=== PATIENT | male | born 1935 | race Caucasian/White ===

== ENCOUNTER 2020-07-14 14:15 | Inpatient (IN) | payer MEDICARE, MEDICAID, SELFPAY ==
[2020-07-14] VITALS (7 sets, daily range): BP systolic 116–151; BP diastolic 45–63; PULSE 64–81; RESP 16–22; TEMP 37.3–37.6; O2SAT 85–99; BMI 29.2
--- NOTE | 2020-07-14 14:34 | ECG_ITS ---
Test Reason : ALTERED MENTAL STATU Blood Pressure : / mmHG Vent. Rate : 082 BPM Atrial Rate : 082 BPM P-R Int : 148 ms QRS Dur : 126 ms QT Int : 430 ms P-R-T Axes : 025 -44 046 degrees QTc Int : 502 ms Normal sinus rhythm Left axis deviation Right bundle branch block Abnormal ECG When compared with ECG of 16-MAY-2019 19:32, Premature ventricular complexes are no longer Present Referred By: Selena Galindo Electronically Signed By:ANA QUINONES
--- NOTE | 2020-07-14 14:35 | CT_ITS ---
EXAMINATION: CT HEAD WITHOUT CONTRAST CLINICAL INFORMATION: Weakness. COMPARISON: Most recent CT brain dated 03/20/2017. TECHNIQUE: Contiguous axial imaging was performed from the skull base to vertex without intravenous administration of contrast. This CT examination was performed using dose optimization techniques as appropriate, variously including the following: *Automated exposure control. *Adjustment of mA and/or kV according to patient size (this includes techniques or standardized protocols for targeted exams where dose is matched to indication/reason for exam; i.e. extremities or head). *Use of iterative reconstruction technique. DLP: 865 mGy-cm FINDINGS: There is no evidence of acute intracranial hemorrhage or territorial infarction. No abnormal mass effect or midline shift is seen. Ldzx-dw-nnity matter differentiation is well preserved. No extra-axial fluid collections are identified. The ventricles and sulci are mildly prominent, consistent with mild cerebral atrophy. Hypoattenuation of the periventricular white matter, consistent with chronic microvascular ischemic disease. The osseous structures and soft tissues are normal. The mastoid air cells and visualized portions of the paranasal sinuses are well aerated. CT/CT head/brain wo con IMPRESSION: 1. No acute intracranial hemorrhage or mass effect. 2. Mild cerebral atrophy and chronic microvascular ischemic disease, similar when compared to the prior examination.
--- NOTE | 2020-07-14 14:36 | XR_ITS ---
EXAMINATION: XR CHEST CLINICAL INFORMATION: Shortness of breath COMPARISON: 05/16/2019 TECHNIQUE: Frontal view of the chest was obtained. FINDINGS: The patient is rotated towards the right. Normal heart size. Calcifications of the thoracic aorta. Patchy opacity in the right lower lobe. Left lung is clear. No pleural effusion or pneumothorax. No acute osseous abnormality. XR/XR chest 1V IMPRESSION: Patchy opacity in the right lower lobe, that may represent developing infiltrate.
--- NOTE | 2020-07-14 15:13 | ED_ITS ---
HPI - Weakness General Chief complaint: Altered Mental Status Stated complaint: weakness Time Seen by Provider: 07/14/20 14:20 Source: EMS and RN notes reviewed (From para 1) Mode of arrival: EMS Limitations: language barrier ([place] Citizen-speaking) and altered mental status (History of dementia) History of Present Illness HPI Narrative: 84yoM c PMHx of Alzheimer's dementia, CVA, TBI, dysphagia, DM type II, CAD, HTN, COPD, anemia, hypothyroidism, gout, and depression who is currently residing at [facility] presenting via EMS c c/o increased weakness/AMS, difficulty following directions they report that he usually takes his medications and today he was spitting them out x 3 days. Patient had negative rapid COVID swab done today at [facility] which was negative. On arrival with EMS patient was 87% on room air therefore we placed him on 3 L of nasal cannula oxygen and he is now around 94-96% on 3 L of nasal cannula oxygen. When I asked the patient questions he mainly groans and he stated ?my body hurts in [place]?. When I would ask him if he had any chest pain or abdominal pain he would just keep responding my body hurts in [place] and would continue to just goan. Related Data Allergies Allergy/AdvReac Type Severity Reaction Status Date / Time No Known Allergies Allergy Verified 07/14/20 14:30 [No Known Allergies*] Review of Systems Review of Systems: Yes Unobtainable due to mental condition and Unobtainable due to mental status PMFSH Past Medical History Attestation statement: The following information was validated with the patient. Medical History Alzheimer disease Chronic pain COPD (chronic obstructive pulmonary disease) COVID-19 CVA (cerebral vascular accident) Dysphagia GERD (gastroesophageal reflux disease) Gout Hypokalemia Hypothyroid Pneumonia Social History Social History Advance Directives: No Advance Directives Information Provided: No Physical Exam Vital Signs: Vital Signs: Last Vital Signs Temp 99.2 F 07/14/20 14:22 Pulse 71 07/14/20 15:25 Resp 22 H 07/14/20 14:22 BP 151/59 H 07/14/20 14:22 Pulse Ox 85 L 07/14/20 14:32 Body Mass Index 29.2 Vital signs have been reviewed as normal and appeared to be correct. Blood pressure normal. Heart rate normal. Respiration rate normal. Temperature normal. Oxygen saturation normal. Appearance: Lethargic. Disorientated due to history of Alzheimer's dementia. Acute Respiratory distress. Patient mainly groaning repeating My Body Hurts in [place] . Head: Normal external exam. Normocephalic. Atraumatic. Able to rotate head bilaterally. Eyes: PERRLA. EOMI. No nystagmus noted. Conjunctiva and sclera normal. Eyelids normal. Corneal reflex normal. ENT: Hearing normal. Pharynx normal. Uvula midline. tongue midline. Dry mucous membranes. No trismus noted. No drooling noted. No muffled voice noted. Neck: Normal inspection. Neck supple. FROM. No adenopathy. No meningeal signs. CVS: Normal heart rate and rhythm. Heart sound normal. No murmurs noted. Pulses normal throughout. Respiratory: Moderate acute Respiratory distress. With decreased breath sounds throughout. With inspiratory and expiratory wheezing throughout. Possible rhonchi noted. No rales noted. Chest nontender. Positive accessory muscle usage noted. Abdomen: Soft and nontender. Bowel sounds normal in all 4 quadrants. No distention noted. No organomegaly noted. No visible injury noted. Back: Full range of motion noted. Skin: Skin warm and dry. Normal skin color. Normal skin turgor. No rashes/lesions/lacerations noted. Extremities: No lower extremity edema. Extremities exhibit normal range of motion. Extremities nontender. Neuro: Disorientated. No motor deficit. No sensory deficit. Reflexes normal. Moving all extremities. No focal motor deficits. Cranial nerves II-XI intact bilaterally. When I explained to the patient to left of his by brows or to smile or to puff out his cheeks or to stick out his tongue he does not follow directions he just continues to groan and report that his body hurts. He did attempt to squeeze my hands with his fingers and he did have equal strength bilaterally. He is able to lift his hands up and they do not drop to his face. He is able to move his lower extremities and lift them up. No tremor noted. No fasciculations noted. Muscle tone normal throughout. No asterixis noted. Course Course Course Narrative: 14:35PM - 84yoM c PMHx of Alzheimer's dementia, CVA, TBI, dysphagia, DM type II, CAD, HTN, COPD, anemia, hypothyroidism, gout, and depression who is currently residing at [facility] presenting via EMS c c/o increased weakness/AMS, difficulty following directions x 3 days. Patient had negative rapid COVID swab done today at [facility]. - On arrival with EMS patient was 87% on room air therefore we placed him on 3 L of nasal cannula oxygen and he is now around 94-96% on 3 L of nasal cannula oxygen. Patient is a lethargic and confused continues to moan and fritzan speaking in [place] saying ?my body hurts?. Although no acute neuro deficits noted. Patient is moving all extremities. - concern for CVA vs ACS vs pneumonia vs electrolyte abnormality - Plan: Labs, CXR, Respiratory Panel, blood cultures, lactic acid, CT scan of brain, EKG, UA. Provide IVF's, 1 hour long breathing treatment, 125 mg of Solu- Medrol then re-evaluate. Reevaluation(s) Reevaluation #1: - initially for the First 2 hours and half we were unable to obtain IV access and a blood draw although at this time they were able to get the patient's blood and his labs are pending at this time. UA positive for nitrates which cefepime will cover as well. Sign-out a IRIS Levin at this time. Time: 17:04 MDM - Weakness Medical Records Attestation: I reviewed the patient's medical records. Lab Data Attestation: I reviewed the patient's lab results. Result diagrams: 07/14/20 16:41 07/14/20 16:41 Labs: Lab Results 07/14/20 07/14/20 07/14/20 Range/Units 16:41 16:41 16:41 WBC Cancelled RBC Cancelled Hgb Cancelled Hct Cancelled MCV Cancelled MCH Cancelled MCHC Cancelled RDW Cancelled Plt Count Cancelled MPV Cancelled Immature Gran % (Auto) Cancelled Neut % (Auto) Cancelled Lymph % (Auto) Cancelled [place] % (Auto) Cancelled Eos % (Auto) Cancelled Baso % (Auto) Cancelled Lymph # (Auto) Cancelled [place] # (Auto) Cancelled Eos # (Auto) Cancelled Baso # (Auto) Cancelled Abs Immat Gran (auto) Cancelled Absolute Neuts (auto) Cancelled Absolute Nucleated RBC Cancelled Nucleated RBC % (auto) Cancelled PT (10.8-13.0) SEC INR (0.9-1.1) Lactic Acid 1.6 (0.5-2.0) mmol/L Urine Color YELLOW Urine Appearance HAZY Urine pH 7.5 (5.0-8.0) Ur Specific [place] 1.010 (1.005-1.025) Urine Protein NEG (NEG-TRACE) MG/DL Urine Glucose (UA) NEG (NEG) MG/DL Urine Ketones NEG (NEG) MG/DL Urine Blood TRACE (NEG) Urine Nitrite POS H (NEG) Ur Leukocyte Esterase 3+ H (NEG) Urine RBC 1-4 (0) /HPF Urine WBC 50-75 H (0-4) /HPF Ur Squamous Epith Cells TRACE /LPF Urine Bacteria 3+ /LPF 07/14/20 Range/Units 17:00 WBC RBC Hgb Hct MCV MCH MCHC RDW Plt Count MPV Immature Gran % (Auto) Neut % (Auto) Lymph % (Auto) [place] % (Auto) Eos % (Auto) Baso % (Auto) Lymph # (Auto) [place] # (Auto) Eos # (Auto) Baso # (Auto) Abs Immat Gran (auto) Absolute Neuts (auto) Absolute Nucleated RBC Nucleated RBC % (auto) PT 15.2 H (10.8-13.0) SEC INR 1.3 H (0.9-1.1) Lactic Acid (0.5-2.0) mmol/L Urine Color Urine Appearance Urine pH (5.0-8.0) Ur Specific [place] (1.005-1.025) Urine Protein (NEG-TRACE) MG/DL Urine Glucose (UA) (NEG) MG/DL Urine Ketones (NEG) MG/DL Urine Blood (NEG) Urine Nitrite (NEG) Ur Leukocyte Esterase (NEG) Urine RBC (0) /HPF Urine WBC (0-4) /HPF Ur Squamous Epith Cells /LPF Urine Bacteria /LPF Imaging Data Chest x-ray: Attestation: I personally reviewed and interpreted this imaging study as follows: Radiologist's impression: IMPRESSION: Patchy opacity in the right lower lobe, that may represent developing infiltrate. ECG Data Attestation: I personally reviewed and interpreted this ECG as follows: Critical Care Time Critical Care Time Critical Care Time: Yes Total Critical Care Time: 60 Attestation: I personally attest to this time spent taking care of the patient Discharge Plan Discharge Clinical Impression: Hypoxia, Acute respiratory distress
[2020-07-14] MEDS: Albuterol Sulfate (0.083%) 2.5 MG/3 ML VIAL.NEB 10 MG INHALE (15:18)
[2020-07-14 16:55] LABS: Glucose Urine UA NEG (NEG); Leukocyte Esterase Urine 3+ (NEG); Nitrite Urine POS (NEG); PH 7.5 (5.0-8.0); Urine Blood TRACE (NEG); Urine Ketones NEG (NEG); Urine Protein NEG (NEG-TRACE)
[2020-07-14 16:59] LABS: Appearance Urine HAZY; Color Urine YELLOW
[2020-07-14 17:06] LABS: Bacteria Urine 3+ /LPF; Squamous Epithelial Cell Urine TRACE /LPF; WBC Urine 50-75 /HPF (0-4)
[2020-07-14 17:10] LABS: Adenovirus PCR Not Detected (Not Detect.); Bordetella parapertussis PCR Not Detected (Not Detect.); Bordetella pertussis PCR Not Detected (Not Detect.); Chlamydia pneumoniae PCR Not Detected (Not Detect.); Coronavirus 229E PCR Not Detected (Not Detect.); Coronavirus HKU1 PCR Not Detected (Not Detect.); Coronavirus NL63 PCR Not Detected (Not Detect.); Coronavirus OC43 PCR Not Detected (Not Detect.); Human metapneumovirus PCR Not Detected (Not Detect.); Influenza A PCR Not Detected (Not Detect.); Influenza B PCR Not Detected (Not Detect.); Mycoplasma pneumoniae PCR Not Detected (Not Detect.); Parainfluenza 1 PCR Not Detected (Not Detect.); Parainfluenza 2 PCR Not Detected (Not Detect.); Parainfluenza 3 PCR Not Detected (Not Detect.); Parainfluenza 4 PCR Not Detected (Not Detect.); RSV PCR Not Detected (Not Detect.); SARS-CoV-2 PCR Not Detected (Not Detect.)
[2020-07-14 17:13] LABS: INTERNATIONAL NORM RATIO 1.3 (0.9-1.1); Prothrombin Time 15.2 SEC (10.8-13.0)
[2020-07-14 17:14] LABS: Lactic Acid 1.6 mmol/L (0.5-2.0)
--- NOTE | 2020-07-14 17:17 | PC.NURSE ---
Patient difficult stick, 2 RN's attempted IV's x 2 without success. IV established by 3rd RN via ultrasound
[2020-07-14 17:19] LABS: Alanine Aminotransferase 28 U/L (0-40); Albumin Level 2.9 g/dL (3.5-5.0); Alkaline Phosphatase 133 U/L (39-117); Anion Gap 11 (12-20); Aspartate Amino Transferase 30 U/L (5-37); Bilirubin Direct 0.4 mg/dL (0.0-0.5); Bilirubin Total 0.6 mg/dL (0.0-1.0); Blood Urea Nitrogen 23 mg/dL (9-16); Calcium 7.7 mg/dL (8.4-10.2); Carbon Dioxide 22 mmol/L (22-29); Chloride 111 mmol/L (96-108); Estimated Glomerular Filt Rate > 60; Glucose Random 116 mg/dL (60-115); Magnesium 2.2 mg/dL (1.6-2.6); Potassium 4.9 mmol/l (3.3-5.1); Sodium 139 mmol/L (135-145); Total Protein 6.6 g/dL (6.5-8.0)
[2020-07-14 17:25] LABS: Basophils Percent Auto 0.2 % (0-2); Eosinophils Absolute Auto 0.3 X10*3/uL (0.0-0.4); Eosinophils Percent Auto 1.8 % (0-4); Hematocrit 36.6 % (42-52); Hemoglobin 11.4 g/dl (14.0-18.0); Imm Gran Pct Auto 0.6 % (0.0-0.4); Lymphocytes Absolute Auto 2.1 X10*3/uL (1.2-4.9); Lymphocytes Percent Auto 12.6 % (20-40); MANUAL DIFF FLAG NO; Mean Corpuscular HGB Conc 31.1 g/dl (31.0-36.0); Mean Corpuscular Hemoglobin 27.7 pg (27.0-33.0); Mean Corpuscular Volume 88.8 fL (80-98); Mean Platelet Volume 11.5 fL (9.4-12.4); Monocytes Absolute Auto 1.9 X10*3/uL (0.1-1.2); Monocytes Percent Auto 11.3 % (2-11); Neutrophils Absolute Auto 12.3 X10*3/uL (2.0-8.3); Neutrophils Percent Auto 73.5 % (45-73); Platelet Count 385 X10*3/uL (160-400); Red Blood Count 4.12 X10*6/uL (4.60-5.80); Red Cell Distribution Width 15.9 % (11.0-16.0); SCAN SMEAR FLAG 1; White Blood Count 16.8 X10*3/uL (4.8-10.8)
[2020-07-14] MEDS: cefEPime HCl 2 GM in 0.9 % Sodium Chloride 50 ML IV (17:39)
[2020-07-14] MEDS: 0.9 % Sodium Chloride 1,000 ML 999 ML IVCONT (17:40)
[2020-07-14] MEDS: methylPREDNISolone Sod Succ/PF 125 MG/2 ML VIAL IVPUSH (17:40)
[2020-07-14 19:38] LABS: COVID-19 Test Negative (Negative)
--- NOTE | 2020-07-14 20:40 | PM.IMHP ---
History of Present Illness Date of Service: 07/14/20 Chief Complaint: AMS 84 y/o male with an extended PMHX who [facility] due [facility] worsening mental status. The hx is unclear and cannot be obtained from patient given underlying severe dementia, but per [facility] patient was noted for the past several days to not be himself . There is no documented evidence of fever. Patient has a hx of being covid positive in the past but today upon tested was found to be negative. On presentation to the ED patient meets sepsis criteria, WBC found to be 16.8, CXR showing RLL infiltrates, UA positive for UTI and CT head negative for any acute intracranial pathology. Patient was given one dose of Cefepime and Vanco and decision for admission was given. Patient seen and examined at the bedside, laying down in bed in no acute distress. saturating well on nasal cannula. Per ED patient was saturating 86% on room air upon presentation. ROS unable to be obtained given severe dementia. Physical exam showing no acute findings. mentals status appears to be patient's baseline, answering to verbal stimuli but not following commands. PMHx: of Alzheimer's dementia, CVA, TBI, dysphagia, DM type II, CAD, HTN, COPD, anemia, hypothyroidism, gout, and depression Review of Systems Constitutional: Constitutional: Reports other (unable to be obtained) [facility] Medical History Alzheimer disease Chronic pain COPD (chronic obstructive pulmonary disease) COVID-19 CVA (cerebral vascular accident) Dysphagia GERD (gastroesophageal reflux disease) Gout Hypokalemia Hypothyroid Pneumonia Functional capacity: independent ambulation Social History Alcohol intake: never Smoking Status: Never smoker Use of substances other than those prescribed or required for medical reasons: No Advance Directives: No Advance Directives Information Provided: No Meds Allergies Allergy/AdvReac Type Severity Reaction Status Date / Time No Known Allergies Allergy Verified 07/14/20 14:30 [No Known Allergies*] Home Medications Medication Instructions Recorded Confirmed Type allopurinol 1 tab PO DAILY 07/14/20 07/14/20 History amlodipine 1 tab PO DAILY 07/14/20 07/14/20 History amlodipine 1 tab PO DAILY 07/14/20 07/14/20 History artificial tears solution OPHTHALMIC (EYE) Q8-10H PRN 07/14/20 History atorvastatin 40 mg PO DAILY 07/14/20 07/14/20 History cyanocobalamin (vitamin B-12) 1 ml IM 07/14/20 History escitalopram oxalate 1 tab PO DAILY 07/14/20 07/14/20 History famotidine 1 tab PO BID 07/14/20 07/14/20 History levothyroxine 88 mcg PO 6XW 07/14/20 07/14/20 History lithium carbonate 1 cap PO BID 07/14/20 07/14/20 History potassium chloride 20 meq PO DAILY 07/14/20 07/14/20 History quetiapine 100 mg PO TID 07/14/20 07/14/20 History risperidone 1 tab PO BEDTIME 07/14/20 07/14/20 History tamsulosin 0.8 mg PO DAILY 07/14/20 07/14/20 History topiramate 1 tab PO BID 07/14/20 07/14/20 History umeclidinium [Incruse Ellipta] 1 inh INHALATION DAILY 07/14/20 07/14/20 History Physical Exam Vital Signs and Narrative: Vital Signs: Last Vital Signs Temp 99.6 F 07/14/20 18:34 Pulse 78 07/14/20 19:10 Resp 20 07/14/20 19:10 BP 138/62 07/14/20 19:10 Pulse Ox 94 07/14/20 19:10 Body Mass Index 29.2 Const: General: cooperative, comfortable and no acute distress HENMT: Head: Yes normal to inspection Eyes: General: appearance normal, both eyes and all related structures Neck: Yes normal visual inspection Chest: Chest palpation & inspection: normal inspection of the chest Resp: Effort & Inspection: other (crackles heard, no evidence of wheezes ) Cardio: Jugular venous distension: no JVD Rate: regular rate Rhythm: regular rhythm Heart sounds: S1 normal heart sound present and S2 normal heart sound present GI: Inspection: Yes normal to inspection Percussion: Yes normal to percussion Skin: General skin exam: no rashes or lesions noted Neuro: General: other (disoriented) Results Labs CBC and Chem 7: 07/14/20 17:15 07/14/20 16:41 Labs: Laboratory Results - last 24 hr 1207/14/20 07/14/20 16:41 16:41 16:41 MCV Cancelled MCH Cancelled MCHC Cancelled RDW Cancelled Plt Count Cancelled MPV Cancelled Immature Gran % (Auto) Cancelled Neut % (Auto) Cancelled Lymph % (Auto) Cancelled [place] % (Auto) Cancelled Eos % (Auto) Cancelled Baso % (Auto) Cancelled Lymph # (Auto) Cancelled [place] # (Auto) Cancelled Eos # (Auto) Cancelled Baso # (Auto) Cancelled Abs Immat Gran (auto) Cancelled Absolute Neuts (auto) Cancelled Absolute Nucleated RBC Cancelled Nucleated RBC % (auto) Cancelled PT INR Anion Gap 11 L Estim Creat Clear Calc 47.0 Estimated GFR > 60 Random Glucose 116 H Lactic Acid Calcium 7.7 L Magnesium 2.2 Total Bilirubin 0.6 Direct Bilirubin 0.4 AST 30 ALT 28 Alkaline Phosphatase 133 H Total Protein 6.6 Albumin 2.9 L Urine Color YELLOW Urine Appearance HAZY Urine pH 7.5 Ur Specific [place] 1.010 Urine Protein NEG Urine Glucose (UA) NEG Urine Ketones NEG Urine Blood TRACE Urine Nitrite POS H Ur Leukocyte Esterase 3+ H Urine RBC 1-4 Urine WBC 50-75 H Ur Squamous Epith Cells TRACE Urine Bacteria 3+ COVID-19 ([facility]) COVID-19 Clin Com 07/14/20 07/14/20 07/14/20 16:41 17:00 17:15 MCV 88.8 MCH 27.7 MCHC 31.1 RDW 15.9 Plt Count 385 MPV 11.5 Immature Gran % (Auto) 0.6 H Neut % (Auto) 73.5 H Lymph % (Auto) 12.6 L [place] % (Auto) 11.3 H Eos % (Auto) 1.8 Baso % (Auto) 0.2 Lymph # (Auto) 2.1 [place] # (Auto) 1.9 H Eos # (Auto) 0.3 Baso # (Auto) 0.0 Abs Immat Gran (auto) 0.10 H Absolute Neuts (auto) 12.3 H Absolute Nucleated RBC 0.000 Nucleated RBC % (auto) 0.0 PT 15.2 H INR 1.3 H Anion Gap Estim Creat Clear Calc Estimated GFR Random Glucose Lactic Acid 1.6 Calcium Magnesium Total Bilirubin Direct Bilirubin AST ALT Alkaline Phosphatase Total Protein Albumin Urine Color Urine Appearance Urine pH Ur Specific [place] Urine Protein Urine Glucose (UA) Urine Ketones Urine Blood Urine Nitrite Ur Leukocyte Esterase Urine RBC Urine WBC Ur Squamous Epith Cells Urine Bacteria COVID-19 ([facility]) COVID-19 Clin Com 07/14/20 19:18 MCV MCH MCHC RDW Plt Count MPV Immature Gran % (Auto) Neut % (Auto) Lymph % (Auto) [place] % (Auto) Eos % (Auto) Baso % (Auto) Lymph # (Auto) [place] # (Auto) Eos # (Auto) Baso # (Auto) Abs Immat Gran (auto) Absolute Neuts (auto) Absolute Nucleated RBC Nucleated RBC % (auto) PT INR Anion Gap Estim Creat Clear Calc Estimated GFR Random Glucose Lactic Acid Calcium Magnesium Total Bilirubin Direct Bilirubin AST ALT Alkaline Phosphatase Total Protein Albumin Urine Color Urine Appearance Urine pH Ur Specific [place] Urine Protein Urine Glucose (UA) Urine Ketones Urine Blood Urine Nitrite Ur Leukocyte Esterase Urine RBC Urine WBC Ur Squamous Epith Cells Urine Bacteria COVID-19 ([facility]) Negative COVID-19 Clin Com See Note Imaging Radiologist's Impressions: Impressions Head CT 07/14/20 14:35 IMPRESSION: 1. No acute intracranial hemorrhage or mass effect. 2. Mild cerebral atrophy and chronic microvascular ischemic disease, similar when compared to the prior examination. Chest X-Ray 07/14/20 14:36 IMPRESSION: Patchy opacity in the right lower lobe, that may represent developing infiltrate. Assessment and Plan (1) Sepsis: Status: Acute Keep MAP >65 mmHg Continue with Rocephin and doxycycline for gram negative and atypical coverage Follow up Respiratory panel Follow up Bcx Continue with O2 therapy and titrate down as tolerated Isolation given unclear hx of covid 19 Infectious disease consult in the am (2) Pneumonia: Status: Acute plan as above (3) UTI (urinary tract infection): Status: Acute plan as above (4) Gout: Status: Acute continue with allopurinol home dose (5) Hypertension: Status: Acute continue with amlodipine home dose (6) Hyperlipidemia: Status: Acute continue with statin home dose (7) Alzheimer disease: Status: Acute continue with escitalopram home dose continue with lithium home dose continue with risperidone home dose (8) GERD (gastroesophageal reflux disease): Status: Acute continue with famotidine home dose (9) Hypothyroid: Status: Acute continue with levothyroxine home dose (10) BPH (benign prostatic hyperplasia): Status: Acute continue wiht flomax home dose (11) Seizures: Status: Acute continue with topiramate home dose
[2020-07-15] VITALS (7 sets, daily range): BP systolic 119–156; BP diastolic 46–70; PULSE 56–68; RESP 14–18; TEMP 36.6–36.8; O2SAT 95–99; BMI 29.8
[2020-07-15 00:10] LABS: Troponin-I High Sensitivity < 3.5 ng/L (<3.5-35.0)
[2020-07-15] MEDS: Lithium Carbonate 300 MG CAPSULE PO ×3 (00:15→20:17)
[2020-07-15] MEDS: Topiramate 25 MG TABLET PO ×3 (00:15→20:17)
[2020-07-15] MEDS: Famotidine 20 MG TABLET PO ×3 (00:15→20:17)
[2020-07-15] MEDS: Heparin Sodium,Porcine 5,000 UNIT/ML VIAL 5000 UNIT SUBCUT ×3 (00:17→20:18)
[2020-07-15] MEDS: risperiDONE 1 MG TABLET PO ×2 (00:18→20:18)
[2020-07-15] MEDS: QUEtiapine Fumarate 100 MG TABLET PO ×3 (00:18→20:18)
--- NOTE | 2020-07-15 00:22 | PC.NURSE ---
pt medicated per sep, tolerated fairly well, meds crushed in vanilla pudding.
[2020-07-15] MEDS: 0.9 % Sodium Chloride Flush 3 ML SYRINGE IVFLUSH ×2 (03:13→09:06)
[2020-07-15] MEDS: cefTRIAXone sodium 1 GM in 0.9 % Sodium Chloride 50 ML IV (06:49)
[2020-07-15 07:21] LABS: Anion Gap 15 (12-20); Blood Urea Nitrogen 27 mg/dL (9-16); Carbon Dioxide 15 mmol/L (22-29); Chloride 116 mmol/L (96-108); Creatinine Clr Calc Pharmacy 48.8; Estimated Glomerular Filt Rate > 60; Glucose Random 161 mg/dL (60-115); Potassium 5.3 mmol/l (3.3-5.1); Sodium 141 mmol/L (135-145)
[2020-07-15] MEDS: Doxycycline Hyclate 100 MG in 0.9 % Sodium Chloride 250 ML 166.67 MG IV (07:48)
[2020-07-15 08:10] LABS: Rhino/Enterovirus PCR Detected (Not Detect.)
[2020-07-15 08:25] LABS: MANUAL DIFF FLAG NO
[2020-07-15 08:26] LABS: Basophils Percent Auto 0.2 % (0-2); Hematocrit 39.4 % (42-52); Hemoglobin 12.2 g/dl (14.0-18.0); Imm Gran Abs Auto 0.06 X10*3/uL (0.00-0.03); Imm Gran Pct Auto 0.5 % (0.0-0.4); Lymphocytes Absolute Auto 1.1 X10*3/uL (1.2-4.9); Lymphocytes Percent Auto 9.8 % (20-40); Mean Corpuscular Hemoglobin 27.4 pg (27.0-33.0); Mean Corpuscular Volume 88.3 fL (80-98); Mean Platelet Volume 11.9 fL (9.4-12.4); Monocytes Absolute Auto 0.3 X10*3/uL (0.1-1.2); Monocytes Percent Auto 2.5 % (2-11); Neutrophils Absolute Auto 9.5 X10*3/uL (2.0-8.3); Platelet Count 332 X10*3/uL (160-400); Red Blood Count 4.46 X10*6/uL (4.60-5.80); Red Cell Distribution Width 15.8 % (11.0-16.0); White Blood Count 10.9 X10*3/uL (4.8-10.8)
[2020-07-15] MEDS: Tamsulosin HCL 0.4 MG CAPSULE 0.8 MG PO (10:21)
[2020-07-15] MEDS: Escitalopram Oxalate 5 MG TABLET PO (10:21)
[2020-07-15] MEDS: amLODIPine Besylate 5 MG TABLET 7.5 MG PO (10:22)
[2020-07-15] MEDS: Atorvastatin Calcium 40 MG TABLET PO (10:24)
[2020-07-15] MEDS: Sodium Polystyrene Sulfon/Sorb 15 GM/60 ML ORAL.SUSP 30 GM PO (10:25)
--- NOTE | 2020-07-15 11:45 | PC.NURSE ---
report obtained from margot- patient currently alert to baseline, [place] speaking, vitals stable, pt awaiting inpt bed, emptied urinal, will continue to monitor
--- NOTE | 2020-07-15 12:36 | PC.NURSE ---
med was not available for previous RN
--- NOTE | 2020-07-15 13:19 | PC.NURSE ---
called floor, physician office secretary stated rn will call back
--- NOTE | 2020-07-15 14:53 | PC.NURSE ---
PT PULLED IV FROM RT AC, NO BLEEDING FROM SITE
--- NOTE | 2020-07-15 15:02 | PC.NURSE ---
report called to floor however patient is not able to go up as there was a bed change and the patient has not left 454 as of yet.
--- NOTE | 2020-07-15 17:12 | HO.PM.IMPN ---
Subjective Subjective Date of Service: 07/15/20 Interval History: The patient was seen and evaluated this morning Laying in bed, feels comfortable Denies any fever, chills but reports mild shortness of breath No reported other overnight events. Systemic review: No fever, chills or weakness No chest pain, palpitation Mild shortness of breath or coughing No abdominal pain, nausea or vomiting No urinary symptoms No any rash or wounds Physical Exam Vital Signs: Vital Signs: Last Vital Signs Temp 98.1 F 07/15/20 14:58 Pulse 66 07/15/20 14:58 Resp 18 07/15/20 14:58 BP 141/52 H 07/15/20 14:58 Pulse Ox 95 07/15/20 14:58 Body Mass Index 29.2 Constitutional : Alert, oriented to self only, not in distress Neck : Normal inspection, Supple Cardiovascular : RRR, S1 S2, no lower extremity edema Respiratory : Right lower lobe crackles and decreased air entry, no wheezes or rhonchi Gastrointestinal: soft, lax, Normal bowel sounds, Non tender Skin : Warm/Dry, No rash Neurological : Alert & oriented to self only, No focal deficit Objective Data Current Medications Generic Name Dose Route Start Last Admin Trade Name Freq PRN Reason Stop Dose Admin Allopurinol 100 mg 07/15/20 09:00 07/15/20 12:36 Allopurinol 100 Mg Tablet PO Not Given DAILY DANIEL Amlodipine Besylate 7.5 mg 07/15/20 09:00 07/15/20 10:22 Amlodipine Besylate 5 Mg Tablet PO 7.5 mg DAILY DANIEL Administration Protocol Atorvastatin Calcium 40 mg 07/15/20 09:00 07/15/20 10:24 Atorvastatin Calcium 40 Mg Tablet PO 40 mg DAILY DANIEL Administration Escitalopram Oxalate 5 mg 07/15/20 09:00 07/15/20 10:21 Escitalopram Oxalate 5 Mg Tablet PO 5 mg DAILY DANIEL Administration Famotidine 20 mg 07/14/20 21:00 07/15/20 10:21 Famotidine 20 Mg Tablet PO 20 mg BID DANIEL Administration Heparin Sodium (Porcine) 5,000 unit 07/14/20 20:45 07/15/20 07:51 Heparin Sodium,Porcine 5,000 Unit/Ml Vial SUBCUT 5,000 unit Q8H DANIEL Administration Ceftriaxone Sodium 1 gm/ 50 mls @ 100 mls/hr 07/15/20 06:00 07/15/20 07:19 Sodium Chloride IV Infused Q24H DANIEL Infusion Doxycycline Hyclate 100 mg/ 250 mls @ 166.67 mls/hr 07/15/20 06:00 07/15/20 10:30 Sodium Chloride IV Infused Q24H DANIEL Infusion Levothyroxine Sodium 88 mcg 07/16/20 06:00 Levothyroxine Sodium 88 Mcg Tablet PO [id number] DANIEL [place] Carbonate 300 mg 07/14/20 21:00 07/15/20 10:23 [place] Carbonate 300 Mg Capsule PO 300 mg BID DANIEL Administration Non-Formulary Medication 1 inhalation 07/15/20 09:00 Umeclidinium [Incruse Ellipta] INHALE DAILY DANIEL Quetiapine Fumarate 100 mg 07/14/20 21:00 07/15/20 10:24 Quetiapine Fumarate 100 Mg Tablet PO 100 mg TID DANIEL Administration Risperidone 1 mg 07/14/20 21:00 07/15/20 00:18 Risperidone 1 Mg Tablet PO 1 mg BEDTIME DANIEL Administration Sodium Chloride 3 ml 07/15/20 00:00 07/15/20 09:06 0.9 % Sodium Chloride Flush 3 Ml Syringe IVFLUSH 3 ml QSHIFT DANIEL Administration Tamsulosin HCl 0.8 mg 07/15/20 09:00 07/15/20 10:21 Tamsulosin Hcl 0.4 Mg Capsule PO 0.8 mg DAILY DANIEL Administration Topiramate 25 mg 07/14/20 21:00 07/15/20 10:21 Topiramate 25 Mg Tablet PO 25 mg BID DANIEL Administration Labs CBC & Chem 7: 07/15/20 08:04 07/15/20 06:26 Microbiology Microbiology Results: Microbiology 07/14/20 16:41 Urine clean catch - Clean Catch Midstream Urine Culture - Preliminary Gram negative fam Assessment and Plan (1) Pneumonia: Status: Acute (2) Acute UTI: Status: Acute (3) Sepsis: Status: Acute (4) Alzheimer disease: Status: Acute Assessment and Plan: 84 y/o male with an extended PMHX who presented from [facility] due to worsening mental status. Sepsis Likely secondary to pneumonia Not requiring oxygen supplement Continue ceftriaxone and doxycycline Negative respiratory panel next [place] pending blood cultures Pending ID evaluation UTI Urinalysis concerning for infection next [place] pending urine culture Antibiotics Hyperkalemia Potassium of 5.3 Received Kayexalate next [place] to repeat BMP Metabolic acidosis Bicarbonate of 15 Start sodium bicarb orally Monitor BMP Altered mental status Likely secondary to infection Improving next [place]yme continue to monitor and avoid medications that would affect his mental status Gout Continue allopurinol Alzheimer disease continue with escitalopram home dose continue with lithium home dose continue with risperidone home dose This BPH Continue Flomax DVT PPX Heparin SC
[2020-07-15] MEDS: Sodium Bicarbonate 650 MG TABLET PO (20:18)
[2020-07-16] VITALS (8 sets, daily range): BP systolic 128–169; BP diastolic 58–93; PULSE 57–73; RESP 18–93; TEMP 36.4–37.2; O2SAT 93–99
[2020-07-16] MEDS: 0.9 % Sodium Chloride Flush 3 ML SYRINGE IVFLUSH ×3 (00:30→15:26)
[2020-07-16] MEDS: Doxycycline Hyclate 100 MG in 0.9 % Sodium Chloride 250 ML 166.67 MG IV (05:03)
[2020-07-16] MEDS: cefTRIAXone sodium 1 GM in 0.9 % Sodium Chloride 50 ML IV (05:03)
[2020-07-16] MEDS: Heparin Sodium,Porcine 5,000 UNIT/ML VIAL 5000 UNIT SUBCUT ×3 (05:04→21:10)
[2020-07-16 06:22] LABS: Hematocrit 37.8 % (42-52); Hemoglobin 11.8 g/dl (14.0-18.0); Mean Corpuscular HGB Conc 31.2 g/dl (31.0-36.0); Mean Corpuscular Hemoglobin 27.5 pg (27.0-33.0); Mean Corpuscular Volume 88.1 fL (80-98); Mean Platelet Volume 11.9 fL (9.4-12.4); Platelet Count 361 X10*3/uL (160-400); Red Blood Count 4.29 X10*6/uL (4.60-5.80); Red Cell Distribution Width 15.9 % (11.0-16.0); White Blood Count 15.7 X10*3/uL (4.8-10.8)
[2020-07-16 06:43] LABS: Anion Gap 10 (12-20); Blood Urea Nitrogen 25 mg/dL (9-16); Calcium 8.2 mg/dL (8.4-10.2); Carbon Dioxide 22 mmol/L (22-29); Chloride 114 mmol/L (96-108); Creatinine Clr Calc Pharmacy 61.7; Estimated Glomerular Filt Rate > 60; Glucose Random 91 mg/dL (60-115); Potassium 3.9 mmol/l (3.3-5.1); Sodium 142 mmol/L (135-145)
--- NOTE | 2020-07-16 08:28 | MHC.CM.PN ---
CM left a detailed message for Patient's Guardian/Jonathan Urbina at [phone] and CM will mail original IMM to him and a copy has been placed on the chart. Goal for dc appears to be for Patient to return to LTC @ [facility]. CM has initiated and will follow for dc planning.
[2020-07-16] MEDS: Escitalopram Oxalate 5 MG TABLET PO (09:35)
[2020-07-16] MEDS: amLODIPine Besylate 5 MG TABLET 7.5 MG PO (09:35)
[2020-07-16] MEDS: Sodium Bicarbonate 650 MG TABLET PO ×2 (09:35→21:11)
[2020-07-16] MEDS: Atorvastatin Calcium 40 MG TABLET PO (09:36)
[2020-07-16] MEDS: QUEtiapine Fumarate 100 MG TABLET PO ×3 (09:36→21:11)
[2020-07-16] MEDS: Famotidine 20 MG TABLET PO ×2 (09:36→21:11)
[2020-07-16] MEDS: allopurinoL 100 MG TABLET PO (09:36)
[2020-07-16] MEDS: Tamsulosin HCL 0.4 MG CAPSULE 0.8 MG PO (09:36)
[2020-07-16] MEDS: Lithium Carbonate 300 MG CAPSULE PO ×2 (09:37→21:11)
[2020-07-16] MEDS: Topiramate 25 MG TABLET PO ×2 (09:37→21:11)
[2020-07-16] MEDS: Levothyroxine Sodium 88 MCG TABLET PO (09:38)
--- NOTE | 2020-07-16 11:12 | HO.PM.IMPN ---
Subjective Subjective Date of Service: 07/16/20 Interval History: The patient was seen and evaluated this morning Laying in bed, feels comfortable Denies any fever, chills but reports mild shortness of breath and coughing No reported other overnight events. Systemic review: No fever, chills or weakness No chest pain, palpitation Mild shortness of breath and coughing No abdominal pain, nausea or vomiting No urinary symptoms No any rash or wounds Physical Exam Vital Signs: Vital Signs: Last Vital Signs Temp 99.0 F 07/16/20 07:58 Pulse 57 07/16/20 09:35 Resp 18 07/16/20 07:58 BP 160/74 H 07/16/20 09:35 Pulse Ox 97 07/16/20 07:58 Body Mass Index 29.8 Constitutional : Alert, oriented to self only, not in distress Neck : Normal inspection, Supple Cardiovascular : RRR, S1 S2, no lower extremity edema Respiratory : Right lower lobe crackles and decreased air entry, no wheezes or rhonchi Gastrointestinal: soft, lax, Normal bowel sounds, Non tender Skin : Warm/Dry, No rash Neurological : Alert & oriented to self only, No focal deficit Objective Data Current Medications Generic Name Dose Route Start Last Admin Trade Name Freq PRN Reason Stop Dose Admin Allopurinol 100 mg 07/15/20 09:00 07/16/20 09:36 Allopurinol 100 Mg Tablet PO 100 mg DAILY DANIEL Administration Amlodipine Besylate 7.5 mg 07/15/20 09:00 07/16/20 09:35 Amlodipine Besylate 5 Mg Tablet PO 7.5 mg DAILY DANIEL Administration Protocol Atorvastatin Calcium 40 mg 07/15/20 09:00 07/16/20 09:36 Atorvastatin Calcium 40 Mg Tablet PO 40 mg DAILY DANIEL Administration Escitalopram Oxalate 5 mg 07/15/20 09:00 07/16/20 09:35 Escitalopram Oxalate 5 Mg Tablet PO 5 mg DAILY DANIEL Administration Famotidine 20 mg 07/14/20 21:00 07/16/20 09:36 Famotidine 20 Mg Tablet PO 20 mg BID DANIEL Administration Heparin Sodium (Porcine) 5,000 unit 07/14/20 20:45 07/16/20 05:04 Heparin Sodium,Porcine 5,000 Unit/Ml Vial SUBCUT 5,000 unit Q8H DANIEL Administration Ceftriaxone Sodium 1 gm/ 50 mls @ 100 mls/hr 07/15/20 06:00 07/16/20 06:58 Sodium Chloride IV Infused Q24H [facility] Infusion Doxycycline Hyclate 100 mg/ 250 mls @ 166.67 mls/hr 07/15/20 06:00 07/16/20 06:58 Sodium Chloride IV Infused Q24H DANIEL Infusion Levothyroxine Sodium 88 mcg 07/16/20 06:00 07/16/20 09:38 Levothyroxine Sodium 88 Mcg Tablet PO 88 mcg [id number] [facility] Administration [place] Carbonate 300 mg 07/14/20 21:00 07/16/20 09:37 [place] Carbonate 300 Mg Capsule PO 300 mg BID [facility] Administration Non-Formulary Medication 1 inhalation 07/15/20 09:00 Umeclidinium [Incruse Ellipta] INHALE DAILY [facility] Quetiapine Fumarate 100 mg 07/14/20 21:00 07/16/20 09:36 Quetiapine Fumarate 100 Mg Tablet PO 100 mg TID [facility] Administration Risperidone 1 mg 07/14/20 21:00 07/15/20 20:18 Risperidone 1 Mg Tablet PO 1 mg BEDTIME [facility] Administration Senna 8.6 mg 07/15/20 17:25 Sennosides 8.6 Mg Tablet PO DAILY PRN Constipation Sodium Bicarbonate 650 mg 07/15/20 21:00 07/16/20 09:35 Sodium Bicarbonate 650 Mg Tablet PO 650 mg BID [facility] Administration Sodium Chloride 3 ml 07/15/20 00:00 07/16/20 09:36 0.9 % Sodium Chloride Flush 3 Ml Syringe IVFLUSH 3 ml QSHIFT [facility] Administration Tamsulosin HCl 0.8 mg 07/15/20 09:00 07/16/20 09:36 Tamsulosin Hcl 0.4 Mg Capsule PO 0.8 mg DAILY [facility] Administration Topiramate 25 mg 07/14/20 21:00 07/16/20 09:37 Topiramate 25 Mg Tablet PO 25 mg BID [facility] Administration Labs CBC & Chem 7: 07/16/20 05:39 07/16/20 05:40 Microbiology Microbiology Results: Microbiology 07/14/20 16:41 Urine clean catch - Clean Catch Midstream Urine Culture - Final Providencia stuartii 07/14/20 17:00 Blood - Venous Blood Culture - Preliminary No growth after 24 hours. 07/14/20 16:40 Blood - Venous Blood Culture - Preliminary No growth after 24 hours. Assessment and Plan (1) Pneumonia: Status: Acute (2) Acute UTI: Status: Acute (3) Sepsis: Status: Acute (4) Alzheimer disease: Status: Acute Assessment and Plan: 84 y/o male with an extended PMHX who presented from [facility] due to worsening mental status. Sepsis Likely secondary to pneumonia Not requiring oxygen supplement Continue ceftriaxone and doxycycline Negative respiratory panel pending final blood cultures Pending ID evaluation UTI Urinalysis showing infection Urine culture growing Providencia Continue ceftriaxone Hyperkalemia Resolved Potassium of 3.9 Received Kayexalate next [place] to repeat BMP Metabolic acidosis Bicarbonate improved to 22 Continue sodium bicarb orally Monitor BMP Altered mental status Improving Likely secondary to infection continue to monitor and avoid medications that would affect his mental status Gout Continue allopurinol Alzheimer disease continue with escitalopram home dose continue with lithium home dose continue with risperidone home dose BPH Continue Flomax DVT PPX Heparin SC
--- NOTE | 2020-07-16 15:39 | P.CNID_ITS ---
History of Present Illness Data of Consult Service Date: 07/16/20 Requesting physician: Edda Hernandez Primary Care Provider: Unknown Physician HPI Reason for consult: pneumonia,?urine infection He presents to hospital with myalgias as well as fatigue He is COVID negative CXR RLL infiltrate There is no mention made of aspiration when feeding Review of Systems Review of Systems: Yes Unobtainable due to mental status PMFSH Past Medical History Medical History Alzheimer disease Chronic pain COPD (chronic obstructive pulmonary disease) COVID-19 CVA (cerebral vascular accident) Dysphagia GERD (gastroesophageal reflux disease) Gout Hypokalemia Hypothyroid Pneumonia Functional capacity: independent ambulation Social History Social History Household Members: None Housing: Skilled Nursing Alcohol intake: never Smoking Status: Never smoker Use of substances other than those prescribed or required for medical reasons: Unable to respond Currently Displaying Signs/Symptoms of Drug Intoxication Withdrawal: No Advance Directives: No Advance Directives Information Provided: No Do you have thoughts of harming others: None Do you have a plan to hurt others: No Plan service: No Current occupational status: disabled Meds Allergies Allergy/AdvReac Type Severity Reaction Status Date / Time No Known Allergies Allergy Verified 07/14/20 14:30 [No Known Allergies*] Home Medications Medication Instructions Recorded Confirmed Type allopurinol 100 mg PO DAILY 07/14/20 07/15/20 History amlodipine 7.5 mg PO DAILY 07/14/20 07/15/20 History artificial tears solution 1 drp OPHTHALMIC (EYE) Q8-10H PRN 07/14/20 07/15/20 History atorvastatin 40 mg PO DAILY 07/14/20 07/14/20 History cyanocobalamin (vitamin B-12) 1 ml IM ONCE 07/14/20 07/15/20 History escitalopram oxalate 5 mg PO DAILY 07/14/20 07/15/20 History famotidine 20 mg PO BID 07/14/20 07/15/20 History levothyroxine 88 mcg PO [id number] 07/14/20 07/15/20 History lithium carbonate 300 mg PO BID 07/14/20 07/15/20 History potassium chloride 20 meq PO DAILY 07/14/20 07/14/20 History quetiapine 100 mg PO TID 07/14/20 07/14/20 History risperidone 1 mg PO BEDTIME 07/14/20 07/15/20 History tamsulosin 0.8 mg PO DAILY 07/14/20 07/14/20 History topiramate 25 mg PO BID 07/14/20 07/15/20 History umeclidinium [Incruse Ellipta] 1 inh INHALATION DAILY 07/14/20 07/14/20 History sennosides [senna] 8.6 mg PO DAILY PRN 07/15/20 07/15/20 History Physical Exam Vital Signs: Vital Signs: Last Vital Signs Temp 97.5 F 07/16/20 15:10 Pulse 62 07/16/20 15:10 Resp 19 07/16/20 15:10 BP 159/70 H 07/16/20 15:10 Pulse Ox 96 07/16/20 15:10 Body Mass Index 29.8 Const: General: cooperative HENMT: Head: Yes normal to inspection Eyes: General: appearance normal, both eyes and all related structures Resp: Effort & Inspection: normal respiratory effort Cardio: Rate: regular rate Rhythm: regular rhythm GI: Palpation (GI): Soft to palpation and nontender Back/Spine/Pelvis: Cervical Spine: normal cervical lordosis Skin: General skin exam: no rashes or lesions noted Extrem: General: Yes normal to inspection Assessment and Plan (1) Pneumonia: Qualifiers: Laterality: right Lung location: lower lobe of lung Pneumonia type: due to unspecified organism Qualified Code(s): J18.9 - Pneumonia, unspecified organism Problem details: probable aspiration there is concern over gram negative or anerobes there may be resistant organisms ,likes in [facility] Status: Acute Switch to Doxycycline and Zosyn cover possible resistant organisms Probable 5-7 days antibiotics Results Labs CBC & Chem 7: 07/16/20 05:39 07/16/20 05:40 Labs: Short CBC 07/16/20 Range/Units 05:39 WBC 15.7 H (4.8-10.8) X10*3/uL Hgb 11.8 L (14.0-18.0) g/dl Hct 37.8 L (42-52) % Plt Count 361 (160-400) X10*3/uL BMP 07/16/20 05:40 Sodium 142 Potassium 3.9 D Chloride 114 H Carbon Dioxide 22 BUN 25 H Creatinine 0.83 Calcium 8.2 L Microbiology Microbiology Results: Microbiology 07/14/20 16:41 Urine clean catch - Clean Catch Midstream Urine Culture - Final Providencia stuartii 07/14/20 17:00 Blood - Venous Blood Culture - Preliminary No growth after 24 hours. 07/14/20 16:40 Blood - Venous Blood Culture - Preliminary No growth after 24 hours.
--- NOTE | 2020-07-16 19:26 | PC.NURSE ---
1600 dose of 3.375gm Zosyn not given due to no IV access. 3 nurses attempted and failed to gain IV access. Oncoming nurse made aware.
[2020-07-16] MEDS: risperiDONE 1 MG TABLET PO (21:11)
--- NOTE | 2020-07-16 22:30 | PC.NURSE ---
P-UNABLE TO GET IV ACCESS.5 NURSES ATTEMPTED. I-DR.PEREZ CAMACHO NOTIFIED.OK TO LEAVE OUT FOR NOW.ATTEMPT IN AM
[2020-07-17 04:00] VITALS: PULSE 90; RESP 16; TEMP 36.2; O2SAT 93
[2020-07-17] MEDS: Heparin Sodium,Porcine 5,000 UNIT/ML VIAL 5000 UNIT SUBCUT (05:10)
[2020-07-17] MEDS: Levothyroxine Sodium 88 MCG TABLET PO (07:13)
[2020-07-17 07:52] VITALS: BP 160/82; PULSE 80; RESP 18; TEMP 36.8; O2SAT 97
[2020-07-17] MEDS: amLODIPine Besylate 5 MG TABLET 7.5 MG PO (07:55)
[2020-07-17] MEDS: Tamsulosin HCL 0.4 MG CAPSULE 0.8 MG PO (07:56)
[2020-07-17] MEDS: Sodium Bicarbonate 650 MG TABLET PO (07:56)
[2020-07-17] MEDS: Lithium Carbonate 300 MG CAPSULE PO (07:57)
[2020-07-17] MEDS: Topiramate 25 MG TABLET PO (07:57)
[2020-07-17] MEDS: Famotidine 20 MG TABLET PO (07:57)
[2020-07-17] MEDS: allopurinoL 100 MG TABLET PO (07:57)
[2020-07-17] MEDS: QUEtiapine Fumarate 100 MG TABLET PO (07:57)
[2020-07-17] MEDS: Atorvastatin Calcium 40 MG TABLET PO (07:57)
[2020-07-17] MEDS: Escitalopram Oxalate 5 MG TABLET PO (07:57)
[2020-07-17 08:43] LABS: Anion Gap 14 (12-20); Blood Urea Nitrogen 19 mg/dL (9-16); Calcium 7.9 mg/dL (8.4-10.2); Carbon Dioxide 16 mmol/L (22-29); Chloride 113 mmol/L (96-108); Creatinine Clr Calc Pharmacy 56.9; Estimated Glomerular Filt Rate > 60; Glucose Random 94 mg/dL (60-115); Potassium 4.2 mmol/l (3.3-5.1); Sodium 139 mmol/L (135-145)
[2020-07-17 10:43] LABS: Hematocrit 40.4 % (42-52); Hemoglobin 12.6 g/dl (14.0-18.0); Mean Corpuscular HGB Conc 31.2 g/dl (31.0-36.0); Mean Corpuscular Hemoglobin 27.3 pg (27.0-33.0); Mean Corpuscular Volume 87.6 fL (80-98); Mean Platelet Volume 11.7 fL (9.4-12.4); Platelet Count 377 X10*3/uL (160-400); Red Blood Count 4.61 X10*6/uL (4.60-5.80); White Blood Count 14.7 X10*3/uL (4.8-10.8)
[2020-07-17 11:18] VITALS: BP 162/76; PULSE 67; RESP 18; TEMP 36.4; O2SAT 95
--- NOTE | 2020-07-17 11:45 | MHC.CM.PN ---
Patient has been medically cleared for dc to SNF. Patient will return to [facility] today at 1 PM, via [facility]. Last IMM addressed yesterday and a detailed message for Guardian/Jonathan Urbina has been left for Jonathan, informing him of the dc plan.
--- NOTE | 2020-07-17 12:39 | PM.DS ---
DS: Providers Provider Date of admission: 07/14/20 20:39 Primary care physician: Unknown Physician Consults: 07/14/20 20:39 Consult to Infectious Diseases Routine Consulting Provider: Allison Baca Reason for consultation: UTI/PNA Sepsis Has provider been notified: No DS: Diagnosis Discharge Diagnosis (1) Pneumonia: Status: Acute Problem details: p DS: Medications Discharge Medications Home Medications: Home Medications Medication Instructions Recorded Confirmed Incruse Ellipta 1 inh INHALATION DAILY 07/14/20 07/14/20 allopurinol 100 mg PO DAILY 07/14/20 07/15/20 amlodipine 7.5 mg PO DAILY 07/14/20 07/15/20 artificial tears solution 1 drp OPHTHALMIC (EYE) Q8-10H PRN 07/14/20 07/15/20 atorvastatin 40 mg PO DAILY 07/14/20 07/14/20 cyanocobalamin (vitamin B-12) 1 ml IM ONCE 07/14/20 07/15/20 escitalopram oxalate 5 mg PO DAILY 07/14/20 07/15/20 famotidine 20 mg PO BID 07/14/20 07/15/20 levothyroxine 88 mcg PO SUTUWETHFRSA 07/14/20 07/15/20 lithium carbonate 300 mg PO BID 07/14/20 07/15/20 potassium chloride 20 meq PO DAILY 07/14/20 07/14/20 quetiapine 100 mg PO TID 07/14/20 07/14/20 risperidone 1 mg PO BEDTIME 07/14/20 07/15/20 tamsulosin 0.8 mg PO DAILY 07/14/20 07/14/20 topiramate 25 mg PO BID 07/14/20 07/15/20 sennosides [senna] 8.6 mg PO DAILY PRN 07/15/20 07/15/20 Previous Rx's Medication Instructions Recorded cefuroxime axetil 500 mg PO Q12H 7 Days #14 tab 07/17/20 doxycycline hyclate 100 mg PO BID 7 Days #14 tab 07/17/20 DS: Summary Hospital Course Hospital Course: HPI 84 y/o male with an extended PMHX who [facility] due to worsening mental status. The hx is unclear and cannot be obtained from patient given underlying severe dementia, but per [facility] patient was noted for the past several days to not be himself . There is no documented evidence of fever. Patient has a hx of being covid positive in the past but today upon tested was found to be negative. On presentation to the ED patient meets sepsis criteria, WBC found to be 16.8, CXR showing RLL infiltrates, UA positive for UTI and CT head negative for any acute intracranial pathology. Patient was given one dose of Cefepime and Vanco and decision for admission was given. Patient seen and examined at the bedside, laying down in bed in no acute distress. saturating well on nasal cannula. Per ED patient was saturating 86% on room air upon presentation. ROS unable to be obtained given severe dementia. Physical exam showing no acute findings. mentals status appears to be patient's baseline, answering to verbal stimuli but not following commands. PMHx: of Alzheimer's dementia, CVA, TBI, dysphagia, DM type II, CAD, HTN, COPD, anemia, hypothyroidism, gout, and depression Hospital course 84-year-old male admitted with sepsis secondary to pneumonia and UTI, patient was started on IV antibiotic and supportive management , blood culture remains negative, urine culture grew providentia strutii , patient was weaned down to room air, sepsis resolved, patient was stable discharged back to facility on p.o. Ceftin and doxycycline Time Spent with Patient Time attestation: Total time spent providing and/or coordinating discharge services: Physical Exam Vital Signs: Vital Signs: Last Vital Signs Temp 97.6 F 07/17/20 11:18 Pulse 67 07/17/20 11:18 Resp 18 07/17/20 11:18 BP 162/76 H 07/17/20 11:18 Pulse Ox 95 07/17/20 11:18 Body Mass Index 29.8 DS: Data Data Completed and Pending Labs on day of discharge: 07/14/20 Breakfast NPO Diet 07/14/20 14:34 ECG 12 lead EKG Stat EKG Documentation DIRECTED 07/14/20 14:35 CT head/brain wo con Stat 07/14/20 14:36 XR chest 1V Stat 07/14/20 14:45 0.9 % Sodium Chloride [Ns] 1,000 ml IVCONT 999 mls/hr 07/14/20 15:04 Albuterol Sulfate (0.083%) [Ventolin (0.083%)] 10 mg INHALE ONCE ONE methylPREDNISolone Sod Succ/PF [SOLU-MedroL] 125 mg IVPUSH ONCE ONE 07/14/20 15:15 Consult Rx Perform Med Rec 1 each MISCELLANE ONCE PRN 07/14/20 15:49 cefEPime HCl [Maxipime] 2 gm 0.9 % Sodium Chloride [Ns] 50 ml IV ONCE 07/14/20 16:41 Basic Metabolic Panel Stat Lactic Acid Stat Liver Panel Stat Magnesium Stat Urine Culture Routine 07/14/20 17:00 Prothrombin Time INR Stat Resp pnl result confirmation Stat Respiratory Panel Stat 07/14/20 17:15 Complete Blood Count Auto Diff Stat 07/14/20 17:33 cefEPime HCl [Maxipime] 2 gm IV .STK-MED ONE 07/14/20 19:18 COVID-19 ID NOW (Lorenzo) Stat 07/14/20 19:54 Consult Rx Perform Med Rec 1 each MISCELLANE ONCE PRN 07/14/20 20:31 Transfer Order Routine 07/14/20 20:39 Intake and Output QSHIFTE 07/14/20 23:36 Troponin-I High Sensitivity Stat 07/15/20 06:00 cefTRIAXone sodium [Rocephin] 1 gm 0.9 % Sodium Chloride [Ns] 50 ml IV Q24H 07/15/20 06:26 Basic Metabolic Panel Routine 07/15/20 06:32 Doxycycline Hyclate [Vibramycin] 100 mg IV .STK-MED ONE 07/15/20 06:33 cefTRIAXone sodium [Rocephin] 1 gm .ROUTE .STK-MED ONE 07/15/20 07:30 Doxycycline Hyclate [Vibramycin] 100 mg IV .STK-MED ONE 07/15/20 07:33 Sodium Polystyrene Sulfon/Sorb [Kayexalate] 30 gm PO ONCE ONE 07/15/20 08:04 Complete Blood Count Auto Diff Stat 07/15/20 09:00 amLODIPine Besylate [Norvasc] 2.5 mg PO DAILY amLODIPine Besylate [Norvasc] 2.5 mg PO DAILY amLODIPine Besylate [Norvasc] 5 mg PO DAILY 07/15/20 21:00 Sodium Bicarbonate [Neut] 650 mg PO BID 07/16/20 04:57 cefTRIAXone sodium [Rocephin] 1 gm .ROUTE .STK-MED ONE 07/16/20 04:58 Doxycycline Hyclate [Vibramycin] 100 mg IV .STK-MED ONE 07/16/20 05:39 Complete Blood Count no Diff DAILY@0600 07/16/20 05:40 Basic Metabolic Panel DAILY@0600 07/17/20 07:04 Basic Metabolic Panel DAILY@0600 07/17/20 08:37 CBC NO DIFF [Complete Blood Count no Diff] Urgent Laboratory Last Values WBC 14.7 X10*3/uL (4.8-10.8) H 07/17/20 08:37 RBC 4.61 X10*6/uL (4.60-5.80) 07/17/20 08:37 Hgb 12.6 g/dl (14.0-18.0) L 07/17/20 08:37 Hct 40.4 % (42-52) L 07/17/20 08:37 MCV 87.6 fL (80-98) 07/17/20 08:37 MCH 27.3 pg (27.0-33.0) 07/17/20 08:37 MCHC 31.2 g/dl (31.0-36.0) 07/17/20 08:37 RDW 16.0 % (11.0-16.0) 07/17/20 08:37 Plt Count 377 X10*3/uL (160-400) 07/17/20 08:37 MPV 11.7 fL (9.4-12.4) 07/17/20 08:37 Immature Gran % (Auto) 0.5 % (0.0-0.4) H 07/15/20 08:04 Neut % (Auto) 87.0 % (45-73) H 07/15/20 08:04 Lymph % (Auto) 9.8 % (20-40) L 07/15/20 08:04 [place] % (Auto) 2.5 % (2-11) 07/15/20 08:04 Eos % (Auto) 0.0 % (0-4) 07/15/20 08:04 Baso % (Auto) 0.2 % (0-2) 07/15/20 08:04 Lymph # (Auto) 1.1 X10*3/uL (1.2-4.9) L 07/15/20 08:04 [place] # (Auto) 0.3 X10*3/uL (0.1-1.2) 07/15/20 08:04 Eos # (Auto) 0.0 X10*3/uL (0.0-0.4) 07/15/20 08:04 Baso # (Auto) 0.0 X10*3/uL (0.0-0.2) 07/15/20 08:04 Abs Immat Gran (auto) 0.06 X10*3/uL (0.00-0.03) H 07/15/20 08:04 Absolute Neuts (auto) 9.5 X10*3/uL (2.0-8.3) H 07/15/20 08:04 Absolute Nucleated RBC 0.000 X10*3/uL (0.0-0.012) 07/17/20 08:37 Nucleated RBC % (auto) 0.0 /100WBC (0.0-0.2) 07/17/20 08:37 PT 15.2 SEC (10.8-13.0) H 07/14/20 17:00 INR 1.3 (0.9-1.1) H 07/14/20 17:00 Sodium 139 mmol/L (135-145) 07/17/20 07:04 Potassium 4.2 mmol/l (3.3-5.1) 07/17/20 07:04 Chloride 113 mmol/L (96-108) H 07/17/20 07:04 Carbon Dioxide 16 mmol/L (22-29) L 07/17/20 07:04 Anion Gap 14 (12-20) 07/17/20 07:04 BUN 19 mg/dL (9-16) H 07/17/20 07:04 Creatinine 0.90 mg/dL (0.5-1.4) 07/17/20 07:04 Estim Creat Clear Calc 56.9 07/17/20 07:04 Estimated GFR > 60 07/17/20 07:04 Random Glucose 94 mg/dL (60-115) 07/17/20 07:04 Lactic Acid 1.6 mmol/L (0.5-2.0) 07/14/20 16:41 Calcium 7.9 mg/dL (8.4-10.2) L 07/17/20 07:04 Magnesium 2.2 mg/dL (1.6-2.6) 07/14/20 16:41 Total Bilirubin 0.6 mg/dL (0.0-1.0) 07/14/20 16:41 Direct Bilirubin 0.4 mg/dL (0.0-0.5) 07/14/20 16:41 AST 30 U/L (5-37) 07/14/20 16:41 ALT 28 U/L (0-40) 07/14/20 16:41 Alkaline Phosphatase 133 U/L (39-117) H 07/14/20 16:41 Troponin I High Sens < 3.5 ng/L (<3.5-35.0) 07/14/20 23:36 Total Protein 6.6 g/dL (6.5-8.0) 07/14/20 16:41 Albumin 2.9 g/dL (3.5-5.0) L 07/14/20 16:41 Urine Color YELLOW 07/14/20 16:41 Urine Appearance HAZY 07/14/20 16:41 Urine pH 7.5 (5.0-8.0) 07/14/20 16:41 Ur Specific [place] 1.010 (1.005-1.025) 07/14/20 16:41 Urine Protein NEG MG/DL (NEG-TRACE) 07/14/20 16:41 Urine Glucose (UA) NEG MG/DL (NEG) 07/14/20 16:41 Urine Ketones NEG MG/DL (NEG) 07/14/20 16:41 Urine Blood TRACE (NEG) 07/14/20 16:41 Urine Nitrite POS (NEG) H 07/14/20 16:41 Ur Leukocyte Esterase 3+ (NEG) H 07/14/20 16:41 Urine RBC 1-4 /HPF (0) 07/14/20 16:41 Urine WBC 50-75 /HPF (0-4) H 07/14/20 16:41 Ur Squamous Epith Cells TRACE /LPF 07/14/20 16:41 Urine Bacteria 3+ /LPF 07/14/20 16:41 Respiratory Panel Portillo See Note 07/14/20 17:00 Adenovirus (Rapid PCR) Not Detected (Not Detect.) 07/14/20 17:00 B.pert (TEM-PCR) Not Detected (Not Detect.) 07/14/20 17:00 B.parapertussis DNA PCR Not Detected (Not Detect.) 07/14/20 17:00 C. pneumoniae DNA (PCR) Not Detected (Not Detect.) 07/14/20 17:00 Coronavirus OC43 (PCR) Not Detected (Not Detect.) 07/14/20 17:00 Coronavirus HKU1 (PCR) Not Detected (Not Detect.) 07/14/20 17:00 Coronavirus 229E (PCR) Not Detected (Not Detect.) 07/14/20 17:00 COVID-19 ([facility]) Negative (Negative) 07/14/20 19:18 COVID-19 Clin Com See Note 07/14/20 19:18 Coronavirus NL63 (PCR) Not Detected (Not Detect.) 07/14/20 17:00 Human Metapneumovir PCR Not Detected (Not Detect.) 07/14/20 17:00 Influenza A (RT-PCR) Not Detected (Not Detect.) 07/14/20 17:00 Influenza B (RT-PCR) Not Detected (Not Detect.) 07/14/20 17:00 M. pneumoniae (PCR) Not Detected (Not Detect.) 07/14/20 17:00 Parainfluenza 1 (PCR) Not Detected (Not Detect.) 07/14/20 17:00 Parainfluenza 2 (PCR) Not Detected (Not Detect.) 07/14/20 17:00 Parainfluenza 3 (PCR) Not Detected (Not Detect.) 07/14/20 17:00 Parainfluenza 4 (PCR) Not Detected (Not Detect.) 07/14/20 17:00 RSV (PCR) Not Detected (Not Detect.) 07/14/20 17:00 Entero/Rhino (PCR) Detected (Not Detect.) A 07/14/20 17:00 SARS-CoV-2 RNA (RT-PCR) Not Detected (Not Detect.) 07/14/20 17:00 Preliminary micro results at discharge 07/14/20 17:00 Blood Culture - Preliminary Blood - Venous No growth after 48 hours. 07/14/20 16:40 Blood Culture - Preliminary Blood - Venous No growth after 48 hours. Discharge Plan Discharge Anticipated Discharge Date/Time: 07/17/20 11:19 Patient Disposition: [facility] Referrals: [facility] [Outside] Physician,Unknown [Primary Care Provider] - Discharge Medications: New doxycycline hyclate 100 mg tablet 100 mg PO BID 7 Days Qty: 14 RF: 0 cefuroxime axetil 500 mg tablet 500 mg PO Q12H 7 Days Qty: 14 RF: 0 sodium bicarbonate 650 mg Tablet 650 mg PO TID Qty: 30 RF: 0 Continued allopurinol 100 mg tablet 100 mg PO DAILY RF: 0 atorvastatin 40 mg tablet 40 mg PO DAILY RF: 0 amlodipine 2.5 mg tablet 7.5 mg PO DAILY RF: 0 artificial tears solution 1 drp ophthalmic (eye) Q8-10H PRN (Reason: Dry Eye(S)) RF: 0 famotidine 20 mg tablet 20 mg PO BID RF: 0 escitalopram oxalate 5 mg tablet 5 mg PO DAILY RF: 0 Incruse Ellipta 62.5 mcg/actuation blister with device 1 inh inhalation DAILY RF: 0 cyanocobalamin (vitamin B-12) 1,000 mcg/ml 1 ml IM ONCE RF: 0 levothyroxine 88 mcg tablet 88 mcg PO SUTUWETHFRSA RF: 0 potassium chloride 10 mEq capsule, extended release 20 meq PO DAILY RF: 0 topiramate 25 mg tablet 25 mg PO BID RF: 0 quetiapine 100 mg tablet 100 mg PO TID RF: 0 tamsulosin 0.4 mg capsule 0.8 mg PO DAILY RF: 0 lithium carbonate 300 mg capsule 300 mg PO BID RF: 0 risperidone 1 mg tablet 1 mg PO BEDTIME RF: 0 sennosides [senna] 8.6 mg Tablet 8.6 mg PO DAILY PRN (Reason: Constipation) RF: 0 Discharge Orders: Discharge Order (Routine); Ordered 07/17/20 Ordered By: Germain Tilley Diet: advance to usual diet Activity on Discharge: As tolerated Discharge Date/Time: 07/17/20 15:36 Visit Report Forms: Patient Portal Discharge page Care Plan Goals: treat pneumonia Health Concerns: pneumonia Plan of Treatment: p.o. antibiotic
--- NOTE | 2020-07-17 13:22 | MHC.INPTTRAN ---
Complete care. takes meds in applesauce. cont with thickened liq and ground diet. VSS. thanks.
[2020-07-17 13:30] LABS: COVID-19 Test Negative (Negative)
== END 2020-07-17 15:36 | disposition skilled nursing facility (03) | DRG 871 ==
LOC: HO.ED 07-15 07:12 → HO.IMC 07-15 13:09
PROVIDERS: Emergency Medicine; Nurse Practitioner Family; Physician Assistant Medical; Student in an Organized Health Care Education/Training Program; Admitting Provider Internal Medicine; Emergency Provider Emergency Medicine; Visit Provider Internal Medicine
DX: A41.9 Sepsis, unspecified organism (principal); J18.9 Pneumonia, unspecified organism; J44.1 Chronic obstructive pulmonary disease with (acute) exacerbation; N39.0 Urinary tract infection, site not specified; E87.2 Acidosis; G30.9 Alzheimer's disease, unspecified; E11.9 Type 2 diabetes mellitus without complications; I10 Essential (primary) hypertension; I25.10 Atherosclerotic heart disease of native coronary artery without angina pectoris; E78.5 Hyperlipidemia, unspecified; G40.909 Epilepsy, unspecified, not intractable, without status epilepticus; E87.5 Hyperkalemia; N40.0 Benign prostatic hyperplasia without lower urinary tract symptoms; M10.9 Gout, unspecified; F02.80 Dementia in other diseases classified elsewhere, unspecified severity, without behavioral disturbance, psychotic disturbance, mood disturbance, and anxiety; E03.9 Hypothyroidism, unspecified; K21.9 Gastro-esophageal reflux disease without esophagitis; Z87.820 Personal history of traumatic brain injury; Z79.890 Hormone replacement therapy; Z79.899 Other long term (current) drug therapy
CPT/HCPCS: 36415; 70450; 71045; 80048; 80076; 81001; 83605; 83735; 84484; 85025; 85027; 85610; 87040; 87086; 87088; 87186; 87633; 87635; 92507; 92610; 93005; 94640; 94644; 96365; 96375; 99285; 99291; J0692; J0696; J2930

== ENCOUNTER 2020-08-12 16:10 | Inpatient (IN) | payer MEDICARE, MEDICAID, SELFPAY ==
[2020-08-12 16:28] VITALS: BP 126/50; BP 126/84; PULSE 65; PULSE 72; RESP 18; TEMP 37.4; O2SAT 90; O2SAT 93; BMI 27.3
--- NOTE | 2020-08-12 17:21 | ED_ITS ---
HPI - Altered Mental Status General Chief Complaint: Altered Mental Status Stated Complaint: AMS PER SNF Time Seen by Provider: 08/12/20 17:21 Source: EMS Mode of arrival: EMS Limitations: altered mental status History of Present Illness HPI narrative: 84-year-old male [facility] presented by ambulance for change mental status noted by the staff, patient with history of advanced dementia, as documented by EMS patient at his baseline. Phone call to a [facility] to get more information about the patient. Information was obtained from [facility], patient's baseline is mostly bed bound but able to get out of bed with lens assistant, patient usually is awake and alert, able to feed himself, patient recently was treated for urosepsis finish course of antibiotic about 2 weeks ago. No reported fall or head injury. Related Data Home Medications Medication Instructions Recorded Confirmed Incruse Ellipta 1 inh INHALATION DAILY 07/14/20 08/12/20 allopurinol 100 mg PO DAILY 07/14/20 08/12/20 amlodipine 7.5 mg PO DAILY 07/14/20 08/12/20 artificial tears solution 1 drp OPHTHALMIC (EYE) Q8-10H PRN 07/14/20 08/12/20 atorvastatin 40 mg PO DAILY 07/14/20 08/12/20 cyanocobalamin (vitamin B-12) 1 ml IM ONCE 07/14/20 08/12/20 escitalopram oxalate 5 mg PO DAILY 07/14/20 08/12/20 famotidine 20 mg PO BID 07/14/20 08/12/20 levothyroxine 88 mcg PO SUTUWETHFRSA 07/14/20 08/12/20 lithium carbonate 300 mg PO BID 07/14/20 08/12/20 potassium chloride 20 meq PO DAILY 07/14/20 08/12/20 quetiapine 100 mg PO TID 07/14/20 08/12/20 risperidone 1 mg PO BEDTIME 07/14/20 08/12/20 tamsulosin 0.8 mg PO DAILY 07/14/20 08/12/20 topiramate 25 mg PO BID 07/14/20 08/12/20 sennosides [senna] 8.6 mg PO DAILY PRN 07/15/20 08/12/20 Previous Rx's Medication Instructions Recorded sodium bicarbonate 650 mg PO TID #30 tab 12/16/20 Allergies Allergy/AdvReac Type Severity Reaction Status Date / Time No Known Allergies Allergy Verified 08/12/20 16:36 [No Known Allergies*] Review of Systems Review of Systems: Yes Unobtainable due to mental condition FOR[facility]LY [facility] Past Medical History Medical History Alzheimer disease Chronic pain COPD (chronic obstructive pulmonary disease) COVID-19 CVA (cerebral vascular accident) Dysphagia GERD (gastroesophageal reflux disease) Gout Hypokalemia Hypothyroid Pneumonia Social History Social History Household Members: None Housing: Jail Alcohol intake: never Smoking Status: Never smoker Advance Directives: No Advance Directives Information Provided: Yes service: No Current occupational status: disabled Physical Exam Vital Signs: Vital Signs: Last Vital Signs Temp 98.8 F 08/12/20 20:29 Pulse 77 08/12/20 20:29 Resp 21 H 08/12/20 20:29 BP 141/47 H 08/12/20 20:29 Pulse Ox 95 08/12/20 20:29 Body Mass Index 27.3 Vital signs have been reviewed as normal and appeared to be correct. Blood pressure normal. Heart rate normal. Respiration rate normal. Temperature normal. Oxygen saturation normal. Appearance: No acute distress. Head: Normal external exam. Normocephalic. Atraumatic. No Greenberg signs noted. No raccoon eyes noted Eyes: PERRLA. EOMI. Conjunctiva and sclera normal. Eyelids normal. ENT: EAC normal. TM's Normal. Pharynx normal. Uvula midline. Moist mucous membranes. No trismus noted. No drooling noted. No muffled voice noted. Neck: Normal inspection. Neck supple. FROM. No adenopathy. Thyroid Normal. No meningeal signs. No neck mass noted. CVS: Normal heart rate and rhythm. Heart sound normal. No murmurs noted. Pulses normal throughout. Respiratory: No respiratory distress. Painless inspiration. Breath sounds normal. No wheezes/rales/rhonchi noted. Chest nontender. No accessory muscle usage noted or decreased air movement noted. Abdomen: Soft and nontender. Bowel sounds normal in all 4 quadrants. No distention noted. No organomegaly noted. No visible injury noted. Back: No CVA tenderness. Full range of motion noted. Skin: Skin warm and dry. Normal skin color. Normal skin turgor. No rashes/lesions/lacerations noted. Extremities: No lower extremity edema. Extremities exhibit normal range of motion. Extremities nontender. Neuro: No motor deficit. No sensory deficit. Course Course Course Narrative: Assessment and plan. 84-year-old male [facility] [place] [id number]. Do not meet criteria for SIRS. Patient received fluid/antibiotic lactic acid is 1.4. Mild hyperkalemia with no EKG changes. Will admit the patient for IV antibiotic and fluid. MDM - Altered Mental Status Lab Data Result diagrams: 08/12/20 18:12 08/12/20 18:12 Labs: Lab Results 08/12/20 08/12/20 08/12/20 Range/Units 18:12 18:12 18:12 WBC 20.4 H (4.8-10.8) X10*3/uL RBC 4.01 L (4.60-5.80) X10*6/uL Hgb 10.6 L (14.0-18.0) g/dl Hct 34.9 L (42-52) % MCV 87.0 (80-98) fL MCH 26.4 L (27.0-33.0) pg MCHC 30.4 L (31.0-36.0) g/dl RDW 16.1 H (11.0-16.0) % Plt Count 524 H D (160-400) X10*3/uL MPV 11.3 (9.4-12.4) fL Immature Gran % (Auto) 1.1 H (0.0-0.4) % Neut % (Auto) 73.4 H (45-73) % Lymph % (Auto) 11.1 L (20-40) % [place] % (Auto) 12.7 H (2-11) % Eos % (Auto) 1.5 (0-4) % Baso % (Auto) 0.2 (0-2) % Lymph # (Auto) 2.3 (1.2-4.9) X10*3/uL [place] # (Auto) 2.6 H (0.1-1.2) X10*3/uL Eos # (Auto) 0.3 (0.0-0.4) X10*3/uL Baso # (Auto) 0.0 (0.0-0.2) X10*3/uL Abs Immat Gran (auto) 0.22 H (0.00-0.03) X10*3/uL Absolute Neuts (auto) 14.9 H (2.0-8.3) X10*3/uL Absolute Nucleated RBC 0.000 (0.0-0.012) X10*3/uL Nucleated RBC % (auto) 0.0 (0.0-0.2) /100WBC Smear Tech's Comments VERIFIED Sodium 145 (135-145) mmol/L Potassium 5.4 H D (3.3-5.1) mmol/l Chloride 115 H (96-108) mmol/L Carbon Dioxide 25 (22-29) mmol/L Anion Gap 10 L (12-20) BUN 26 H (9-16) mg/dL Creatinine 1.35 (0.5-1.4) mg/dL Estim Creat Clear Calc 40.5 Estimated GFR 50 Random Glucose 102 (60-115) mg/dL Lactic Acid 1.4 (0.5-2.0) mmol/L Calcium 8.2 L (8.4-10.2) mg/dL Ferritin 313 H (20-250) ng/mL Total Bilirubin 0.4 (0.0-1.0) mg/dL Direct Bilirubin 0.2 (0.0-0.5) mg/dL AST 48 H D (5-37) U/L ALT 27 (0-40) U/L Alkaline Phosphatase 125 H (39-117) U/L B-Natriuretic Peptide (<100) pg/mL Total Protein 7.3 (6.5-8.0) g/dL Albumin 2.2 L D (3.5-5.0) g/dL Lipase 14 (8-78) U/L Vitamin B12 (200-900) pg/mL Folate (> or = 4.0) ng/mL Urine Color Urine Appearance Urine pH (5.0-8.0) Ur Specific [place] (1.005-1.025) Urine Protein (NEG-TRACE) MG/DL Urine Glucose (UA) (NEG) MG/DL Urine Ketones (NEG) MG/DL Urine Blood (NEG) Urine Nitrite (NEG) Ur Leukocyte Esterase (NEG) Urine RBC (0) /HPF Urine WBC (0-4) /HPF Ur Squamous Epith Cells /LPF Urine Bacteria /LPF COVID-19 ([facility]) (Negative) COVID-19 Clin Com 08/12/20 08/12/20 08/12/20 Range/Units 18:12 18:12 18:12 WBC (4.8-10.8) X10*3/uL RBC (4.60-5.80) X10*6/uL Hgb (14.0-18.0) g/dl Hct (42-52) % MCV (80-98) fL MCH (27.0-33.0) pg MCHC (31.0-36.0) g/dl RDW (11.0-16.0) % Plt Count (160-400) X10*3/uL MPV (9.4-12.4) fL Immature Gran % (Auto) (0.0-0.4) % Neut % (Auto) (45-73) % Lymph % (Auto) (20-40) % [place] % (Auto) (2-11) % Eos % (Auto) (0-4) % Baso % (Auto) (0-2) % Lymph # (Auto) (1.2-4.9) X10*3/uL [place] # (Auto) (0.1-1.2) X10*3/uL Eos # (Auto) (0.0-0.4) X10*3/uL Baso # (Auto) (0.0-0.2) X10*3/uL Abs Immat Gran (auto) (0.00-0.03) X10*3/uL Absolute Neuts (auto) (2.0-8.3) X10*3/uL Absolute Nucleated RBC (0.0-0.012) X10*3/uL Nucleated RBC % (auto) (0.0-0.2) /100WBC Smear Tech's Comments Sodium (135-145) mmol/L Potassium (3.3-5.1) mmol/l Chloride (96-108) mmol/L Carbon Dioxide (22-29) mmol/L Anion Gap (12-20) BUN (9-16) mg/dL Creatinine (0.5-1.4) mg/dL Estim Creat Clear Calc Estimated GFR Random Glucose (60-115) mg/dL Lactic Acid (0.5-2.0) mmol/L Calcium (8.4-10.2) mg/dL Ferritin (20-250) ng/mL Total Bilirubin (0.0-1.0) mg/dL Direct Bilirubin (0.0-0.5) mg/dL AST (5-37) U/L ALT (0-40) U/L Alkaline Phosphatase (39-117) U/L B-Natriuretic Peptide 118 H (<100) pg/mL Total Protein (6.5-8.0) g/dL Albumin (3.5-5.0) g/dL Lipase (8-78) U/L Vitamin B12 564 (200-900) pg/mL Folate 15.7 (> or = 4.0) ng/mL Urine Color Urine Appearance Urine pH (5.0-8.0) Ur Specific [place] (1.005-1.025) Urine Protein (NEG-TRACE) MG/DL Urine Glucose (UA) (NEG) MG/DL Urine Ketones (NEG) MG/DL Urine Blood (NEG) Urine Nitrite (NEG) Ur Leukocyte Esterase (NEG) Urine RBC (0) /HPF Urine WBC (0-4) /HPF Ur Squamous Epith Cells /LPF Urine Bacteria /LPF COVID-19 ([facility]) Negative (Negative) COVID-19 Clin Com See Note 08/12/20 Range/Units 18:58 WBC (4.8-10.8) X10*3/uL RBC (4.60-5.80) X10*6/uL Hgb (14.0-18.0) g/dl Hct (42-52) % MCV (80-98) fL MCH (27.0-33.0) pg MCHC (31.0-36.0) g/dl RDW (11.0-16.0) % Plt Count (160-400) X10*3/uL MPV (9.4-12.4) fL Immature Gran % (Auto) (0.0-0.4) % Neut % (Auto) (45-73) % Lymph % (Auto) (20-40) % [place] % (Auto) (2-11) % Eos % (Auto) (0-4) % Baso % (Auto) (0-2) % Lymph # (Auto) (1.2-4.9) X10*3/uL [place] # (Auto) (0.1-1.2) X10*3/uL Eos # (Auto) (0.0-0.4) X10*3/uL Baso # (Auto) (0.0-0.2) X10*3/uL Abs Immat Gran (auto) (0.00-0.03) X10*3/uL Absolute Neuts (auto) (2.0-8.3) X10*3/uL Absolute Nucleated RBC (0.0-0.012) X10*3/uL Nucleated RBC % (auto) (0.0-0.2) /100WBC Smear Tech's Comments Sodium (135-145) mmol/L Potassium (3.3-5.1) mmol/l Chloride (96-108) mmol/L Carbon Dioxide (22-29) mmol/L Anion Gap (12-20) BUN (9-16) mg/dL Creatinine (0.5-1.4) mg/dL Estim Creat Clear Calc Estimated GFR Random Glucose (60-115) mg/dL Lactic Acid (0.5-2.0) mmol/L Calcium (8.4-10.2) mg/dL Ferritin (20-250) ng/mL Total Bilirubin (0.0-1.0) mg/dL Direct Bilirubin (0.0-0.5) mg/dL AST (5-37) U/L ALT (0-40) U/L Alkaline Phosphatase (39-117) U/L B-Natriuretic Peptide (<100) pg/mL Total Protein (6.5-8.0) g/dL Albumin (3.5-5.0) g/dL Lipase (8-78) U/L Vitamin B12 (200-900) pg/mL Folate (> or = 4.0) ng/mL Urine Color YELLOW Urine Appearance HAZY Urine pH 7.5 (5.0-8.0) Ur Specific Raymond 1.010 (1.005-1.025) Urine Protein NEG (NEG-TRACE) MG/DL Urine Glucose (UA) NEG (NEG) MG/DL Urine Ketones NEG (NEG) MG/DL Urine Blood 2+ H (NEG) Urine Nitrite NEG (NEG) Ur Leukocyte Esterase 2+ H (NEG) Urine RBC 50-75 H (0) /HPF Urine WBC TNTC H (0-4) /HPF Ur Squamous Epith Cells NONE /LPF Urine Bacteria TRACE /LPF COVID-19 ([facility]) (Negative) COVID-19 Clin Com Imaging Data Left elbow/left forearm/left hand x-rays: Radiologist's impression: No x-ray of the left elbow/left forearm/left hand was obtained. Chest x-ray: Radiologist's impression: Hypoexpanded. There are chronic appearing patchy bilateral airspace changes. Subtle infectious etiology could have this appearance although some of these changes are chronic when compared to the prior study. CT scan - head: Radiologist's impression: Chronic microvascular ischemic changes with no CT evidence of acute intracranial abnormality. ECG Data ECG #1: Interpretation: Normal sinus rhythm, left axis deviation, right bundle branch block, widening QRS. Discharge Plan Discharge Clinical Impression: Acute alteration in mental status, Acute UTI, Acute hyperkalemia Patient Disposition: Admitted as Observation
--- NOTE | 2020-08-12 17:32 | CT_ITS ---
EXAMINATION: CT HEAD WITHOUT CONTRAST CLINICAL INFORMATION: Altered mental status COMPARISON: Head CT 07/14/2020 TECHNIQUE: Contiguous axial imaging was performed from the skull base to vertex without intravenous administration of contrast. This CT examination was performed using dose optimization techniques as appropriate, variously including the following: *Automated exposure control *Adjustment of mA and/or kV according to patient size (this includes techniques or standardized protocols for targeted exams where dose is matched to indication/reason for exam; i.e. extremities or head) *Use of iterative reconstruction technique DLP: 1142 mGy-cm FINDINGS: There is no evidence of acute intracranial hemorrhage or territorial infarction. No abnormal mass effect or midline shift is appreciated. Dewards-white differentiation is well preserved. No extra-axial fluid collections. The ventricular system and cortical sulci are prominent, consistent with age-appropriate volume loss. There are areas of low density in the periventricular and subcortical white matter, most consistent with sequelae of microvascular ischemic change. The osseous structures and soft tissues are normal. There are calcifications of the cavernous internal carotid arteries. The visualized paranasal sinuses and mastoid air cells are well aerated. CT/CT head/brain wo con IMPRESSION: Chronic microvascular ischemic changes with no CT evidence of acute intracranial abnormality.
--- NOTE | 2020-08-12 17:32 | ECG_ITS ---
Test Reason : ALTERED MENTAL Blood Pressure : / mmHG Vent. Rate : 072 BPM Atrial Rate : 072 BPM P-R Int : 194 ms QRS Dur : 146 ms QT Int : 468 ms P-R-T Axes : 059 -39 049 degrees QTc Int : 512 ms Normal sinus rhythm Left axis deviation Right bundle branch block Abnormal ECG When compared with ECG of 14-JUL-2020 17:51, No significant change was found Referred By: Hiwot Castillo Electronically Signed By:JAVIER ARENAS MD
--- NOTE | 2020-08-12 17:32 | XR_ITS ---
EXAMINATION: PORTABLE CHEST 1 VIEW CLINICAL INFORMATION: Altered mental status. COMPARISON: 07/14/2020. TECHNIQUE: Portable frontal view of the chest was obtained. FINDINGS: Patient is rotated slightly to the right. Lungs are hypoexpanded. Patchy bilateral airspace disease is again seen bilaterally. Atypical or viral infectious etiology could have this appearance although some these markings are chronic in nature when compared to the prior study. No significant effusion edema or pneumothorax. Cardiac silhouette is within normal limits for size with a tortuous aorta. Degenerative changes in the shoulders. XR/XR chest 1V IMPRESSION: Hypoexpanded. There are chronic appearing patchy bilateral airspace changes. Subtle infectious etiology could have this appearance although some of these changes are chronic when compared to the prior study.
[2020-08-12 18:00] VITALS: BP 90/33; PULSE 72; RESP 18; TEMP 36.9; O2SAT 93
[2020-08-12 18:25] LABS: Basophils Percent Auto 0.2 % (0-2); Eosinophils Absolute Auto 0.3 X10*3/uL (0.0-0.4); Eosinophils Percent Auto 1.5 % (0-4); Hematocrit 34.9 % (42-52); Hemoglobin 10.6 g/dl (14.0-18.0); Imm Gran Abs Auto 0.22 X10*3/uL (0.00-0.03); Imm Gran Pct Auto 1.1 % (0.0-0.4); Lymphocytes Absolute Auto 2.3 X10*3/uL (1.2-4.9); Lymphocytes Percent Auto 11.1 % (20-40); MANUAL DIFF FLAG SCAN; Mean Corpuscular HGB Conc 30.4 g/dl (31.0-36.0); Mean Corpuscular Hemoglobin 26.4 pg (27.0-33.0); Mean Platelet Volume 11.3 fL (9.4-12.4); Monocytes Absolute Auto 2.6 X10*3/uL (0.1-1.2); Monocytes Percent Auto 12.7 % (2-11); Neutrophils Absolute Auto 14.9 X10*3/uL (2.0-8.3); Neutrophils Percent Auto 73.4 % (45-73); Platelet Count 524 X10*3/uL (160-400); Red Blood Count 4.01 X10*6/uL (4.60-5.80); Red Cell Distribution Width 16.1 % (11.0-16.0); SCAN SMEAR FLAG 1; White Blood Count 20.4 X10*3/uL (4.8-10.8)
[2020-08-12 18:43] LABS: COVID-19 Test Negative (Negative)
[2020-08-12 18:51] LABS: Lactic Acid 1.4 mmol/L (0.5-2.0)
[2020-08-12 18:53] LABS: SLIDE REVIEW VERIFIED
[2020-08-12 18:58] LABS: B Type Natriuretic Peptide 118 pg/mL (<100)
[2020-08-12 19:04] LABS: Glucose Urine UA NEG (NEG); Leukocyte Esterase Urine 2+ (NEG); Nitrite Urine NEG (NEG); PH 7.5 (5.0-8.0); Urine Blood 2+ (NEG); Urine Ketones NEG (NEG); Urine Protein NEG (NEG-TRACE)
[2020-08-12 19:05] LABS: Appearance Urine HAZY; Color Urine YELLOW
[2020-08-12 19:09] LABS: Alanine Aminotransferase 27 U/L (0-40); Albumin Level 2.2 g/dL (3.5-5.0); Alkaline Phosphatase 125 U/L (39-117); Anion Gap 10 (12-20); Aspartate Amino Transferase 48 U/L (5-37); Bilirubin Direct 0.2 mg/dL (0.0-0.5); Bilirubin Total 0.4 mg/dL (0.0-1.0); Blood Urea Nitrogen 26 mg/dL (9-16); Calcium 8.2 mg/dL (8.4-10.2); Carbon Dioxide 25 mmol/L (22-29); Chloride 115 mmol/L (96-108); Creatinine Clr Calc Pharmacy 40.5; Estimated Glomerular Filt Rate 50; Glucose Random 102 mg/dL (60-115); Lipase 14 U/L (8-78); Potassium 5.4 mmol/l (3.3-5.1); Sodium 145 mmol/L (135-145); Total Protein 7.3 g/dL (6.5-8.0)
[2020-08-12 19:16] LABS: Bacteria Urine TRACE /LPF; RBC Urine 50-75 /HPF (0); WBC Urine TNTC /HPF (0-4)
[2020-08-12 20:29] VITALS: BP 141/47; PULSE 77; RESP 21; TEMP 37.1; O2SAT 95
[2020-08-12] MEDS: 0.9 % Sodium Chloride 2,310 ML 2310 ML IVCONT (20:43)
[2020-08-12] MEDS: cefTRIAXone sodium 1 GM in 0.9 % Sodium Chloride 100 ML IV (20:44)
[2020-08-12 21:36] LABS: Ferritin 313 ng/mL (20-250)
[2020-08-12 21:49] LABS: Folate 15.7 ng/mL (> or = 4.0); Vitamin B12 564 pg/mL (200-900)
--- NOTE | 2020-08-12 22:06 | P.HPHOSP_ITS ---
History of Present Illness Date of Service: 08/12/20 Chief Complaint: Altered mentation This is an 84-year-old male with past medical history of Alzheimer's dementia,, TBI, dysphagia, type 2 diabetes, CAD, hypertension, COPD among others who presents to the hospital from [facility] due to lethargy and altered mentation. History is obtained mostly from ED physician as patient has baseline dementia and unable to give any history. It appears that patient was found to be more lethargic today and not himself and therefore he was sent to the ED. No other history was provided. Patient was recently discharged from the hospital after being treated for urosepsis on 07/17. I am unable to obtain review of system due to patient's clinical status On arrival to the ED hemodynamically stable with temp of 99.4?, heart rate of 65, respiratory rate of 18, blood pressure of 126/50, satting 93% on room air, Labs are significant for WBC count of 20.4, hemoglobin of 10.6 (12.6 on 07/17), hematocrit 34.9, MCV of 87, RDW of 16, platelet count of 524, sodium of 145, potassium 5.4, chloride of 115, BUN of 26, creatinine of 1.35 baseline around 1.9), calcium of 8.2, ferritin of 313, AST of 48, alk-phos of 125, BNP of 118, albumin of 2.2, folic acid of 15.7, B12 of 564 UA is positive for leukocyte Estrace as as well as WBC, COVID-19 negative, chest x-ray is shows chronic appearing patchy bilateral is per changes with no new changes Unable to obtain Past medical history from patient patient has Alzheimer's dementia and is currently not really giving any history therefore obtained from EMR Past medical history: Alzheimer's disease, COPD, CVA, dysphagia, GERD, gout, hyperkalemia, hypothyroidism, history of COVID-19 infection Surgical history: Unknown Family history: Unknown Social history: Comes from [facility], currently not a smoker, does not use any alcohol or illicit drugs Review of Systems Review of Systems: Yes all other systems are reviewed and are negative [facility] Medical History Alzheimer disease Chronic pain COPD (chronic obstructive pulmonary disease) COVID-19 CVA (cerebral vascular accident) Dysphagia GERD (gastroesophageal reflux disease) Gout Hypokalemia Hypothyroid Pneumonia Social History Household Members: None Housing: Assisted Alcohol intake: never Smoking Status: Never smoker Advance Directives: No Advance Directives Information Provided: Yes service: No Current occupational status: disabled Meds Allergies Allergy/AdvReac Type Severity Reaction Status Date / Time No Known Allergies Allergy Verified 08/12/20 16:36 [No Known Allergies*] Home Medications Medication Instructions Recorded Confirmed Type Incruse Ellipta 1 inh INHALATION DAILY 07/14/20 08/12/20 History allopurinol 100 mg PO DAILY 07/14/20 08/12/20 History amlodipine 7.5 mg PO DAILY 07/14/20 08/12/20 History artificial tears solution 1 drp OPHTHALMIC (EYE) Q8-10H PRN 07/14/20 08/12/20 History atorvastatin 40 mg PO DAILY 07/14/20 08/12/20 History cyanocobalamin (vitamin B-12) 1 ml IM ONCE 07/14/20 08/12/20 History escitalopram oxalate 5 mg PO DAILY 07/14/20 08/12/20 History famotidine 20 mg PO BID 07/14/20 08/12/20 History levothyroxine 88 mcg PO SUTUWETHFRSA 07/14/20 08/12/20 History lithium carbonate 300 mg PO BID 07/14/20 08/12/20 History potassium chloride 20 meq PO DAILY 07/14/20 08/12/20 History quetiapine 100 mg PO TID 07/14/20 08/12/20 History risperidone 1 mg PO BEDTIME 07/14/20 08/12/20 History tamsulosin 0.8 mg PO DAILY 07/14/20 08/12/20 History topiramate 25 mg PO BID 07/14/20 08/12/20 History sennosides [senna] 8.6 mg PO DAILY PRN 07/15/20 08/12/20 History Physical Exam Vital Signs and Narrative: Vital Signs: Last Vital Signs Temp 98.8 F 08/12/20 20:29 Pulse 77 08/12/20 20:29 Resp 21 H 08/12/20 20:29 BP 141/47 H 08/12/20 20:29 Pulse Ox 95 08/12/20 20:29 Body Mass Index 27.3 Const: Other: Patient is somnolent but arousable General: no acute distress and ill appearing Eyes: General: appearance normal, both eyes and all related structures Resp: Effort & Inspection: normal respiratory effort and able to speak in complete sentences Cardio: Rate: regular rate Rhythm: regular rhythm GI: Palpation (GI): Soft to palpation Auscultation: normal bowel sounds Skin: General skin exam: no rashes or lesions noted Neuro: Cognition (Neuro): normal cognition Extrem: General: Yes normal to inspection and Yes no pedal edema Results Labs CBC and Chem 7: 08/12/20 18:12 08/12/20 18:12 Labs: Laboratory Results - last 24 hr 08/12/20 08/12/20 08/12/20 18:12 18:12 18:12 MCV 87.0 MCH 26.4 L MCHC 30.4 L RDW 16.1 H Plt Count 524 H D MPV 11.3 Immature Gran % (Auto) 1.1 H Neut % (Auto) 73.4 H Lymph % (Auto) 11.1 L [place] % (Auto) 12.7 H Eos % (Auto) 1.5 Baso % (Auto) 0.2 Lymph # (Auto) 2.3 [place] # (Auto) 2.6 H Eos # (Auto) 0.3 Baso # (Auto) 0.0 Abs Immat Gran (auto) 0.22 H Absolute Neuts (auto) 14.9 H Absolute Nucleated RBC 0.000 Nucleated RBC % (auto) 0.0 Smear Tech's Comments VERIFIED Anion Gap 10 L Estim Creat Clear Calc 40.5 Estimated GFR 50 Random Glucose 102 Lactic Acid 1.4 Calcium 8.2 L Ferritin 313 H Total Bilirubin 0.4 Direct Bilirubin 0.2 AST 48 H D ALT 27 Alkaline Phosphatase 125 H B-Natriuretic Peptide Total Protein 7.3 Albumin 2.2 L D Lipase 14 Vitamin B12 Folate Urine Color Urine Appearance Urine pH Ur Specific [place] Urine Protein Urine Glucose (UA) Urine Ketones Urine Blood Urine Nitrite Ur Leukocyte Esterase Urine RBC Urine WBC Ur Squamous Epith Cells Urine Bacteria COVID-19 ([facility]) COVID-19 Clin Com 08/12/20 08/12/20 08/12/20 18:12 18:12 18:12 MCV MCH MCHC RDW Plt Count MPV Immature Gran % (Auto) Neut % (Auto) Lymph % (Auto) [place] % (Auto) Eos % (Auto) Baso % (Auto) Lymph # (Auto) [place] # (Auto) Eos # (Auto) Baso # (Auto) Abs Immat Gran (auto) Absolute Neuts (auto) Absolute Nucleated RBC Nucleated RBC % (auto) Smear Tech's Comments Anion Gap Estim Creat Clear Calc Estimated GFR Random Glucose Lactic Acid Calcium Ferritin Total Bilirubin Direct Bilirubin AST ALT Alkaline Phosphatase B-Natriuretic Peptide 118 H Total Protein Albumin Lipase Vitamin B12 564 Folate 15.7 Urine Color Urine Appearance Urine pH Ur Specific [place] Urine Protein Urine Glucose (UA) Urine Ketones Urine Blood Urine Nitrite Ur Leukocyte Esterase Urine RBC Urine WBC Ur Squamous Epith Cells Urine Bacteria COVID-19 ([facility]) Negative COVID-19 Clin Com See Note 08/12/20 18:58 MCV MCH MCHC RDW Plt Count MPV Immature Gran % (Auto) Neut % (Auto) Lymph % (Auto) [place] % (Auto) Eos % (Auto) Baso % (Auto) Lymph # (Auto) [place] # (Auto) Eos # (Auto) Baso # (Auto) Abs Immat Gran (auto) Absolute Neuts (auto) Absolute Nucleated RBC Nucleated RBC % (auto) Smear Tech's Comments Anion Gap Estim Creat Clear Calc Estimated GFR Random Glucose Lactic Acid Calcium Ferritin Total Bilirubin Direct Bilirubin AST ALT Alkaline Phosphatase B-Natriuretic Peptide Total Protein Albumin Lipase Vitamin B12 Folate Urine Color YELLOW Urine Appearance HAZY Urine pH 7.5 Ur Specific [place] 1.010 Urine Protein NEG Urine Glucose (UA) NEG Urine Ketones NEG Urine Blood 2+ H Urine Nitrite NEG Ur Leukocyte Esterase 2+ H Urine RBC 50-75 H Urine WBC TNTC H Ur Squamous Epith Cells NONE Urine Bacteria TRACE COVID-19 ([facility]) COVID-19 Clin Com Imaging Radiologist's Impressions: Impressions Chest X-Ray 08/12/20 17:32 IMPRESSION: Hypoexpanded. There are chronic appearing patchy bilateral airspace changes. Subtle infectious etiology could have this appearance although some of these changes are chronic when compared to the prior study. Head CT 08/12/20 17:32 IMPRESSION: Chronic microvascular ischemic changes with no CT evidence of acute intracranial abnormality. Assessment and Plan (1) Acute UTI: Status: Acute (2) Acute hyperkalemia: Status: Acute (3) Leukocytosis: Status: Acute (4) Normocytic anemia: Status: Acute (5) CARLO (acute kidney injury): Status: Acute This is an 84-year-old male with past medical history as above who presents to the hospital with altered mentation from jail found to have UTI # encephalopathy - most likely metabolic in the setting of acute UTI - has leukocytosis, afebrile - Has underlying Alzheimer's dementia as well but according to jail patient at baseline is able to get out of bed, feed himself, use the bathroom by himself, and has some warts Plan: - treat acute UTI with IV antibiotics - follow mentation # acute UTI - positive UA - leukocytosis, afebrile, no lactic acidosis - past culture sensitivity shows providencia stuartii sensitive to ceftriaxone Plan: - will start him on ceftriaxone - follow cultures - IV fluids # normocytic anemia - has a hemoglobin of 10, no evidence of acute bleed - ferritin normal, B12 normal, folic acid normal - will obtain occult blood - follow CBC, threshold to transfuse less than 7 # leukocytosis - secondary to acute UTI - follow CBC # CARLO - most likely prerenal - will start IV fluids - follow BMP DVT prophylaxis: Heparin
[2020-08-12 22:29] LABS: Glucose, Whole Blood 109 mg/dL (60-115)
--- NOTE | 2020-08-12 23:00 | PC.NURSE ---
PT ARRIVES FROM [facility], RECEIVED REPORT FROM RN THERE THAT PT HAS BEEN MORE LETHARGIC OVER THE PAST FEW DAYS. TYPICALLY ABLE TO FEED HIMSELF, SPEAKS CLEARLY, UKRAINIAN SPEAKING. 2 PERSON ASSIST, ABLE TO PIVOT. PUREED DIET, HX OF DEMENTIA. ARRIVED TO FACILITY AND WAS NOT SPEAKING, RESPONDING ONLY TO NOXIOUS STIMULI. ALL SPECIMENS OBTAINED, DIFFICULT STICK. FLUIDS RUNNING. FACILITY UPDATED ON PLAN TO ADMIT. C/O TOOTH PAIN, GIVEN PRN APAP.
[2020-08-12] MEDS: Acetaminophen 325 MG TABLET 650 MG PO (23:05)
--- NOTE | 2020-08-12 23:12 | PC.NURSE ---
patient had a bedtime snack ,was inc of urine was clean change and [facility]
[2020-08-13] VITALS (7 sets, daily range): BP systolic 133–153; BP diastolic 37–95; PULSE 62–84; RESP 16–22; TEMP 36.4–37.7; O2SAT 93–97
--- NOTE | 2020-08-13 | XR_ITS ---
EXAMINATION: XR CHEST CLINICAL INFORMATION: Hypoxia COMPARISON: Chest 08/12/2020 TECHNIQUE: Frontal view of the chest was obtained. FINDINGS: Lungs are expanded with extensive bilateral patchy airspace opacities seen similar to previous study. No pleural effusion a pneumothorax seen. The heart size is normal. Aorta is ectatic. Pulmonary vascularity is normal. No gross bony abnormality. XR/XR chest 1V IMPRESSION: Bilateral patchy airspace disease likely underlying infiltrate or infectious etiology. No change from 08/12/2020.
[2020-08-13 00:51] LABS: OBS Int Ctl Valid YES; OBS1 NEG (NEG)
[2020-08-13] MEDS: Heparin Sodium,Porcine 5,000 UNIT/ML VIAL 5000 UNIT SUBCUT ×3 (00:52→21:36)
--- NOTE | 2020-08-13 02:50 | PC.NURSE ---
PATIENT WAS INC CLEAN CHANGE REPOSITION ALSO HAD SIPS OF WATER .
[2020-08-13] MEDS: Lactated Ringers 1,000 ML 100 ML IVCONT (03:16)
[2020-08-13 05:30] LABS: Basophils Absolute Auto 0.1 X10*3/uL (0.0-0.2); Basophils Percent Auto 0.3 % (0-2); Eosinophils Absolute Auto 0.3 X10*3/uL (0.0-0.4); Hematocrit 35.3 % (42-52); Hemoglobin 10.8 g/dl (14.0-18.0); Imm Gran Abs Auto 0.34 X10*3/uL (0.00-0.03); Imm Gran Pct Auto 1.3 % (0.0-0.4); Lymphocytes Absolute Auto 1.7 X10*3/uL (1.2-4.9); Lymphocytes Percent Auto 6.7 % (20-40); MANUAL DIFF FLAG SCAN; Mean Corpuscular HGB Conc 30.6 g/dl (31.0-36.0); Mean Corpuscular Hemoglobin 26.8 pg (27.0-33.0); Mean Corpuscular Volume 87.6 fL (80-98); Mean Platelet Volume 10.7 fL (9.4-12.4); Monocytes Absolute Auto 2.7 X10*3/uL (0.1-1.2); Monocytes Percent Auto 10.2 % (2-11); Neutrophils Percent Auto 80.5 % (45-73); Platelet Count 513 X10*3/uL (160-400); Red Blood Count 4.03 X10*6/uL (4.60-5.80); Red Cell Distribution Width 16.2 % (11.0-16.0); SCAN SMEAR FLAG 1; White Blood Count 26.1 X10*3/uL (4.8-10.8)
[2020-08-13 05:54] LABS: SLIDE REVIEW VERIFIED
[2020-08-13 06:06] LABS: Anion Gap 11 (12-20); Blood Urea Nitrogen 21 mg/dL (9-16); Calcium 8.1 mg/dL (8.4-10.2); Carbon Dioxide 20 mmol/L (22-29); Chloride 121 mmol/L (96-108); Creatinine Clr Calc Pharmacy 56.9; Estimated Glomerular Filt Rate > 60; Glucose Random 100 mg/dL (60-115); Potassium 4.2 mmol/l (3.3-5.1); Sodium 148 mmol/L (135-145)
[2020-08-13 08:55] LABS: Glucose, Whole Blood 104 mg/dL (60-115)
[2020-08-13 09:19] LABS: Glucose, Whole Blood 109 mg/dL (60-115)
[2020-08-13] MEDS: Dextrose 5 % 1,000 ML 100 ML IVCONT (09:23)
--- NOTE | 2020-08-13 12:00 | P.PNIM_ITS ---
Subjective Subjective Date of Service: 08/13/20 Interval History: seen and examined this AM pleasantly confused unable to ROS Physical Exam Vital Signs: Vital Signs: Last Vital Signs Temp 97.8 F 08/13/20 09:11 Pulse 84 08/13/20 09:11 Resp 18 08/13/20 09:11 BP 150/59 H 08/13/20 09:11 Pulse Ox 97 08/13/20 09:11 Body Mass Index 27.3 Const: Other: General - no acute distress, appears comfortable Cardiovascular - regular rate and rhythm, S1-S2 Lungs - normal respiratory effort, clear to auscultation bilaterally, no wheezing Abdomen - soft, nontender, no rebound or guarding Extremities - no edema bilaterally Neuro - awake and alert, no focal deficits, disoriented Objective Data Current Medications Generic Name Dose Route Start Last Admin Trade Name Freq PRN Reason Stop Dose Admin Acetaminophen 650 mg 08/12/20 20:50 08/12/20 23:05 Acetaminophen 325 Mg Tablet PO 650 mg Q6H PRN Administration Pain, Mild (Pain Scale 1-3) Docusate Sodium 100 mg 08/12/20 20:50 Docusate Sodium 100 Mg Capsule PO DAILY PRN Constipation Heparin Sodium (Porcine) 5,000 unit 08/12/20 21:00 08/13/20 09:27 Heparin Sodium,Porcine 5,000 Unit/Ml Vial SUBCUT 5,000 unit Q12H DANIEL Administration Ceftriaxone Sodium 1 gm/ 50 mls @ 100 mls/hr 08/12/20 21:00 08/12/20 21:29 Sodium Chloride IV Not Given Q24H DANIEL Dextrose 1,000 mls @ 100 mls/hr 08/13/20 08:15 08/13/20 09:23 D5w IVCONT 08/13/20 18:14 100 mls/hr .Q10H DANIEL Administration Insulin Human Lispro 0 unit 08/13/20 07:30 08/13/20 09:28 Insulin Lispro 100 Unit/Ml 3 Ml Vial SUBCUT Not Given QIDACHS [facility] Protocol Ondansetron HCl 4 mg 08/12/20 20:50 Ondansetron Hcl 4 Mg/2 Ml Vial IVPUSH Q8H PRN Nausea and Vomiting Sodium Chloride 3 ml 08/13/20 00:00 08/13/20 09:29 0.9 % Sodium Chloride Flush 3 Ml Syringe IVFLUSH Not Given QSHIFT [facility] Labs CBC & Chem 7: 08/13/20 05:27 08/13/20 05:27 Microbiology Microbiology Results: Microbiology 08/12/20 19:07 Urine Catheterized - Carlson Catheter Urine Culture - Preliminary Culture in progress. Assessment and Plan (1) CARLO (acute kidney injury): Status: Acute (2) Acute UTI: Status: Acute Assessment and Plan: This is a 84-year-old male who is a resident at [facility] and presents to the hospital with acute mental status changes. He is admitted for treatment of UTI and mild acute kidney injury. 1. Toxic/metabolic encephalopathy Due to urinary tract infection and mild acute kidney injury as well as mild hypernatremia 2. Urinary tract infection IV ceftriaxone Follow cultures and tailor antibiotics appropriately 3. Mild acute kidney injury Baseline creatinine appears to be around 0.8-0.9, presented at 1.35 Improved with IV hydration Continue monitoring 4. Hypernatremia Mild Change fluids to D5W x 1L 5. HTN continue norvasc 6. Mood continue home meds 7. DM sliding scale diabetic diet Full Code DVT ppx, subcut. heparin
[2020-08-13 12:08] LABS: Glucose, Whole Blood 98 mg/dL (60-115)
--- NOTE | 2020-08-13 15:18 | MHC.CM.PN ---
Addendum entered by Nidia Banks RN 08/13/20 15:37: CM LEFT MESSAGE ON CONFIDENTIAL VOICEMAIL FOR [facility]ARDIAN REGARDING PT'S HOSPITAL ADMISSION, CALL BACK INCLUDED IN MESSAGE. Original Note: IMM 08/13/20 REVIEWED W/PT'S CORPORATE RESPONSIBILITY OFFICER AT [facility], DISCHARGE PLAN TO RETURN TO SNF VIA BLS TRANSPORT, PER PT'S CORPORATE RESPONSIBILITY OFFICER PT IS ONLY ORIENTED TO NAME, PT HAS NO FAMILY, PT DOES HAVE A COURT APPOINTED GUARDIAN, DOES NOT KNOW WHERE HE IS OR TIME, PT DOES RECOGNIZE PEOPLE AT TIMES BUT DOES NOT RECALL NAMES, PT IS A TOTAL ASSIST WITH CARE AND TRANSFERS, PT IS 2 PERSON ASSIST WITH TRANSFERS TO AND FROM WHEELCHAIR, PT INCONTINENT OF URINE AND STOOL ALTHOUGH HE WILL ASK TO GO TO THE BATHROOM FREQUENTLY EVEN THOUGH HE IS ALWAYS INCONTINENT, PT DOES GET MAD AT TIMES IF HE IS NOT TOILETED HOWEVER NO MENTION OF VIOLENCE. [facility] CORPORATE RESPONSIBILITY OFFICER: ADITI [phone] GUARDIAN: TYLER WINTERS [facility] [phone] [facility] [phone]
[2020-08-13 16:25] LABS: Glucose, Whole Blood 115 mg/dL (60-115)
--- NOTE | 2020-08-13 19:47 | PC.NURSE ---
P-Sat 82% on RA I-- repositined patient,applied oxygen at 2l,lungs sounds coarse at the bilateral bases,Dr. Riojas notified E-sat 93% on 2 liters of of oxygen,will monitor
[2020-08-13 20:44] LABS: Glucose, Whole Blood 116 mg/dL (60-115)
[2020-08-13 21:09] LABS: B Type Natriuretic Peptide 305 pg/mL (<100)
[2020-08-13] MEDS: cefTRIAXone sodium 1 GM in 0.9 % Sodium Chloride 50 ML IV (21:37)
--- NOTE | 2020-08-13 21:39 | PM.EVENT ---
Event Note Date of Service: 08/13/20 Event Note: pt became hypoxic with increased O2 requirements Cxr showing bilateral infiltrates Pt already on ceftriaxone, will add azithromycin, will also obtain legionella as well as strep PNA antigen, will obtain RVP
--- NOTE | 2020-08-13 21:49 | PC.NURSE ---
P-BNP 305 I- notified
[2020-08-13] MEDS: Azithromycin 500 MG in 0.9 % Sodium Chloride 250 ML 125 MG IV (22:22)
[2020-08-13 23:11] LABS: Adenovirus PCR Not Detected (Not Detect.); Bordetella parapertussis PCR Not Detected (Not Detect.); Bordetella pertussis PCR Not Detected (Not Detect.); Chlamydia pneumoniae PCR Not Detected (Not Detect.); Coronavirus 229E PCR Not Detected (Not Detect.); Coronavirus HKU1 PCR Not Detected (Not Detect.); Coronavirus NL63 PCR Not Detected (Not Detect.); Coronavirus OC43 PCR Not Detected (Not Detect.); Human metapneumovirus PCR Not Detected (Not Detect.); Influenza A PCR Not Detected (Not Detect.); Influenza B PCR Not Detected (Not Detect.); Mycoplasma pneumoniae PCR Not Detected (Not Detect.); Parainfluenza 1 PCR Not Detected (Not Detect.); Parainfluenza 2 PCR Not Detected (Not Detect.); Parainfluenza 3 PCR Not Detected (Not Detect.); Parainfluenza 4 PCR Not Detected (Not Detect.); RSV PCR Not Detected (Not Detect.); Rhino/Enterovirus PCR Not Detected (Not Detect.); SARS-CoV-2 PCR Not Detected (Not Detect.)
[2020-08-14 03:56] VITALS: BP 151/65; PULSE 67; RESP 20; TEMP 36.6; O2SAT 100
[2020-08-14 07:18] LABS: Anion Gap 12 (12-20); Blood Urea Nitrogen 16 mg/dL (9-16); Carbon Dioxide 19 mmol/L (22-29); Chloride 121 mmol/L (96-108); Creatinine Clr Calc Pharmacy 56.3; Estimated Glomerular Filt Rate > 60; Glucose Random 84 mg/dL (60-115); Sodium 148 mmol/L (135-145)
[2020-08-14] MEDS: Dextrose 5 % 1,000 ML 100 ML IVCONT ×2 (07:57→16:44)
[2020-08-14] MEDS: 0.9 % Sodium Chloride Flush 3 ML SYRINGE IVFLUSH (07:57)
[2020-08-14] MEDS: Heparin Sodium,Porcine 5,000 UNIT/ML VIAL 5000 UNIT SUBCUT ×2 (07:58→20:23)
[2020-08-14 08:01] LABS: Glucose, Whole Blood 76 mg/dL (60-115)
--- NOTE | 2020-08-14 08:06 | HO.PM.IMPN ---
Subjective Subjective Date of Service: 08/14/20 Interval History: seen and examined this AM no issues reported by hourly sales staff unable to ROS Physical Exam Vital Signs: Vital Signs: Last Vital Signs Temp 98 F 08/14/20 03:56 Pulse 67 08/14/20 03:56 Resp 20 08/14/20 03:56 BP 151/65 H 08/14/20 03:56 Pulse Ox 100 08/14/20 03:56 Body Mass Index 27.3 Const: Other: General - no acute distress, appears comfortable Cardiovascular - regular rate and rhythm, S1-S2 Lungs - normal respiratory effort, clear to auscultation bilaterally, no wheezing Abdomen - soft, nontender, no rebound or guarding Extremities - no edema bilaterally Neuro - awake and alert, no focal deficits, disoriented Objective Data Current Medications Generic Name Dose Route Start Last Admin Trade Name Freq PRN Reason Stop Dose Admin Acetaminophen 650 mg 08/12/20 20:50 08/12/20 23:05 Acetaminophen 325 Mg Tablet PO 650 mg Q6H PRN Administration Pain, Mild (Pain Scale 1-3) Docusate Sodium 100 mg 08/12/20 20:50 Docusate Sodium 100 Mg Capsule PO DAILY PRN Constipation Heparin Sodium (Porcine) 5,000 unit 08/12/20 21:00 08/14/20 07:58 Heparin Sodium,Porcine 5,000 Unit/Ml Vial SUBCUT 5,000 unit Q12H DANIEL Administration Ceftriaxone Sodium 1 gm/ 50 mls @ 100 mls/hr 08/12/20 21:00 08/13/20 22:09 Sodium Chloride IV Infused Q24H DANIEL Infusion Azithromycin 500 mg/ Sodium 250 mls @ 125 mls/hr 08/13/20 22:00 08/14/20 02:17 Chloride IV Infused Q24H DANIEL Infusion Dextrose 1,000 mls @ 100 mls/hr 08/14/20 07:30 08/14/20 07:57 D5w IVCONT 100 mls/hr .Q10H DANIEL Administration Insulin Human Lispro 0 unit 08/13/20 07:30 08/14/20 07:57 Insulin Lispro 100 Unit/Ml 3 Ml Vial SUBCUT Not Given QIDACHS [facility] Protocol Ondansetron HCl 4 mg 08/12/20 20:50 Ondansetron Hcl 4 Mg/2 Ml Vial IVPUSH Q8H PRN Nausea and Vomiting Sodium Chloride 3 ml 08/13/20 00:00 08/14/20 07:57 0.9 % Sodium Chloride Flush 3 Ml Syringe IVFLUSH 3 ml QSHIFT DANIEL Administration Labs CBC & Chem 7: 08/13/20 05:27 08/14/20 05:59 Microbiology Microbiology Results: Microbiology 08/12/20 18:12 Blood - Venous Blood Culture - Preliminary No growth after 24 hours. 08/12/20 18:12 Blood - Venous Blood Culture - Preliminary No growth after 24 hours. 08/12/20 19:07 Urine Catheterized - Carlson Catheter Urine Culture - Preliminary Culture in progress. Assessment and Plan (1) CARLO (acute kidney injury): Status: Acute (2) Acute UTI: Status: Acute Assessment and Plan: This is a 84-year-old male who is a resident at [facility] and presents to the hospital with acute mental status changes. He is admitted for treatment of UTI and mild acute kidney injury. 1. Toxic/metabolic encephalopathy Due to urinary tract infection and mild acute kidney injury as well as mild hypernatremia improving 2. Urinary tract infection IV ceftriaxone blood cx negative @ 24 hours, UA pending 3. Mild acute kidney injury Baseline creatinine appears to be around 0.8-0.9, presented at 1.35 Improved with IV hydration Continue monitoring 4. Hypernatremia still persists D5W @ 100 cc/hr recheck SNa this afternoon 5. HTN continue norvasc 6. Mood continue home meds 7. DM sliding scale diabetic diet Full Code DVT ppx, subcut. heparin
[2020-08-14 09:37] LABS: Hematocrit 35.3 % (42-52); Hemoglobin 10.7 g/dl (14.0-18.0); Mean Corpuscular HGB Conc 30.3 g/dl (31.0-36.0); Mean Corpuscular Hemoglobin 26.6 pg (27.0-33.0); Mean Corpuscular Volume 87.6 fL (80-98); Mean Platelet Volume 12.7 fL (9.4-12.4); Platelet Count 316 X10*3/uL (160-400); Red Blood Count 4.03 X10*6/uL (4.60-5.80); Red Cell Distribution Width 16.4 % (11.0-16.0)
[2020-08-14 10:51] VITALS: BP 129/58; PULSE 66; RESP 18; TEMP 36.9; O2SAT 99
[2020-08-14 11:10] LABS: Glucose, Whole Blood 99 mg/dL (60-115)
--- NOTE | 2020-08-14 11:41 | MHC.CM.PN ---
REFERRAL FOR RESUMPTION OF CARE AT [facility]
--- NOTE | 2020-08-14 13:04 | MHC.CM.PN ---
PER INTERDISCIPLINARY DISCHARGE ANTICIPATED FOR 08/15/20, PT WILL RETURN TO [facility] [place] VIA S TRANSPORT. CM WILL NOTIFY DIRECT OF NURSING ADITI
[2020-08-14 14:56] LABS: Anion Gap 9 (12-20); Blood Urea Nitrogen 15 mg/dL (9-16); Calcium 7.7 mg/dL (8.4-10.2); Carbon Dioxide 22 mmol/L (22-29); Chloride 119 mmol/L (96-108); Creatinine Clr Calc Pharmacy 56.3; Estimated Glomerular Filt Rate > 60; Glucose Random 111 mg/dL (60-115); Potassium 3.7 mmol/l (3.3-5.1); Sodium 146 mmol/L (135-145)
[2020-08-14] MEDS: Sodium Bicarbonate 650 MG TABLET PO (15:04)
[2020-08-14] MEDS: Escitalopram Oxalate 5 MG TABLET PO (15:04)
[2020-08-14] MEDS: QUEtiapine Fumarate 100 MG TABLET PO (15:04)
[2020-08-14 15:22] VITALS: BP 120/51; PULSE 69; RESP 18; TEMP 36.7; O2SAT 96
[2020-08-14 16:37] LABS: Glucose, Whole Blood 110 mg/dL (60-115)
[2020-08-14 20:00] VITALS: BP 128/48; PULSE 73; RESP 18; TEMP 36.6; O2SAT 95
[2020-08-14] MEDS: cefTRIAXone sodium 1 GM in 0.9 % Sodium Chloride 50 ML IV (20:23)
[2020-08-14 20:35] LABS: Glucose, Whole Blood 114 mg/dL (60-115)
[2020-08-14] MEDS: Azithromycin 500 MG in 0.9 % Sodium Chloride 250 ML 125 MG IV (21:27)
[2020-08-15] VITALS: BP 155/55; PULSE 68; RESP 18; TEMP 36.2; O2SAT 97
[2020-08-15] MEDS: Lithium Carbonate 300 MG CAPSULE PO ×2 (00:28→08:45)
[2020-08-15] MEDS: Sodium Bicarbonate 650 MG TABLET PO ×4 (00:28→21:32)
[2020-08-15] MEDS: Famotidine 20 MG TABLET PO ×3 (00:28→21:32)
[2020-08-15] MEDS: Topiramate 25 MG TABLET PO ×3 (00:28→21:32)
[2020-08-15] MEDS: QUEtiapine Fumarate 100 MG TABLET PO ×4 (00:28→21:32)
[2020-08-15] MEDS: risperiDONE 1 MG TABLET PO ×2 (00:29→21:32)
[2020-08-15 03:45] VITALS: BP 150/54; PULSE 67; RESP 18; TEMP 36.6; O2SAT 100
[2020-08-15] MEDS: Dextrose 5 % 1,000 ML 100 ML IVCONT (03:56)
[2020-08-15] MEDS: Levothyroxine Sodium 88 MCG TABLET PO (05:53)
[2020-08-15 06:20] LABS: Hematocrit 33.3 % (42-52); Hemoglobin 10.2 g/dl (14.0-18.0); Mean Corpuscular HGB Conc 30.6 g/dl (31.0-36.0); Mean Corpuscular Hemoglobin 26.8 pg (27.0-33.0); Mean Corpuscular Volume 87.4 fL (80-98); Mean Platelet Volume 12.1 fL (9.4-12.4); Platelet Count 315 X10*3/uL (160-400); Red Blood Count 3.81 X10*6/uL (4.60-5.80); Red Cell Distribution Width 16.5 % (11.0-16.0); White Blood Count 15.9 X10*3/uL (4.8-10.8)
[2020-08-15 06:35] LABS: Anion Gap 10 (12-20); Blood Urea Nitrogen 16 mg/dL (9-16); Calcium 7.4 mg/dL (8.4-10.2); Carbon Dioxide 19 mmol/L (22-29); Chloride 117 mmol/L (96-108); Estimated Glomerular Filt Rate > 60; Glucose Random 104 mg/dL (60-115); Potassium 3.7 mmol/l (3.3-5.1); Sodium 142 mmol/L (135-145)
[2020-08-15 07:46] VITALS: BP 136/55; PULSE 65; RESP 18; TEMP 36.1; O2SAT 99
[2020-08-15 08:01] LABS: Glucose, Whole Blood 108 mg/dL (60-115)
[2020-08-15] MEDS: Heparin Sodium,Porcine 5,000 UNIT/ML VIAL 5000 UNIT SUBCUT ×2 (08:44→21:32)
[2020-08-15] MEDS: Atorvastatin Calcium 40 MG TABLET PO (08:45)
[2020-08-15] MEDS: allopurinoL 100 MG TABLET PO (08:45)
[2020-08-15] MEDS: amLODIPine Besylate 2.5 MG TABLET 7.5 MG PO (08:45)
[2020-08-15] MEDS: Tamsulosin HCL 0.4 MG CAPSULE 0.8 MG PO (08:46)
[2020-08-15] MEDS: Escitalopram Oxalate 5 MG TABLET PO (08:46)
[2020-08-15 11:31] VITALS: BP 134/53; PULSE 67; RESP 19; TEMP 37.1; O2SAT 95
[2020-08-15 11:44] LABS: Glucose, Whole Blood 126 mg/dL (60-115)
--- NOTE | 2020-08-15 14:33 | P.DS_ITS ---
DS: Providers Provider Date of Service: 08/16/20 Date of admission: 08/12/20 20:50 Primary care physician: Unknown Physician DS: Diagnosis Discharge Diagnosis (1) Pneumonia: Status: Acute (2) Hypoxia: Status: Acute (3) CARLO (acute kidney injury): Status: Acute (4) Acute UTI: Status: Acute DS: Medications Discharge Medications Home Medications: Home Medications Medication Instructions Recorded Confirmed Incruse Ellipta 1 inh INHALATION DAILY 07/14/20 08/12/20 allopurinol 100 mg PO DAILY 07/14/20 08/12/20 amlodipine 7.5 mg PO DAILY 07/14/20 08/12/20 artificial tears solution 1 drp OPHTHALMIC (EYE) Q8-10H PRN 07/14/20 08/12/20 atorvastatin 40 mg PO DAILY 07/14/20 08/12/20 cyanocobalamin (vitamin B-12) 1 ml IM ONCE 07/14/20 08/12/20 escitalopram oxalate 5 mg PO DAILY 07/14/20 08/12/20 famotidine 20 mg PO BID 07/14/20 08/12/20 levothyroxine 88 mcg PO SUTUWETHFRSA 07/14/20 08/12/20 lithium carbonate 300 mg PO BID 07/14/20 08/12/20 potassium chloride 20 meq PO DAILY 07/14/20 08/12/20 quetiapine 100 mg PO TID 07/14/20 08/12/20 risperidone 1 mg PO BEDTIME 07/14/20 08/12/20 tamsulosin 0.8 mg PO DAILY 07/14/20 08/12/20 topiramate 25 mg PO BID 07/14/20 08/12/20 sennosides [senna] 8.6 mg PO DAILY PRN 07/15/20 08/12/20 Previous Rx's Medication Instructions Recorded sodium bicarbonate 650 mg PO TID #30 tab 07/17/20 azithromycin [Zithromax] 500 mg PO DAILY 3 Days #3 tab 08/15/20 cefuroxime axetil 500 mg PO Q12H #10 tab 08/15/20 DS: Summary Hospital Course Hospital Course: Patient presented with acute mental status changes which were initially felt secondary to a urinary tract infection based off his UA. He was empirically started on IV ceftriaxone and cultures were followed. His blood cultures as well as his urine cultures returned negative. His hospital course was further complicated by hypoxia which quickly improved with 2 L of O2 by nasal cannula. A subsequent chest x-ray was checked which showed patchy bilateral airspace d isease of infectious etiology (similar to prior study). Zithromax was subsequently added for atypical coverage. A repeat COVID was checked which was negative. Fortunately his hypoxia resolved and he will be discharged home on oral Ceftin and Zithromax to complete a course of antibiotics. Time Spent with Patient Time attestation: Total time spent providing and/or coordinating discharge services: Discharge coordination time: Greater than 30 minutes Physical Exam Vital Signs: Vital Signs: Last Vital Signs Temp 98.7 F 08/15/20 11:31 Pulse 67 08/15/20 11:31 Resp 19 08/15/20 11:31 BP 134/53 L 08/15/20 11:31 Pulse Ox 95 08/15/20 11:31 Body Mass Index 27.3 General - no acute distress, appears comfortable Cardiovascular - regular rate and rhythm, S1-S2 Lungs - normal respiratory effort, clear to auscultation bilaterally, no wheezing Abdomen - soft, nontender, no rebound or guarding Extremities - no edema bilaterally Neuro - awake and alert, no focal deficits, disoriented DS: Data Data Completed and Pending Labs on day of discharge: Laboratory Tests 08/12/20 08/12/20 08/12/20 18:12 18:12 18:12 WBC 20.4 H RBC 4.01 L Hgb 10.6 L Hct 34.9 L MCV 87.0 MCH 26.4 L MCHC 30.4 L RDW 16.1 H Plt Count 524 H D MPV 11.3 Immature Gran % (Auto) 1.1 H Neut % (Auto) 73.4 H Lymph % (Auto) 11.1 L Swisher % (Auto) 12.7 H Eos % (Auto) 1.5 Baso % (Auto) 0.2 Lymph # (Auto) 2.3 Swisher # (Auto) 2.6 H Eos # (Auto) 0.3 Baso # (Auto) 0.0 Abs Immat Gran (auto) 0.22 H Absolute Neuts (auto) 14.9 H Absolute Nucleated RBC 0.000 Nucleated RBC % (auto) 0.0 Smear Tech's Comments VERIFIED Sodium 145 Potassium 5.4 H D Chloride 115 H Carbon Dioxide 25 Anion Gap 10 L BUN 26 H Creatinine 1.35 Estim Creat Clear Calc 40.5 Estimated GFR 50 POC Glucose Random Glucose 102 Lactic Acid 1.4 Calcium 8.2 L Ferritin 313 H Total Bilirubin 0.4 Direct Bilirubin 0.2 AST 48 H D ALT 27 Alkaline Phosphatase 125 H B-Natriuretic Peptide Total Protein 7.3 Albumin 2.2 L D Lipase 14 Vitamin B12 Folate Urine Color Urine Appearance Urine pH Ur Specific Marion Urine Protein Urine Glucose (UA) Urine Ketones Urine Blood Urine Nitrite Ur Leukocyte Esterase Urine RBC Urine WBC Ur Squamous Epith Cells Urine Bacteria Stool Occult Blood Respiratory Panel Portillo Adenovirus (Rapid PCR) B.pert (TEM-PCR) B.parapertussis DNA PCR C. pneumoniae DNA (PCR) Coronavirus OC43 (PCR) Coronavirus HKU1 (PCR) Coronavirus 229E (PCR) COVID-19 ([facility]) COVID-19 Clin Com Coronavirus NL63 (PCR) Human Metapneumovir PCR Influenza A (RT-PCR) Influenza B (RT-PCR) M. pneumoniae (PCR) Parainfluenza 1 (PCR) Parainfluenza 2 (PCR) Parainfluenza 3 (PCR) Parainfluenza 4 (PCR) RSV (PCR) Entero/Rhino (PCR) SARS-CoV-2 RNA (RT-PCR) 08/12/20 08/12/20 08/12/20 18:12 18:12 18:12 WBC RBC Hgb Hct MCV MCH MCHC RDW Plt Count MPV Immature Gran % (Auto) Neut % (Auto) Lymph % (Auto) Swisher % (Auto) Eos % (Auto) Baso % (Auto) Lymph # (Auto) Swisher # (Auto) Eos # (Auto) Baso # (Auto) Abs Immat Gran (auto) Absolute Neuts (auto) Absolute Nucleated RBC Nucleated RBC % (auto) Smear Tech's Comments Sodium Potassium Chloride Carbon Dioxide Anion Gap BUN Creatinine Estim Creat Clear Calc Estimated GFR POC Glucose Random Glucose Lactic Acid Calcium Ferritin Total Bilirubin Direct Bilirubin AST ALT Alkaline Phosphatase B-Natriuretic Peptide 118 H Total Protein Albumin Lipase Vitamin B12 564 Folate 15.7 Urine Color Urine Appearance Urine pH Ur Specific Marion Urine Protein Urine Glucose (UA) Urine Ketones Urine Blood Urine Nitrite Ur Leukocyte Esterase Urine RBC Urine WBC Ur Squamous Epith Cells Urine Bacteria Stool Occult Blood Respiratory Panel Portillo Adenovirus (Rapid PCR) B.pert (TEM-PCR) B.parapertussis DNA PCR C. pneumoniae DNA (PCR) Coronavirus OC43 (PCR) Coronavirus HKU1 (PCR) Coronavirus 229E (PCR) COVID-19 ([facility]) Negative COVID-19 Clin Com See Note Coronavirus NL63 (PCR) Human Metapneumovir PCR Influenza A (RT-PCR) Influenza B (RT-PCR) M. pneumoniae (PCR) Parainfluenza 1 (PCR) Parainfluenza 2 (PCR) Parainfluenza 3 (PCR) Parainfluenza 4 (PCR) RSV (PCR) Entero/Rhino (PCR) SARS-CoV-2 RNA (RT-PCR) 08/12/20 08/12/20 08/13/20 18:58 22:21 00:40 WBC RBC Hgb Hct MCV MCH MCHC RDW Plt Count MPV Immature Gran % (Auto) Neut % (Auto) Lymph % (Auto) Swisher % (Auto) Eos % (Auto) Baso % (Auto) Lymph # (Auto) Swisher # (Auto) Eos # (Auto) Baso # (Auto) Abs Immat Gran (auto) Absolute Neuts (auto) Absolute Nucleated RBC Nucleated RBC % (auto) Smear Tech's Comments Sodium Potassium Chloride Carbon Dioxide Anion Gap BUN Creatinine Estim Creat Clear Calc Estimated GFR POC Glucose 109 Random Glucose Lactic Acid Calcium Ferritin Total Bilirubin Direct Bilirubin AST ALT Alkaline Phosphatase B-Natriuretic Peptide Total Protein Albumin Lipase Vitamin B12 Folate Urine Color YELLOW Urine Appearance HAZY Urine pH 7.5 Ur Specific Marion 1.010 Urine Protein NEG Urine Glucose (UA) NEG Urine Ketones NEG Urine Blood 2+ H Urine Nitrite NEG Ur Leukocyte Esterase 2+ H Urine RBC 50-75 H Urine WBC TNTC H Ur Squamous Epith Cells NONE Urine Bacteria TRACE Stool Occult Blood NEG Respiratory Panel Portillo Adenovirus (Rapid PCR) B.pert (TEM-PCR) B.parapertussis DNA PCR C. pneumoniae DNA (PCR) Coronavirus OC43 (PCR) Coronavirus HKU1 (PCR) Coronavirus 229E (PCR) COVID-19 ([facility]) COVID-19 Clin Com Coronavirus NL63 (PCR) Human Metapneumovir PCR Influenza A (RT-PCR) Influenza B (RT-PCR) M. pneumoniae (PCR) Parainfluenza 1 (PCR) Parainfluenza 2 (PCR) Parainfluenza 3 (PCR) Parainfluenza 4 (PCR) RSV (PCR) Entero/Rhino (PCR) SARS-CoV-2 RNA (RT-PCR) 08/13/20 08/13/20 08/13/20 05:27 05:27 08:09 WBC 26.1 H RBC 4.03 L Hgb 10.8 L Hct 35.3 L MCV 87.6 MCH 26.8 L MCHC 30.6 L RDW 16.2 H Plt Count 513 H MPV 10.7 Immature Gran % (Auto) 1.3 H Neut % (Auto) 80.5 H Lymph % (Auto) 6.7 L Swisher % (Auto) 10.2 Eos % (Auto) 1.0 Baso % (Auto) 0.3 Lymph # (Auto) 1.7 Swisher # (Auto) 2.7 H Eos # (Auto) 0.3 Baso # (Auto) 0.1 Abs Immat Gran (auto) 0.34 H Absolute Neuts (auto) 21.0 H Absolute Nucleated RBC 0.000 Nucleated RBC % (auto) 0.0 Smear Tech's Comments VERIFIED Sodium 148 H Potassium 4.2 D Chloride 121 H Carbon Dioxide 20 L Anion Gap 11 L BUN 21 H Creatinine 0.96 Estim Creat Clear Calc 56.9 Estimated GFR > 60 POC Glucose 104 Random Glucose 100 Lactic Acid Calcium 8.1 L Ferritin Total Bilirubin Direct Bilirubin AST ALT Alkaline Phosphatase B-Natriuretic Peptide Total Protein Albumin Lipase Vitamin B12 Folate Urine Color Urine Appearance Urine pH Ur Specific Marion Urine Protein Urine Glucose (UA) Urine Ketones Urine Blood Urine Nitrite Ur Leukocyte Esterase Urine RBC Urine WBC Ur Squamous Epith Cells Urine Bacteria Stool Occult Blood Respiratory Panel Portillo Adenovirus (Rapid PCR) B.pert (TEM-PCR) B.parapertussis DNA PCR C. pneumoniae DNA (PCR) Coronavirus OC43 (PCR) Coronavirus HKU1 (PCR) Coronavirus 229E (PCR) COVID-19 ([facility]) COVID-19 Clin Com Coronavirus NL63 (PCR) Human Metapneumovir PCR Influenza A (RT-PCR) Influenza B (RT-PCR) M. pneumoniae (PCR) Parainfluenza 1 (PCR) Parainfluenza 2 (PCR) Parainfluenza 3 (PCR) Parainfluenza 4 (PCR) RSV (PCR) Entero/Rhino (PCR) SARS-CoV-2 RNA (RT-PCR) 08/13/20 08/13/20 08/13/20 09:15 12:02 16:20 WBC RBC Hgb Hct MCV MCH MCHC RDW Plt Count MPV Immature Gran % (Auto) Neut % (Auto) Lymph % (Auto) Swisher % (Auto) Eos % (Auto) Baso % (Auto) Lymph # (Auto) Swisher # (Auto) Eos # (Auto) Baso # (Auto) Abs Immat Gran (auto) Absolute Neuts (auto) Absolute Nucleated RBC Nucleated RBC % (auto) Smear Tech's Comments Sodium Potassium Chloride Carbon Dioxide Anion Gap BUN Creatinine Estim Creat Clear Calc Estimated GFR POC Glucose 109 98 115 Random Glucose Lactic Acid Calcium Ferritin Total Bilirubin Direct Bilirubin AST ALT Alkaline Phosphatase B-Natriuretic Peptide Total Protein Albumin Lipase Vitamin B12 Folate Urine Color Urine Appearance Urine pH Ur Specific [place] Urine Protein Urine Glucose (UA) Urine Ketones Urine Blood Urine Nitrite Ur Leukocyte Esterase Urine RBC Urine WBC Ur Squamous Epith Cells Urine Bacteria Stool Occult Blood Respiratory Panel Portillo Adenovirus (Rapid PCR) B.pert (TEM-PCR) B.parapertussis DNA PCR C. pneumoniae DNA (PCR) Coronavirus OC43 (PCR) Coronavirus HKU1 (PCR) Coronavirus 229E (PCR) COVID-19 ([facility]) COVID-19 Clin Com Coronavirus NL63 (PCR) Human Metapneumovir PCR Influenza A (RT-PCR) Influenza B (RT-PCR) M. pneumoniae (PCR) Parainfluenza 1 (PCR) Parainfluenza 2 (PCR) Parainfluenza 3 (PCR) Parainfluenza 4 (PCR) RSV (PCR) Entero/Rhino (PCR) SARS-CoV-2 RNA (RT-PCR) 08/13/20 08/13/20 08/13/20 20:36 20:40 22:45 WBC RBC Hgb Hct MCV MCH MCHC RDW Plt Count MPV Immature Gran % (Auto) Neut % (Auto) Lymph % (Auto) Swisher % (Auto) Eos % (Auto) Baso % (Auto) Lymph # (Auto) Swisher # (Auto) Eos # (Auto) Baso # (Auto) Abs Immat Gran (auto) Absolute Neuts (auto) Absolute Nucleated RBC Nucleated RBC % (auto) Smear Tech's Comments Sodium Potassium Chloride Carbon Dioxide Anion Gap BUN Creatinine Estim Creat Clear Calc Estimated GFR POC Glucose 116 H Random Glucose Lactic Acid Calcium Ferritin Total Bilirubin Direct Bilirubin AST ALT Alkaline Phosphatase B-Natriuretic Peptide 305 H Total Protein Albumin Lipase Vitamin B12 Folate Urine Color Urine Appearance Urine pH Ur Specific [place] Urine Protein Urine Glucose (UA) Urine Ketones Urine Blood Urine Nitrite Ur Leukocyte Esterase Urine RBC Urine WBC Ur Squamous Epith Cells Urine Bacteria Stool Occult Blood Respiratory Panel Portillo See Note Adenovirus (Rapid PCR) Not Detected B.pert (TEM-PCR) Not Detected B.parapertussis DNA PCR Not Detected C. pneumoniae DNA (PCR) Not Detected Coronavirus OC43 (PCR) Not Detected Coronavirus HKU1 (PCR) Not Detected Coronavirus 229E (PCR) Not Detected COVID-19 ([facility]) COVID-19 Clin Com Coronavirus NL63 (PCR) Not Detected Human Metapneumovir PCR Not Detected Influenza A (RT-PCR) Not Detected Influenza B (RT-PCR) Not Detected M. pneumoniae (PCR) Not Detected Parainfluenza 1 (PCR) Not Detected Parainfluenza 2 (PCR) Not Detected Parainfluenza 3 (PCR) Not Detected Parainfluenza 4 (PCR) Not Detected RSV (PCR) Not Detected Entero/Rhino (PCR) Not Detected SARS-CoV-2 RNA (RT-PCR) Not Detected 08/14/20 08/14/20 08/14/20 05:59 07:56 08:37 WBC 22.0 H RBC 4.03 L Hgb 10.7 L Hct 35.3 L MCV 87.6 MCH 26.6 L MCHC 30.3 L RDW 16.4 H Plt Count 316 D MPV 12.7 H Immature Gran % (Auto) Neut % (Auto) Lymph % (Auto) Swisher % (Auto) Eos % (Auto) Baso % (Auto) Lymph # (Auto) Swisher # (Auto) Eos # (Auto) Baso # (Auto) Abs Immat Gran (auto) Absolute Neuts (auto) Absolute Nucleated RBC 0.000 Nucleated RBC % (auto) 0.0 Smear Tech's Comments Sodium 148 H Potassium 4.0 Chloride 121 H Carbon Dioxide 19 L Anion Gap 12 BUN 16 Creatinine 0.97 Estim Creat Clear Calc 56.3 Estimated GFR > 60 POC Glucose 76 Random Glucose 84 Lactic Acid Calcium 8.0 L Ferritin Total Bilirubin Direct Bilirubin AST ALT Alkaline Phosphatase B-Natriuretic Peptide Total Protein Albumin Lipase Vitamin B12 Folate Urine Color Urine Appearance Urine pH Ur Specific [place] Urine Protein Urine Glucose (UA) Urine Ketones Urine Blood Urine Nitrite Ur Leukocyte Esterase Urine RBC Urine WBC Ur Squamous Epith Cells Urine Bacteria Stool Occult Blood Respiratory Panel Portillo Adenovirus (Rapid PCR) B.pert (TEM-PCR) B.parapertussis DNA PCR C. pneumoniae DNA (PCR) Coronavirus OC43 (PCR) Coronavirus HKU1 (PCR) Coronavirus 229E (PCR) COVID-19 ([facility]) COVID-19 Clin Com Coronavirus NL63 (PCR) Human Metapneumovir PCR Influenza A (RT-PCR) Influenza B (RT-PCR) M. pneumoniae (PCR) Parainfluenza 1 (PCR) Parainfluenza 2 (PCR) Parainfluenza 3 (PCR) Parainfluenza 4 (PCR) RSV (PCR) Entero/Rhino (PCR) SARS-CoV-2 RNA (RT-PCR) 08/14/20 08/14/20 08/14/20 10:54 13:57 16:32 WBC RBC Hgb Hct MCV MCH MCHC RDW Plt Count MPV Immature Gran % (Auto) Neut % (Auto) Lymph % (Auto) Swisher % (Auto) Eos % (Auto) Baso % (Auto) Lymph # (Auto) Swisher # (Auto) Eos # (Auto) Baso # (Auto) Abs Immat Gran (auto) Absolute Neuts (auto) Absolute Nucleated RBC Nucleated RBC % (auto) Smear Tech's Comments Sodium 146 H Potassium 3.7 Chloride 119 H Carbon Dioxide 22 Anion Gap 9 L BUN 15 Creatinine 0.97 Estim Creat Clear Calc 56.3 Estimated GFR > 60 POC Glucose 99 110 Random Glucose 111 Lactic Acid Calcium 7.7 L Ferritin Total Bilirubin Direct Bilirubin AST ALT Alkaline Phosphatase B-Natriuretic Peptide Total Protein Albumin Lipase Vitamin B12 Folate Urine Color Urine Appearance Urine pH Ur Specific [place] Urine Protein Urine Glucose (UA) Urine Ketones Urine Blood Urine Nitrite Ur Leukocyte Esterase Urine RBC Urine WBC Ur Squamous Epith Cells Urine Bacteria Stool Occult Blood Respiratory Panel Portillo Adenovirus (Rapid PCR) B.pert (TEM-PCR) B.parapertussis DNA PCR C. pneumoniae DNA (PCR) Coronavirus OC43 (PCR) Coronavirus HKU1 (PCR) Coronavirus 229E (PCR) COVID-19 ([facility]) COVID-19 Clin Com Coronavirus NL63 (PCR) Human Metapneumovir PCR Influenza A (RT-PCR) Influenza B (RT-PCR) M. pneumoniae (PCR) Parainfluenza 1 (PCR) Parainfluenza 2 (PCR) Parainfluenza 3 (PCR) Parainfluenza 4 (PCR) RSV (PCR) Entero/Rhino (PCR) SARS-CoV-2 RNA (RT-PCR) 08/14/20 08/15/20 08/15/20 20:32 05:52 05:52 WBC 15.9 H RBC 3.81 L Hgb 10.2 L Hct 33.3 L MCV 87.4 MCH 26.8 L MCHC 30.6 L RDW 16.5 H Plt Count 315 MPV 12.1 Immature Gran % (Auto) Neut % (Auto) Lymph % (Auto) Swisher % (Auto) Eos % (Auto) Baso % (Auto) Lymph # (Auto) Swisher # (Auto) Eos # (Auto) Baso # (Auto) Abs Immat Gran (auto) Absolute Neuts (auto) Absolute Nucleated RBC 0.000 Nucleated RBC % (auto) 0.0 Smear Tech's Comments Sodium 142 Potassium 3.7 Chloride 117 H Carbon Dioxide 19 L Anion Gap 10 L BUN 16 Creatinine 1.03 Estim Creat Clear Calc 53.0 Estimated GFR > 60 POC Glucose 114 Random Glucose 104 Lactic Acid Calcium 7.4 L Ferritin Total Bilirubin Direct Bilirubin AST ALT Alkaline Phosphatase B-Natriuretic Peptide Total Protein Albumin Lipase Vitamin B12 Folate Urine Color Urine Appearance Urine pH Ur Specific [place] Urine Protein Urine Glucose (UA) Urine Ketones Urine Blood Urine Nitrite Ur Leukocyte Esterase Urine RBC Urine WBC Ur Squamous Epith Cells Urine Bacteria Stool Occult Blood Respiratory Panel Portillo Adenovirus (Rapid PCR) B.pert (TEM-PCR) B.parapertussis DNA PCR C. pneumoniae DNA (PCR) Coronavirus OC43 (PCR) Coronavirus HKU1 (PCR) Coronavirus 229E (PCR) COVID-19 ([facility]) COVID-19 Clin Com Coronavirus NL63 (PCR) Human Metapneumovir PCR Influenza A (RT-PCR) Influenza B (RT-PCR) M. pneumoniae (PCR) Parainfluenza 1 (PCR) Parainfluenza 2 (PCR) Parainfluenza 3 (PCR) Parainfluenza 4 (PCR) RSV (PCR) Entero/Rhino (PCR) SARS-CoV-2 RNA (RT-PCR) 08/15/20 08/15/20 07:40 11:30 WBC RBC Hgb Hct MCV MCH MCHC RDW Plt Count MPV Immature Gran % (Auto) Neut % (Auto) Lymph % (Auto) Swisher % (Auto) Eos % (Auto) Baso % (Auto) Lymph # (Auto) Swisher # (Auto) Eos # (Auto) Baso # (Auto) Abs Immat Gran (auto) Absolute Neuts (auto) Absolute Nucleated RBC Nucleated RBC % (auto) Smear Tech's Comments Sodium Potassium Chloride Carbon Dioxide Anion Gap BUN Creatinine Estim Creat Clear Calc Estimated GFR POC Glucose 108 126 H Random Glucose Lactic Acid Calcium Ferritin Total Bilirubin Direct Bilirubin AST ALT Alkaline Phosphatase B-Natriuretic Peptide Total Protein Albumin Lipase Vitamin B12 Folate Urine Color Urine Appearance Urine pH Ur Specific [place] Urine Protein Urine Glucose (UA) Urine Ketones Urine Blood Urine Nitrite Ur Leukocyte Esterase Urine RBC Urine WBC Ur Squamous Epith Cells Urine Bacteria Stool Occult Blood Respiratory Panel Portillo Adenovirus (Rapid PCR) B.pert (TEM-PCR) B.parapertussis DNA PCR C. pneumoniae DNA (PCR) Coronavirus OC43 (PCR) Coronavirus HKU1 (PCR) Coronavirus 229E (PCR) COVID-19 ([facility]) COVID-19 Clin Com Coronavirus NL63 (PCR) Human Metapneumovir PCR Influenza A (RT-PCR) Influenza B (RT-PCR) M. pneumoniae (PCR) Parainfluenza 1 (PCR) Parainfluenza 2 (PCR) Parainfluenza 3 (PCR) Parainfluenza 4 (PCR) RSV (PCR) Entero/Rhino (PCR) SARS-CoV-2 RNA (RT-PCR) Preliminary micro results at discharge 08/12/20 18:12 Blood Culture - Preliminary Blood - Venous No growth after 48 hours. 08/12/20 18:12 Blood Culture - Preliminary Blood - Venous No growth after 48 hours. Discharge Plan Discharge Patient Disposition: er [facility] Referrals: Physician,Unknown [Primary Care Provider] - Discharge Medications: New cefuroxime axetil 500 mg tablet 500 mg PO Q12H Qty: 10 RF: 0 azithromycin [Zithromax] 500 mg tablet 500 mg PO DAILY 3 Days Qty: 3 RF: 0 Continued allopurinol 100 mg tablet 100 mg PO DAILY RF: 0 atorvastatin 40 mg tablet 40 mg PO DAILY RF: 0 amlodipine 2.5 mg tablet 7.5 mg PO DAILY RF: 0 artificial tears solution 1 drp ophthalmic (eye) Q8-10H PRN (Reason: Dry Eye(S)) RF: 0 famotidine 20 mg tablet 20 mg PO BID RF: 0 escitalopram oxalate 5 mg tablet 5 mg PO DAILY RF: 0 Incruse Ellipta 62.5 mcg/actuation blister with device 1 inh inhalation DAILY RF: 0 cyanocobalamin (vitamin B-12) 1,000 mcg/ml 1 ml IM ONCE RF: 0 levothyroxine 88 mcg tablet 88 mcg PO SUTUWETHFRSA RF: 0 potassium chloride 10 mEq capsule, extended release 20 meq PO DAILY RF: 0 topiramate 25 mg tablet 25 mg PO BID RF: 0 quetiapine 100 mg tablet 100 mg PO TID RF: 0 tamsulosin 0.4 mg capsule 0.8 mg PO DAILY RF: 0 lithium carbonate 300 mg capsule 300 mg PO BID RF: 0 risperidone 1 mg tablet 1 mg PO BEDTIME RF: 0 sennosides [senna] 8.6 mg Tablet 8.6 mg PO DAILY PRN (Reason: Constipation) RF: 0 sodium bicarbonate 650 mg Tablet 650 mg PO TID Qty: 30 RF: 0 Discharge Orders: Discharge Order (Routine); Ordered 08/16/20 Ordered By: Rohit Moy Diet: advance to usual diet Activity on Discharge: As tolerated Visit Report Forms: Patient Portal Discharge page Care Plan Goals: To stay healthy and out of the hospital. Health Concerns: Confusion Plan of Treatment: Due to multiple reasons. Finish course of antibiotics.
--- NOTE | 2020-08-15 14:59 | MHC.CM.PN ---
CM HAS ATTEMPTED TO CONTACT [facility], MESSAGES LEFT FOR JULIAN RIOS AND [facility]PO IN ADMISSIONS WITH NO RESPONSE, CM ALSO ATTEMPTED TO CONTACT [employer] THROUGH [facility] WHEN REFERRAL WAS UPDATED TODAY, CM STILL AWAITING A RESPONSE.
[2020-08-15 15:04] LABS: COVID-19 Test Negative (Negative)
[2020-08-15] MEDS: 0.9 % Sodium Chloride Flush 3 ML SYRINGE IVFLUSH ×2 (15:36→23:54)
--- NOTE | 2020-08-15 15:42 | MHC.CM.PN ---
PER CONVERSATION [facility] [facility] [employer], THEY ARE UNABLE TO SECURE A QUARANTINE BED FOR TONIGHT, AND ASK THAT WE HOLD ONE MORE NIGHT. HOSPITALIST AGREES TO PLAN. PLAN IS TRANSFER BACK TO [facility] TOMORROW (08/16/20)
[2020-08-15 16:00] VITALS: BP 123/54; PULSE 70; RESP 16; TEMP 36.2; O2SAT 95
[2020-08-15 16:39] LABS: Glucose, Whole Blood 136 mg/dL (60-115)
--- NOTE | 2020-08-15 17:00 | P.PNIM_ITS ---
Subjective Subjective Date of Service: 08/15/20 Interval History: no issues no hypoxia Physical Exam Vital Signs: Vital Signs: Last Vital Signs Temp 97.1 F 08/15/20 16:00 Pulse 70 08/15/20 16:00 Resp 16 08/15/20 16:00 BP 123/54 L 08/15/20 16:00 Pulse Ox 95 08/15/20 16:00 Body Mass Index 27.3 Const: Other: General - no acute distress, appears comfortable Cardiovascular - regular rate and rhythm, S1-S2 Lungs - normal respiratory effort, clear to auscultation bilaterally, no wheezing Abdomen - soft, nontender, no rebound or guarding Extremities - no edema bilaterally Neuro - awake and alert, no focal deficits, disoriented Objective Data Current Medications Generic Name Dose Route Start Last Admin Trade Name Freq PRN Reason Stop Dose Admin Acetaminophen 650 mg 08/12/20 20:50 08/12/20 23:05 Acetaminophen 325 Mg Tablet PO 650 mg Q6H PRN Administration Pain, Mild (Pain Scale 1-3) Allopurinol 100 mg 08/15/20 09:00 08/15/20 08:45 Allopurinol 100 Mg Tablet PO 100 mg DAILY DANIEL Administration Amlodipine Besylate 7.5 mg 08/15/20 09:00 08/15/20 08:45 Amlodipine Besylate 2.5 Mg Tablet PO 7.5 mg DAILY DANIEL Administration Protocol Atorvastatin Calcium 40 mg 08/15/20 09:00 08/15/20 08:45 Atorvastatin Calcium 40 Mg Tablet PO 40 mg DAILY DANIEL Administration Docusate Sodium 100 mg 08/12/20 20:50 Docusate Sodium 100 Mg Capsule PO DAILY PRN Constipation Escitalopram Oxalate 5 mg 08/14/20 14:45 08/15/20 08:46 Escitalopram Oxalate 5 Mg Tablet PO 5 mg DAILY DANIEL Administration Famotidine 20 mg 08/14/20 21:00 08/15/20 08:46 Famotidine 20 Mg Tablet PO 20 mg BID DANIEL Administration Heparin Sodium (Porcine) 5,000 unit 08/12/20 21:00 08/15/20 08:44 Heparin Sodium,Porcine 5,000 Unit/Ml Vial SUBCUT 5,000 unit Q12H DANIEL Administration Ceftriaxone Sodium 1 gm/ 50 mls @ 100 mls/hr 08/12/20 21:00 08/14/20 21:22 Sodium Chloride IV Infused Q24H DANIEL Infusion Azithromycin 500 mg/ Sodium 250 mls @ 125 mls/hr 08/13/20 22:00 08/14/20 23:43 Chloride IV Infused Q24H [facility] Infusion Insulin Human Lispro 0 unit 08/13/20 07:30 08/15/20 15:37 Insulin Lispro 100 Unit/Ml 3 Ml Vial SUBCUT Not Given QIDACHS [facility] Protocol Levothyroxine Sodium 88 mcg 08/15/20 06:00 08/15/20 05:53 Levothyroxine Sodium 88 Mcg Tablet PO 88 mcg [id number] DANIEL Administration [place] Carbonate 300 mg 08/14/20 21:00 08/15/20 08:45 [place] Carbonate 300 Mg Capsule PO 300 mg BID [facility] Administration Ondansetron HCl 4 mg 08/12/20 20:50 Ondansetron Hcl 4 Mg/2 Ml Vial IVPUSH Q8H PRN Nausea and Vomiting Quetiapine Fumarate 100 mg 08/14/20 15:00 08/15/20 15:23 Quetiapine Fumarate 100 Mg Tablet PO 100 mg TID DANIEL Administration Risperidone 1 mg 08/14/20 21:00 08/15/20 00:29 Risperidone 1 Mg Tablet PO 1 mg BEDTIME [facility] Administration Senna 8.6 mg 08/14/20 14:22 Sennosides 8.6 Mg Tablet PO DAILY PRN Constipation Sodium Bicarbonate 650 mg 08/14/20 15:00 08/15/20 15:23 Sodium Bicarbonate 650 Mg Tablet PO 650 mg TID [facility] Administration Sodium Chloride 3 ml 08/13/20 00:00 08/15/20 15:36 0.9 % Sodium Chloride Flush 3 Ml Syringe IVFLUSH 3 ml QSHIFT [facility] Administration Tamsulosin HCl 0.8 mg 08/15/20 09:00 08/15/20 08:46 Tamsulosin Hcl 0.4 Mg Capsule PO 0.8 mg DAILY [facility] Administration Topiramate 25 mg 08/14/20 21:00 08/15/20 08:46 Topiramate 25 Mg Tablet PO 25 mg BID [facility] Administration Labs CBC & Chem 7: 08/15/20 05:52 08/15/20 05:52 Microbiology Microbiology Results: Microbiology 08/12/20 18:12 Blood - Venous Blood Culture - Preliminary No growth after 48 hours. 08/12/20 18:12 Blood - Venous Blood Culture - Preliminary No growth after 48 hours. 08/12/20 19:07 Urine Catheterized - Carlson Catheter Urine Culture - Final Assessment and Plan (1) CARLO (acute kidney injury): Status: Acute (2) Acute UTI: Status: Acute Assessment and Plan: This is a 84-year-old male who is a resident at [facility] and presents to the hospital with acute mental status changes. He is admitted for treatment of UTI and mild acute kidney injury. 1. Toxic/metabolic encephalopathy Due to urinary tract infection and mild acute kidney injury as well as mild hypernatremia improving, ? at baseline 2. Urinary tract infection ruled out urine cx negative 2. possible pneumonia covid neg x 2 rocephin/zithromax - ceftin/zithromax upon d/c 3. Mild acute kidney injury resolved with IVF 4. Hypernatremia resolved 5. HTN continue norvasc 6. Mood continue home meds 7. DM sliding scale diabetic diet Full Code DVT ppx, subcut. heparin dispo: medically stable, d/c back to LTC when bed available
[2020-08-15 19:50] VITALS: BP 111/47; PULSE 67; RESP 18; TEMP 36.4; O2SAT 97
[2020-08-15 20:45] LABS: Glucose, Whole Blood 98 mg/dL (60-115)
[2020-08-15] MEDS: cefTRIAXone sodium 1 GM in 0.9 % Sodium Chloride 50 ML IV (21:33)
[2020-08-15] MEDS: Azithromycin 500 MG in 0.9 % Sodium Chloride 250 ML 125 MG IV (22:41)
[2020-08-16] VITALS: BP 116/46; PULSE 71; RESP 18; TEMP 36.3; O2SAT 100
[2020-08-16 03:43] VITALS: BP 141/51; PULSE 69; RESP 18; TEMP 36.2; O2SAT 96
[2020-08-16] MEDS: Levothyroxine Sodium 88 MCG TABLET PO (05:33)
[2020-08-16 07:52] VITALS: BP 114/58; PULSE 66; RESP 15; TEMP 36.6; O2SAT 95
[2020-08-16] MEDS: Heparin Sodium,Porcine 5,000 UNIT/ML VIAL 5000 UNIT SUBCUT (07:59)
[2020-08-16] MEDS: Sodium Bicarbonate 650 MG TABLET PO (08:00)
[2020-08-16] MEDS: Tamsulosin HCL 0.4 MG CAPSULE 0.8 MG PO (08:00)
[2020-08-16] MEDS: Lithium Carbonate 300 MG CAPSULE PO (08:00)
[2020-08-16] MEDS: 0.9 % Sodium Chloride Flush 3 ML SYRINGE IVFLUSH (08:00)
[2020-08-16] MEDS: Atorvastatin Calcium 40 MG TABLET PO (08:00)
[2020-08-16] MEDS: QUEtiapine Fumarate 100 MG TABLET PO (08:01)
[2020-08-16] MEDS: Famotidine 20 MG TABLET PO (08:01)
[2020-08-16] MEDS: allopurinoL 100 MG TABLET PO (08:01)
[2020-08-16] MEDS: Topiramate 25 MG TABLET PO (08:01)
[2020-08-16] MEDS: Escitalopram Oxalate 5 MG TABLET PO (08:02)
[2020-08-16 08:06] LABS: Glucose, Whole Blood 84 mg/dL (60-115)
--- NOTE | 2020-08-16 08:37 | MHC.CM.PN ---
PATIENT TO RETURN TO [facility]IA [facility]. TIME SCHEDULED FOR 11:00. UNIT, RN, AND PATIENT'S GUARDIAN, TYLER ([phone]) MADE AWARE OF PLAN IMM 08/16 IN CHART.
== END 2020-08-16 11:30 | DRG 689 ==
LOC: HO.ED 19:46 → HO.S3 08-13 07:10
PROVIDERS: Admitting Provider Internal Medicine; Emergency Provider Emergency Medicine; Visit Provider Family Medicine
DX: N39.0 Urinary tract infection, site not specified (principal); G92 Toxic encephalopathy; J18.9 Pneumonia, unspecified organism; N17.9 Acute kidney failure, unspecified; K21.9 Gastro-esophageal reflux disease without esophagitis; M10.9 Gout, unspecified; R09.02 Hypoxemia; E87.5 Hyperkalemia; E11.9 Type 2 diabetes mellitus without complications; G30.9 Alzheimer's disease, unspecified; F02.80 Dementia in other diseases classified elsewhere, unspecified severity, without behavioral disturbance, psychotic disturbance, mood disturbance, and anxiety; E03.9 Hypothyroidism, unspecified; Z20.828 Contact with and (suspected) exposure to other viral communicable diseases; Z79.890 Hormone replacement therapy; Z79.899 Other long term (current) drug therapy
CPT/HCPCS: 36415; 70450; 71045; 80048; 80076; 81001; 82272; 82607; 82728; 82746; 82947; 83605; 83690; 83880; 85025; 85027; 87040; 87086; 87633; 87635; 93005; 96361; 96374; 99285; J0456; J0696

== ENCOUNTER 2020-09-30 05:46 | Inpatient (IN) | payer MEDICARE, MEDICAID, SELFPAY ==
[2020-09-30] VITALS (12 sets, daily range): BP systolic 95–134; BP diastolic 36–99; PULSE 67–78; RESP 14–20; TEMP 36–37.1; O2SAT 95–100; BMI 24.3
--- NOTE | ~2020-09-30 | CT_ITS ---
EXAMINATION: CT CHEST AND ABDOMEN WITHOUT IV CONTRAST CLINICAL INFORMATION: Weakness. Elevated white blood cell count. Cough. COMPARISON: Previous chest x-ray from earlier earlier the same day, chest CT May 2019 and abdominal and pelvic CT April 2018 TECHNIQUE: Axial images through the chest and abdomen without oral or IV contrast. Sagittal and coronal reconstructions on the technologist workstation were performed. Patient dose 6 7 6 mg/cm. FINDINGS: Chest: There are increased reticular markings bronchial wall thickening and increased parenchymal attenuation seen in the left upper and lower and right lower lobe suggestive of pneumonia. There is no pleural effusion or pneumothorax. The heart is upper normal in size. There is a small pericardial effusion. There is coronary artery calcification and aortic valve calcification. The thoracic aorta is normal in caliber. There are small mediastinal lymph nodes. No enlarged lymph nodes are seen. No chest wall mass or enlarged axillary lymph nodes are seen. ABDOMEN: The liver is normal appearing. The gallbladder is not identified. There is no biliary duct dilatation. The pancreas is normal. There is a small calcification in the spleen. Spleen is otherwise normal. The adrenal glands are normal. There is a 3 mm left upper pole renal stone. The kidneys are otherwise normal. There is diverticulosis of the colon. There is stool throughout the colon suggestive of constipation. Visualized small and large bowel is otherwise unremarkable. The visualized appendix is unremarkable. There is evidence of severe atherosclerotic disease. Review at bone windows demonstrates degenerative changes of the spine. There are degenerative changes at the shoulders. There is slight loss of height versus Schmorl's nodes of the L2-L3 and L4 vertebral bodies. There is a subcutaneous low-attenuation lesion in the upper back measuring 2 x 2.5 cm probably representing a sebaceous cyst or thyroid. CT/CT abdomen wo con IMPRESSION: Left upper and bilateral lower lobe pneumonia. Severe coronary artery calcification. Aortic valve calcification. Abdomen and pelvis: Diverticulosis. No evidence of diverticulitis. Stool throughout the colon suggestive of constipation. Small nonobstructing left renal stone. Severe atherosclerotic disease.
--- NOTE | ~2020-09-30 | XR_ITS ---
EXAMINATION: XR CHEST CLINICAL INFORMATION: Shortness of breath COMPARISON: 08/13/2020 TECHNIQUE: Frontal view of the chest was obtained. FINDINGS: Cardiac leads overlie the chest. The lungs are well expanded. Patchy airspace opacities are seen bilaterally, greatest in the left suprahilar region. No pneumothorax. No pleural effusion. The cardiomediastinal silhouette is unchanged, with a tortuous and calcified aorta. Degenerative changes of both shoulders. XR/XR chest 1V IMPRESSION: Increased patchy bilateral airspace opacities, particularly in the left suprahilar region. This could be infectious or inflammatory.
--- NOTE | ~2020-09-30 | CT_ITS ---
EXAMINATION: CT HEAD WITHOUT CONTRAST CLINICAL INFORMATION: Acute mental status change. Confusion. COMPARISON: Previous head CT most recent August 2020 TECHNIQUE: Contiguous axial imaging was performed from the skull base to vertex without intravenous administration of contrast. This CT examination was performed using dose optimization techniques as appropriate, variously including the following: *Automated exposure control *Adjustment of mA and/or kV according to patient size (this includes techniques or standardized protocols for targeted exams where dose is matched to indication/reason for exam; i.e. extremities or head) *Use of iterative reconstruction technique DLP: 1669 mGy-cm FINDINGS: Exam is limited due to motion artifact. There is a new mixed attenuation extra-axial fluid collection adjacent to the left frontal and parietal lobes. The majority of this is low in attenuation. There are some linear areas of high attenuation suggestive of more recent hemorrhage or organizing membrane. This is new in the interval from August 2020 exam. This measures maximum 1.6 cm in thickness and causes slight mass effect on the left frontal lobe. No midline shift is seen. No other evidence of an extra-axial collection is seen. No other evidence of hemorrhage is seen. The ventricles and extra-axial CSF spaces are prominent suggestive of generalized atrophy. There is nonspecific periventricular white matter disease. No mass, mass effect or infarct is seen. No skull fracture is seen. Visualized paranasal sinuses, mastoid air cells and middle ears are clear. CT/CT head/brain wo con IMPRESSION: Limited exam due to motion artifact. New mixed attenuation extra-axial fluid collection adjacent to the left frontal and parietal lobes suggestive of a subdural hematoma. The majority of this is low attenuation however there are some areas of linear high attenuation suggestive of more recent hemorrhage or organizing membrane. This measures 1.6 cm in greatest thickness and causes slight mass effect on the left frontal lobe. Generalized atrophy and nonspecific periventricular white matter disease. Findings were communicated to Dr. kidd by telephone on 10/04/2020 at 3:24 PM.
--- NOTE | 2020-09-30 06:10 | PC.NURSE ---
pt sat 100% on 4l . fio2 titrated to 2l and sat 97% rr even and reg. pt hob elevated with good effect.
--- NOTE | 2020-09-30 06:12 | ECG_ITS ---
Test Reason : HYPOXIA Blood Pressure : / mmHG Vent. Rate : 069 BPM Atrial Rate : 069 BPM P-R Int : 216 ms QRS Dur : 140 ms QT Int : 482 ms P-R-T Axes : 051 -41 036 degrees QTc Int : 516 ms Sinus rhythm with 1st degree A-V block with Premature ventricular complexes Left axis deviation Right bundle branch block Abnormal ECG When compared with ECG of 12-AUG-2020 18:35, Premature ventricular complexes present Referred By: Leonor Cavanaugh Electronically Signed By:ANA QUINONES
--- NOTE | 2020-09-30 06:25 | ED_ITS ---
HPI - URI/Sore Throat General Chief Complaint: Upper Respiratory Symptoms Stated Complaint: DIFF BREATHING,RECENT PNA DX PER SNF Time Seen by Provider: 09/30/20 06:12 Related Data Home Medications Medication Instructions Recorded Confirmed Incruse Ellipta 1 inh INHALATION DAILY 07/14/20 08/12/20 allopurinol 100 mg PO DAILY 07/14/20 08/12/20 amlodipine 7.5 mg PO DAILY 07/14/20 08/12/20 artificial tears solution 1 drp OPHTHALMIC (EYE) Q8-10H PRN 07/14/20 08/12/20 atorvastatin 40 mg PO DAILY 07/14/20 08/12/20 cyanocobalamin (vitamin B-12) 1 ml IM ONCE 07/14/20 08/12/20 escitalopram oxalate 5 mg PO DAILY 07/14/20 08/12/20 famotidine 20 mg PO BID 07/14/20 08/12/20 levothyroxine 88 mcg PO SUTUWETHFRSA 07/14/20 08/12/20 lithium carbonate 300 mg PO BID 07/14/20 08/12/20 potassium chloride 20 meq PO DAILY 07/14/20 08/12/20 quetiapine 100 mg PO TID 07/14/20 08/12/20 risperidone 1 mg PO BEDTIME 07/14/20 08/12/20 tamsulosin 0.8 mg PO DAILY 07/14/20 08/12/20 topiramate 25 mg PO BID 07/14/20 08/12/20 sennosides [senna] 8.6 mg PO DAILY PRN 07/15/20 08/12/20 Previous Rx's Medication Instructions Recorded sodium bicarbonate 650 mg PO TID #30 tab 07/17/20 azithromycin [Zithromax] 500 mg PO DAILY 3 Days #3 tab 08/15/20 cefuroxime axetil 500 mg PO Q12H #10 tab 08/15/20 Allergies Allergy/AdvReac Type Severity Reaction Status Date / Time No Known Allergies Allergy Verified 08/12/20 16:36 [No Known Allergies*] [facility] Past Medical History Medical History Alzheimer disease Chronic pain COPD (chronic obstructive pulmonary disease) COVID-19 CVA (cerebral vascular accident) Dysphagia GERD (gastroesophageal reflux disease) Gout Hypokalemia Hypothyroid Pneumonia Social History Social History Household Members: None Housing: [facility] Alcohol intake: never Smoking Status: Unknown if ever smoked Advance Directives: No Advance Directives Information Provided: No service: No Current occupational status: disabled Physical Exam Vital Signs: Vital Signs: Last Vital Signs Temp 98.8 F 09/30/20 05:57 Pulse 75 09/30/20 05:57 Resp 20 09/30/20 05:57 BP 111/52 L 09/30/20 05:57 Pulse Ox 100 09/30/20 05:57 Body Mass Index 24.3 Discharge Plan Discharge Prescriptions: No [facility] allopurinol 100 mg tablet 100 mg PO DAILY RF: 0 atorvastatin 40 mg tablet 40 mg PO DAILY RF: 0 amlodipine 2.5 mg tablet 7.5 mg PO DAILY RF: 0 artificial tears solution 1 drp ophthalmic (eye) Q8-10H PRN (Reason: Dry Eye(S)) RF: 0 famotidine 20 mg tablet 20 mg PO BID RF: 0 escitalopram oxalate 5 mg tablet 5 mg PO DAILY RF: 0 Incruse Ellipta 62.5 mcg/actuation blister with device 1 inh inhalation DAILY RF: 0 cyanocobalamin (vitamin B-12) 1,000 mcg/ml 1 ml IM ONCE RF: 0 levothyroxine 88 mcg tablet 88 mcg PO SUTUWETHFRSA RF: 0 potassium chloride 10 mEq capsule, extended release 20 meq PO DAILY RF: 0 topiramate 25 mg tablet 25 mg PO BID RF: 0 quetiapine 100 mg tablet 100 mg PO TID RF: 0 tamsulosin 0.4 mg capsule 0.8 mg PO DAILY RF: 0 lithium carbonate 300 mg capsule 300 mg PO BID RF: 0 risperidone 1 mg tablet 1 mg PO BEDTIME RF: 0 sennosides [senna] 8.6 mg Tablet 8.6 mg PO DAILY PRN (Reason: Constipation) RF: 0 sodium bicarbonate 650 mg Tablet 650 mg PO TID Qty: 30 RF: 0 cefuroxime axetil 500 mg tablet 500 mg PO Q12H Qty: 10 RF: 0 azithromycin [Zithromax] 500 mg tablet 500 mg PO DAILY 3 Days Qty: 3 RF: 0
[2020-09-30 07:25] LABS: Lactic Acid 1.2 mmol/L (0.5-2.0)
--- NOTE | 2020-09-30 08:26 | ED_ITS ---
HPI - SOB/Dyspnea General Chief Complaint: Upper Respiratory Symptoms Stated Complaint: DIFF BREATHING,RECENT PNA DX PER SNF Time Seen by Provider: 09/30/20 06:12 Source: EMS and other Mode of arrival: EMS History of Present Illness HPI Narrative: This is an 85-year-old male who is brought in by EMS with significant past medical history of advanced dementia and recent diagnosis by the long-term facility of pneumonia and has recently been on a course of doxycycline. However, EMS reports that this morning staff noted that he was ?wheezy, with SpO2-80% on room air?. Patient was placed on 4 L nasal cannula EN route and sats improved to 99% as per EMS Related Data Home Medications Medication Instructions Recorded Confirmed Incruse Ellipta 1 inh INHALATION DAILY 07/14/20 08/12/20 allopurinol 100 mg PO DAILY 07/14/20 08/12/20 amlodipine 7.5 mg PO DAILY 07/14/20 08/12/20 artificial tears solution 1 drp OPHTHALMIC (EYE) Q8-10H PRN 07/14/20 08/12/20 atorvastatin 40 mg PO DAILY 07/14/20 08/12/20 cyanocobalamin (vitamin B-12) 1 ml IM ONCE 07/14/20 08/12/20 escitalopram oxalate 5 mg PO DAILY 07/14/20 08/12/20 famotidine 20 mg PO BID 07/14/20 08/12/20 levothyroxine 88 mcg PO SUTUWETHFRSA 07/14/20 08/12/20 lithium carbonate 300 mg PO BID 07/14/20 08/12/20 potassium chloride 20 meq PO DAILY 07/14/20 08/12/20 quetiapine 100 mg PO TID 07/14/20 08/12/20 risperidone 1 mg PO BEDTIME 07/14/20 08/12/20 tamsulosin 0.8 mg PO DAILY 07/14/20 08/12/20 topiramate 25 mg PO BID 07/14/20 08/12/20 sennosides [senna] 8.6 mg PO DAILY PRN 07/15/20 08/12/20 Previous Rx's Medication Instructions Recorded sodium bicarbonate 650 mg PO TID #30 tab 07/17/20 azithromycin [Zithromax] 500 mg PO DAILY 3 Days #3 tab 08/15/20 cefuroxime axetil 500 mg PO Q12H #10 tab 08/15/20 Allergies Allergy/AdvReac Type Severity Reaction Status Date / Time No Known Allergies Allergy Verified 08/12/20 16:36 [No Known Allergies*] Review of Systems Review of Systems: Yes Unobtainable due to mental condition [facility] Past Medical History Source: nursing notes reviewed Medical History Alzheimer disease Chronic pain COPD (chronic obstructive pulmonary disease) COVID-19 CVA (cerebral vascular accident) Dysphagia GERD (gastroesophageal reflux disease) Gout Hypokalemia Hypothyroid Leukocytosis Normocytic anemia Pneumonia Social History Social History Household Members: None Housing: [facility] Alcohol intake: never Smoking Status: Unknown if ever smoked Advance Directives: No Advance Directives Information Provided: No service: No Current occupational status: disabled Physical Exam Vital Signs: Vital Signs: Last Vital Signs Temp 98.8 F 09/30/20 05:57 Pulse 72 09/30/20 08:00 Resp 15 09/30/20 08:00 BP 95/40 L 09/30/20 08:00 Pulse Ox 100 09/30/20 08:00 Body Mass Index 24.3 VITAL SIGNS: Reviewed. GENERAL: Cachectic, lethargic HEAD: Normocephalic/atraumatic, EYES: PERRLA, EOMI OROPHARYNX: no oral lesions noted, posterior pharynx clear, dry mucosa NECK: Supple, no adenopathy LUNGS: Normal breath sounds, rales, no wheeze or ronchi. SpO2<99> on 2 L nasal cannula CARDIOVASCULAR: Regular rate and rhythm without noted murmurs ABDOMEN: Soft, non-tender, non-distended with bowel sounds. SKIN: Inspection of the skin reveals no rashes NEUROLOGIC: Drowsy, easily arousable by voice Course Course Course Narrative: This is a 85-year-old male with history and clinical presentation most suggestive of failed p.o. treatment of pneumonia. Patient is oxygenating well on 2 L of nasal cannula. Signed out to Dr Dunn: f/u labs, UA, BNP MDM - SOB/Dyspnea Lab Data Result diagrams: 09/30/20 06:40 09/30/20 06:40 Labs: Lab Results 09/30/20 09/30/20 Range/Units 06:27 06:40 Lactic Acid 1.2 (0.5-2.0) mmol/L Coronavirus (PCR) NEGATIVE (Negative) Influenza Type A (PCR) NEGATIVE (Negative) Influenza Type B (PCR) NEGATIVE (Negative) RSV RNA Qual (PCR) NEGATIVE (Negative) ECG Data Attestation: I personally reviewed and interpreted this ECG as follows: Prior ECG tracings: available for review (08/12/2020 no significant changes on comparison) Interpretation: Sinus rhythm with RBBB, HR-69, no evidence of ischemia, AK and QRS are mildly prolonged Discharge Plan Discharge Prescriptions: No [facility] allopurinol 100 mg tablet 100 mg PO DAILY RF: 0 atorvastatin 40 mg tablet 40 mg PO DAILY RF: 0 amlodipine 2.5 mg tablet 7.5 mg PO DAILY RF: 0 artificial tears solution 1 drp ophthalmic (eye) Q8-10H PRN (Reason: Dry Eye(S)) RF: 0 famotidine 20 mg tablet 20 mg PO BID RF: 0 escitalopram oxalate 5 mg tablet 5 mg PO DAILY RF: 0 Incruse Ellipta 62.5 mcg/actuation blister with device 1 inh inhalation DAILY RF: 0 cyanocobalamin (vitamin B-12) 1,000 mcg/ml 1 ml IM ONCE RF: 0 levothyroxine 88 mcg tablet 88 mcg PO SUTUWETHFRSA RF: 0 potassium chloride 10 mEq capsule, extended release 20 meq PO DAILY RF: 0 topiramate 25 mg tablet 25 mg PO BID RF: 0 quetiapine 100 mg tablet 100 mg PO TID RF: 0 tamsulosin 0.4 mg capsule 0.8 mg PO DAILY RF: 0 lithium carbonate 300 mg capsule 300 mg PO BID RF: 0 risperidone 1 mg tablet 1 mg PO BEDTIME RF: 0 sennosides [senna] 8.6 mg Tablet 8.6 mg PO DAILY PRN (Reason: Constipation) RF: 0 sodium bicarbonate 650 mg Tablet 650 mg PO TID Qty: 30 RF: 0 cefuroxime axetil 500 mg tablet 500 mg PO Q12H Qty: 10 RF: 0 azithromycin [Zithromax] 500 mg tablet 500 mg PO DAILY 3 Days Qty: 3 RF: 0
[2020-09-30 08:28] LABS: Influenza A PCR NEGATIVE (Negative); Influenza B PCR NEGATIVE (Negative); Resp Syncy Virus RNA Qual PCR NEGATIVE (Negative); SARS COV2 PCR INHOUSE NEGATIVE (Negative)
[2020-09-30 08:43] LABS: Basophils Absolute Auto 0.1 X10*3/uL (0.0-0.2); Basophils Percent Auto 0.3 % (0-2); Eosinophils Absolute Auto 0.2 X10*3/uL (0.0-0.4); Eosinophils Percent Auto 0.7 % (0-4); Hematocrit 29.4 % (42-52); Hemoglobin 9.1 g/dl (14.0-18.0); Imm Gran Abs Auto 0.36 X10*3/uL (0.00-0.03); Lymphocytes Absolute Auto 2.9 X10*3/uL (1.2-4.9); Lymphocytes Percent Auto 7.9 % (20-40); MANUAL DIFF FLAG SCAN; Mean Corpuscular Hemoglobin 25.6 pg (27.0-33.0); Mean Corpuscular Volume 82.8 fL (80-98); Mean Platelet Volume 11.1 fL (9.4-12.4); Monocytes Absolute Auto 1.8 X10*3/uL (0.1-1.2); Monocytes Percent Auto 4.8 % (2-11); Neutrophils Absolute Auto 31.5 X10*3/uL (2.0-8.3); Neutrophils Percent Auto 85.3 % (45-73); Platelet Count 374 X10*3/uL (160-400); Red Blood Count 3.55 X10*6/uL (4.60-5.80); Red Cell Distribution Width 17.2 % (11.0-16.0); SCAN SMEAR FLAG 1
[2020-09-30 08:55] LABS: White Blood Count 36.9 X10*3/uL (4.8-10.8)
[2020-09-30 08:58] LABS: Glucose Urine UA NEG (NEG); Leukocyte Esterase Urine NEG (NEG); Nitrite Urine NEG (NEG); PH 6.5 (5.0-8.0); Specific Gravity - Urine <= 1.005 (1.005-1.025); Urine Blood TRACE (NEG); Urine Ketones NEG (NEG); Urine Protein NEG (NEG-TRACE)
[2020-09-30 09:01] LABS: Appearance Urine CLEAR; Color Urine YELLOW
[2020-09-30 09:05] LABS: SLIDE REVIEW VERIFIED
[2020-09-30 09:09] LABS: WBC Urine 0-2 /HPF (0-4)
[2020-09-30] MEDS: Piperacillin Sodium/Tazobactam 3.375 GM in 0.9 % Sodium Chloride 50 ML IV ×2 (09:17→18:16)
[2020-09-30] MEDS: 0.9 % Sodium Chloride 1,000 ML 999 ML IVCONT (09:17)
[2020-09-30 09:24] LABS: Alanine Aminotransferase 16 U/L (0-40); Albumin Level 2.6 g/dL (3.5-5.0); Alkaline Phosphatase 98 U/L (39-117); Anion Gap 10 (12-20); Aspartate Amino Transferase 21 U/L (5-37); Bilirubin Total 0.7 mg/dL (0.0-1.0); Blood Urea Nitrogen 33 mg/dL (9-16); Calcium 8.5 mg/dL (8.4-10.2); Carbon Dioxide 24 mmol/L (22-29); Chloride 110 mmol/L (96-108); Creatinine Clr Calc Pharmacy 43.5; Estimated Glomerular Filt Rate 59; Glucose Random 98 mg/dL (60-115); Magnesium 1.8 mg/dL (1.6-2.6); Potassium 4.3 mmol/L (3.3-5.1); Sodium 140 mmol/L (135-145); Total Protein 7.7 g/dL (6.5-8.0)
[2020-09-30 09:37] LABS: B Type Natriuretic Peptide 111 pg/mL (<100)
[2020-09-30] MEDS: vancomycin HCL 750 MG in 0.9 % Sodium Chloride 250 ML 265 MG IV (10:44)
--- NOTE | 2020-09-30 11:36 | P.HPHOSP_ITS ---
History of Present Illness Date of Service: 09/30/20 Chief Complaint: Difficulty breathing, increased wheezing, hypoxemia An 85 years old male with PMH of Alzheimer, it TBI, dysphagia, type 2 diabetes, CAD, COPD among others who presents to the hospital from [facility] after noticed to have difficulty breathing, wheezing and low oxygen level. Patient unable to provide any history so it was taken mainly from ED provider and EMS notes. The patient was noticed to have a drop in his home oxygen level to 80s on room associated with difficulty breathing and wheezes. He was evaluated by EMS and brought to the hospital. In emergency as CT scan of the chest was consistent with multiple lobe pneumonia is of upper and lower lobes associated with significantly elevated WBCs. O2 sat was acceptable at room air. Admitted for further evaluation and treatment. Review of Systems Constitutional: Comments: Patient nonverbal and unable to provide any meaningful history PMFSH Medical History Alzheimer disease Chronic pain COPD (chronic obstructive pulmonary disease) COVID-19 CVA (cerebral vascular accident) Dysphagia GERD (gastroesophageal reflux disease) Gout Hypokalemia Hypothyroid Leukocytosis Normocytic anemia Pneumonia Social History Household Members: None Housing: [facility] Alcohol intake: never Smoking Status: Unknown if ever smoked Advance Directives: No Advance Directives Information Provided: No service: No Current occupational status: disabled Meds Allergies Allergy/AdvReac Type Severity Reaction Status Date / Time No Known Allergies Allergy Verified 08/12/20 16:36 [No Known Allergies*] Active Medications: Current Medications Generic Name Dose Route Start Last Admin Trade Name Freq PRN Reason Stop Dose Admin Pharmacy Consult 1 each 09/30/20 08:59 Consult Rx Vancomycin Dosing MISCELLANE DAILY PRN Consult order Pharmacy Consult 1 each 09/30/20 09:00 Consult Rx Perform Med Rec MISCELLANE ONCE PRN Consult order Home Medications Medication Instructions Recorded Confirmed Last Taken Type Incruse Ellipta 1 inh INHALATION DAILY 07/14/20 09/30/20 Unknown History allopurinol 100 mg PO DAILY 07/14/20 09/30/20 Unknown History amlodipine 2.5 mg PO DAILY 07/14/20 09/30/20 Unknown History atorvastatin 40 mg PO BEDTIME 07/14/20 09/30/20 Unknown History escitalopram oxalate 2.5 mg PO DAILY 07/14/20 09/30/20 Unknown History famotidine 20 mg PO BID 07/14/20 09/30/20 Unknown History levothyroxine 88 mcg PO SUTUWETHFRSA 07/14/20 09/30/20 Unknown History lithium carbonate 300 mg PO BID 07/14/20 09/30/20 Unknown History potassium chloride 20 meq PO DAILY 07/14/20 09/30/20 Unknown History quetiapine 100 mg PO TID 07/14/20 09/30/20 Unknown History risperidone 1 mg PO BEDTIME 07/14/20 09/30/20 Unknown History tamsulosin 0.8 mg PO DAILY@1700 07/14/20 09/30/20 Unknown History topiramate 25 mg PO BID 07/14/20 09/30/20 Unknown History sennosides [senna] 8.6 mg PO Q24H PRN 07/15/20 09/30/20 Unknown History Calazime Skin Protectant Paste 1 applic TOPICAL QSHIFT 09/30/20 09/30/20 Unknown History acetaminophen 650 mg PO Q4H PRN 09/30/20 09/30/20 Unknown History amlodipine 5 mg PO DAILY 09/30/20 09/30/20 Unknown History bisacodyl 5 mg PO Q24H PRN 09/30/20 09/30/20 Unknown History bisacodyl 10 mg [place] Q24H PRN 09/30/20 09/30/20 Unknown History cyanocobalamin (vitamin B-12) 1,000 mcg IM Q42D 09/30/20 09/30/20 Unknown History doxycycline hyclate 100 mg PO BID 09/30/20 09/30/20 Unknown History ibuprofen 600 mg PO Q6H PRN 09/30/20 09/30/20 Unknown History lanolin knaebms-rx-z.pet-ceres 1 appl TOPICAL Q1H PRN 09/30/20 09/30/20 Unknown History [Hydrocerin (with petrolatum)] lanolin tezzqyv-vh-l.pet-ceres 1 appl TOPICAL QPM 09/30/20 09/30/20 Unknown History [Hydrocerin (with petrolatum)] loperamide 2 mg PO Q6H PRN 09/30/20 09/30/20 Unknown History polyvinyl alcohol [Artificial 1 drp OPHTHALMIC (EYE) Q8H PRN 09/30/20 09/30/20 Unknown History Tears (polyvin alc)] sodium chloride [Deep Sea Nasal] 2 spray INTRANASAL Q4H PRN 09/30/20 09/30/20 Unknown History Physical Exam Vital Signs and Narrative: Vital Signs: Last Vital Signs Temp 98.8 F 09/30/20 05:57 Pulse 75 09/30/20 08:49 Resp 18 09/30/20 08:49 BP 128/48 L 09/30/20 08:49 Pulse Ox 100 09/30/20 08:49 Body Mass Index 24.3 Const: Other: Constitutional : Alert, nonverbal, not in distress Neck : Normal inspection, Supple Cardiovascular : RRR, S1 S2, no lower extremity edema Respiratory : Good bilateral air entry, bilateral basal crackles mainly on right-side, bilateral scattered wheezes or rhonchi Gastrointestinal: soft, lax, Normal bowel sounds, Non tender Skin : Warm/Dry, No rash Neurological : Alert & nonverbal, No focal deficit Results Labs CBC and Chem 7: 09/30/20 08:32 09/30/20 08:32 Labs: Laboratory Results - last 24 hr 09/30/20 09/30/20 09/30/20 06:27 06:40 08:32 MCV 82.8 MCH 25.6 L MCHC 31.0 RDW 17.2 H Plt Count 374 MPV 11.1 Immature Gran % (Auto) 1.0 H Neut % (Auto) 85.3 H Lymph % (Auto) 7.9 L [place] % (Auto) 4.8 Eos % (Auto) 0.7 Baso % (Auto) 0.3 Lymph # (Auto) 2.9 [place] # (Auto) 1.8 H Eos # (Auto) 0.2 Baso # (Auto) 0.1 Abs Immat Gran (auto) 0.36 H Absolute Neuts (auto) 31.5 H Absolute Nucleated RBC 0.000 Nucleated RBC % (auto) 0.0 Smear Tech's Comments VERIFIED Anion Gap Estim Creat Clear Calc Estimated GFR Random Glucose Lactic Acid 1.2 Calcium Magnesium Total Bilirubin AST ALT Alkaline Phosphatase B-Natriuretic Peptide Total Protein Albumin Urine Color Urine Appearance Urine pH Ur Specific [place] Urine Protein Urine Glucose (UA) Urine Ketones Urine Blood Urine Nitrite Ur Leukocyte Esterase Urine RBC Urine WBC Ur Squamous Epith Cells Urine Bacteria Coronavirus (PCR) NEGATIVE Influenza Type A (PCR) NEGATIVE Influenza Type B (PCR) NEGATIVE RSV RNA Qual (PCR) NEGATIVE 09/30/20 09/30/20 09/30/20 08:32 08:32 08:45 MCV MCH MCHC RDW Plt Count MPV Immature Gran % (Auto) Neut % (Auto) Lymph % (Auto) [place] % (Auto) Eos % (Auto) Baso % (Auto) Lymph # (Auto) [place] # (Auto) Eos # (Auto) Baso # (Auto) Abs Immat Gran (auto) Absolute Neuts (auto) Absolute Nucleated RBC Nucleated RBC % (auto) Smear Tech's Comments Anion Gap 10 L Estim Creat Clear Calc 43.5 Estimated GFR 59 Random Glucose 98 Lactic Acid Calcium 8.5 D Magnesium 1.8 Total Bilirubin 0.7 AST 21 D ALT 16 Alkaline Phosphatase 98 D B-Natriuretic Peptide 111 H Total Protein 7.7 Albumin 2.6 L Urine Color YELLOW Urine Appearance CLEAR Urine pH 6.5 Ur Specific [place] <= 1.005 Urine Protein NEG Urine Glucose (UA) NEG Urine Ketones NEG Urine Blood TRACE Urine Nitrite NEG Ur Leukocyte Esterase NEG Urine RBC 5-9 H Urine WBC 0-2 Ur Squamous Epith Cells NONE Urine Bacteria NONE Coronavirus (PCR) Influenza Type A (PCR) Influenza Type B (PCR) RSV RNA Qual (PCR) Imaging Radiologist's Impressions: Impressions Chest X-Ray 09/30/20 06:12 IMPRESSION: Increased patchy bilateral airspace opacities, particularly in the left suprahilar region. This could be infectious or inflammatory. Abdomen CT 09/30/20 08:59 IMPRESSION: Left upper and bilateral lower lobe pneumonia. Severe coronary artery calcification. Aortic valve calcification. Abdomen and pelvis: Diverticulosis. No evidence of diverticulitis. Stool throughout the colon suggestive of constipation. Small nonobstructing left renal stone. Severe atherosclerotic disease. Chest CT 09/30/20 08:59 IMPRESSION: Left upper and bilateral lower lobe pneumonia. Severe coronary artery calcification. Aortic valve calcification. Abdomen and pelvis: Diverticulosis. No evidence of diverticulitis. Stool throughout the colon suggestive of constipation. Small nonobstructing left renal stone. Severe atherosclerotic disease. Assessment and Plan (1) Hypoxia: Status: Acute (2) Leukocytosis: Qualifiers: Leukocytosis type: unspecified Qualified Code(s): D72.829 - Elevated white blood cell count, unspecified Status: Acute (3) Multifocal pneumonia: Status: Acute (4) Swallowing problem: Status: Acute 84 y/o male with an extended PMHX who presented from [facility] due to shortness of breath, hypoxia and altered mentation Multifocal pneumonia Reported hypoxemia, O2 in 90s on 2 L of oxygen not septic CT scan of the chest consistent with multifocal pneumonia Blood culture sent Negative COVID the test Started on IV Zosyn To get ID evaluation Metabolic encephalopathy Likely secondary to infection continue to monitor and avoid medications that would affect his mental status decrease Seroquel from 100 tid to 25 tid. COPD exacerbation wheezing, not requiring much O2 supplement Start bronchodilator nebs Hold on steroids with acute infection Gout Continue allopurinol Alzheimer disease continue with escitalopram home dose continue with lithium home dose continue with risperidone home dose BPH Continue Flomax DVT PPX Heparin SC
[2020-09-30] MEDS: Albuterol/Iprat 2.5/0.5MG 3 ML AMPUL.NEB INHALE ×2 (13:47→19:47)
--- NOTE | 2020-09-30 15:22 | PC.NURSE ---
pr ripped out IV, very hard stick per last shift nurse had to use US. pt is very concerned from baseline. Pt not following commands ripping off oxygen.
--- NOTE | 2020-09-30 15:55 | PC.NURSE ---
attempt to call med surg for report.
--- NOTE | 2020-09-30 16:22 | PC.NURSE ---
pt cleaned due to incontinence. multiple attempts to establish IV have failed. Nurse on third floor aware at transport.
[2020-09-30] MEDS: Sodium Bicarbonate 650 MG TABLET PO (17:44)
[2020-09-30] MEDS: Tamsulosin HCL 0.4 MG CAPSULE 0.8 MG PO (17:44)
[2020-09-30] MEDS: Enoxaparin Sodium 40 MG/0.4 ML SYRINGE SUBCUT (17:44)
[2020-09-30] MEDS: QUEtiapine Fumarate 25 MG TABLET PO (17:50)
[2020-09-30] MEDS: Dextrose 5 % and 0.9 % NaCl 1,000 ML 60 ML IVCONT (18:14)
[2020-09-30] MEDS: Cyanocobalamin (Vitamin B-12) 1,000 MCG/ML VIAL 1000 MCG IM (18:20)
[2020-10-01] VITALS (9 sets, daily range): BP systolic 126–158; BP diastolic 43–67; PULSE 65–90; RESP 15–21; TEMP 36–37; O2SAT 93–100
[2020-10-01] MEDS: Piperacillin Sodium/Tazobactam 3.375 GM in 0.9 % Sodium Chloride 50 ML IV ×4 (05:47→17:45)
[2020-10-01 05:53] LABS: MANUAL DIFF FLAG NO
[2020-10-01 06:05] LABS: Basophils Percent Auto 0.2 % (0-2); Eosinophils Absolute Auto 0.4 X10*3/uL (0.0-0.4); Eosinophils Percent Auto 2.1 % (0-4); Hematocrit 29.4 % (42-52); Hemoglobin 8.9 g/dl (14.0-18.0); Imm Gran Abs Auto 0.09 X10*3/uL (0.00-0.03); Imm Gran Pct Auto 0.5 % (0.0-0.4); Lymphocytes Absolute Auto 1.7 X10*3/uL (1.2-4.9); Lymphocytes Percent Auto 9.1 % (20-40); Mean Corpuscular HGB Conc 30.3 g/dl (31.0-36.0); Mean Corpuscular Hemoglobin 25.1 pg (27.0-33.0); Mean Corpuscular Volume 83.1 fL (80-98); Mean Platelet Volume 11.8 fL (9.4-12.4); Monocytes Absolute Auto 0.9 X10*3/uL (0.1-1.2); Monocytes Percent Auto 4.8 % (2-11); Neutrophils Absolute Auto 15.7 X10*3/uL (2.0-8.3); Neutrophils Percent Auto 83.3 % (45-73); Platelet Count 291 X10*3/uL (160-400); Red Blood Count 3.54 X10*6/uL (4.60-5.80); Red Cell Distribution Width 17.3 % (11.0-16.0); White Blood Count 18.8 X10*3/uL (4.8-10.8)
[2020-10-01 06:21] LABS: Anion Gap 10 (12-20); Blood Urea Nitrogen 25 mg/dL (9-16); Calcium 8.3 mg/dL (8.4-10.2); Carbon Dioxide 22 mmol/L (22-29); Chloride 115 mmol/L (96-108); Creatinine Clr Calc Pharmacy 48.9; Estimated Glomerular Filt Rate > 60; Glucose Random 103 mg/dL (60-115); Potassium 4.1 mmol/L (3.3-5.1); Sodium 143 mmol/L (135-145)
[2020-10-01] MEDS: Albuterol/Iprat 2.5/0.5MG 3 ML AMPUL.NEB INHALE ×2 (07:56→15:37)
--- NOTE | 2020-10-01 08:38 | MHC.CM.PN ---
pt is a resident of [facility]. dc plan is to return there when medically stable. ref. to [facility] been [facility]. cm to cont. to follow.
[2020-10-01] MEDS: QUEtiapine Fumarate 25 MG TABLET PO ×3 (08:55→21:41)
[2020-10-01] MEDS: Escitalopram Oxalate 5 MG TABLET 2.5 MG PO (08:55)
[2020-10-01] MEDS: Sodium Bicarbonate 650 MG TABLET PO ×3 (08:55→21:41)
[2020-10-01] MEDS: Topiramate 25 MG TABLET PO ×2 (08:56→21:41)
[2020-10-01] MEDS: allopurinoL 100 MG TABLET PO (08:56)
[2020-10-01] MEDS: amLODIPine Besylate 2.5 MG TABLET PO (08:56)
[2020-10-01] MEDS: Famotidine 20 MG TABLET PO ×2 (08:56→21:41)
[2020-10-01] MEDS: amLODIPine Besylate 5 MG TABLET PO (08:56)
--- NOTE | 2020-10-01 09:08 | P.CDIC_ITS ---
CDI Concurrent Query Service Date: 10/02/20 Documentation Clarification: Please clarify if you are treating a proba ble/suspected/likely or confirmed: BMI Cachectic Please specify if known or other Provider Response: Other Other Diagnosis: not cachectic PLEASE DO NOT DELETE/MODIFY EXISTING CONTENT Additional information is needed in order to code to the highest accuracy and appropriate Severity of Illness (SOI). Please clarify the information noted below in your progress notes and discharge summary. Risk Factors/Clinical Indicators/Treatments ED: Cachectic, lethargic albumin 2.6 L BMI 24 CDS: Rebecca Hernandez CCS, CDIS Contact Number: [phone] Please Review the information above and exercise your independent professional judgment in responding to the query. If you concur, pleas document in the PROGRESS NOTES and DISCHARGE SUMMARY. If you do not agree with the query, please document in the query above. THIS QUERY IS PART OF THE PERMANENT MEDICAL RECORD
[2020-10-01] MEDS: Levothyroxine Sodium 88 MCG TABLET PO (11:12)
[2020-10-01] MEDS: Dextrose 5 % and 0.9 % NaCl 1,000 ML 60 ML IVCONT (11:12)
--- NOTE | 2020-10-01 14:23 | P.PNIM_ITS ---
Subjective Subjective Date of Service: 10/01/20 Interval History: patient seen and examined at bedside patient still requiring oxygen remains confused Physical Exam Vital Signs: Vital Signs: Last Vital Signs Temp 97.0 F 10/01/20 11:20 Pulse 67 10/01/20 11:20 Resp 21 H 10/01/20 11:20 BP 137/47 L 10/01/20 11:20 Pulse Ox 97 10/01/20 11:20 Body Mass Index 24.3 Const: Other: Constitutional : Alert, nonverbal, not in distress Neck : Normal inspection, Supple Cardiovascular : RRR, S1 S2, no lower extremity edema Respiratory : Good bilateral air entry, bilateral basal crackles mainly on right-side, bilateral scattered wheezes or rhonchi Gastrointestinal: soft, lax, Normal bowel sounds, Non tender Skin : Warm/Dry, No rash Neurological : Alert & nonverbal, No focal deficit Objective Data Current Medications Generic Name Dose Route Start Last Admin Trade Name Freq PRN Reason Stop Dose Admin Acetaminophen 650 mg 09/30/20 17:18 Acetaminophen 325 Mg Tablet PO Q4H PRN fever/mild pain Albuterol/Ipratropium 3 ml 09/30/20 14:00 10/01/20 07:56 Albuterol/Iprat 2.5/0.5mg 3 Ml Ampul.Neb INHALE 3 ml RQ6H WHILE AWAKE DANIEL Administration Allopurinol 100 mg 10/01/20 09:00 10/01/20 08:56 Allopurinol 100 Mg Tablet PO 100 mg DAILY DANIEL Administration Amlodipine Besylate 2.5 mg 10/01/20 09:00 10/01/20 08:56 Amlodipine Besylate 2.5 Mg Tablet PO 2.5 mg DAILY DANIEL Administration Protocol Amlodipine Besylate 5 mg 10/01/20 09:00 10/01/20 08:56 Amlodipine Besylate 5 Mg Tablet PO 5 mg DAILY DANIEL Administration Protocol Artificial Tears 1 drop 09/30/20 17:18 Artificial Tears 15 Ml Drops EYE-BOTH Q8H PRN Dry Eyes Atorvastatin Calcium 40 mg 09/30/20 21:00 09/30/20 21:37 Atorvastatin Calcium 40 Mg Tablet PO Not Given BEDTIME DANIEL Bisacodyl 5 mg 09/30/20 17:18 Bisacodyl 5 Mg Tablet. PO Q24H PRN Constipation Bisacodyl 10 mg 09/30/20 17:18 Bisacodyl 10 Mg Supp.Rect CO Q24H PRN Constipation Cyanocobalamin 1,000 mcg 09/30/20 17:18 09/30/20 18:20 Cyanocobalamin (Vitamin B-12) 1,000 Mcg/Ml Vial IM 1,000 mcg Q42D DANIEL Administration Enoxaparin Sodium 40 mg 09/30/20 18:00 09/30/20 17:44 Enoxaparin Sodium 40 Mg/0.4 Ml Syringe SUBCUT 40 mg Q24H DANIEL Administration Escitalopram Oxalate 2.5 mg 10/01/20 09:00 10/01/20 08:55 Escitalopram Oxalate 5 Mg Tablet PO 2.5 mg DAILY DANIEL Administration Famotidine 20 mg 09/30/20 21:00 10/01/20 08:56 Famotidine 20 Mg Tablet PO 20 mg BID DANIEL Administration Piperacillin Sod/Tazobactam 50 mls @ 100 mls/hr 09/30/20 18:00 10/01/20 11:54 Sod 3.375 gm/ Sodium Chloride IV Infused Q6H DANIEL Infusion Ibuprofen 600 mg 09/30/20 19:00 Ibuprofen Oral Susp 200 Mg/10 Ml Oral.Susp PO Q6H PRN Pain (Scale Score 4-6) Levothyroxine Sodium 88 mcg 10/01/20 11:30 10/01/20 11:12 Levothyroxine Sodium 88 Mcg Tablet PO 88 mcg [id number] DANIEL Administration [place] Carbonate 300 mg 09/30/20 21:00 10/01/20 09:25 [place] Carbonate 300 Mg Capsule PO Not Given BID DANIEL Loperamide HCl 2 mg 09/30/20 17:18 Loperamide Hcl 2 Mg Capsule PO Q6H PRN Diarrhea Ondansetron HCl 4 mg 09/30/20 17:18 Ondansetron Hcl 4 Mg/2 Ml Vial IVPUSH Q8H PRN Nausea and Vomiting Pharmacy Consult 1 each 09/30/20 08:59 Consult Rx Vancomycin Dosing MISCELLANE DAILY PRN Consult order Pharmacy Consult 1 each 09/30/20 09:00 Consult Rx Perform Med Rec MISCELLANE ONCE PRN Consult order Potassium Chloride 20 meq 10/01/20 09:00 10/01/20 09:24 Potassium Chloride Er 10 Meq Capsule.Er PO Not Given DAILY [facility] Quetiapine Fumarate 25 mg 09/30/20 17:18 10/01/20 08:55 Quetiapine Fumarate 25 Mg Tablet PO 25 mg TID DANIEL Administration Risperidone 1 mg 09/30/20 21:00 09/30/20 21:37 Risperidone 1 Mg Tablet PO Not Given BEDTIME DANIEL Senna 8.6 mg 09/30/20 17:18 Sennosides 8.6 Mg Tablet PO Q24H PRN Constipation Sodium Bicarbonate 650 mg 09/30/20 17:18 10/01/20 08:55 Sodium Bicarbonate 650 Mg Tablet PO 650 mg TID DANIEL Administration Sodium Chloride 3 ml 09/30/20 17:18 10/01/20 08:56 0.9 % Sodium Chloride Flush 3 Ml Syringe IVFLUSH Not Given QSHIFT [facility] Sodium Chloride 2 spray 09/30/20 17:18 Sodium Chloride 0.65 % Nasal 44 Ml Sprbtl NOSTRIL-B Q4H PRN Dry Nasal Passages Tamsulosin HCl 0.8 mg 09/30/20 17:18 09/30/20 17:44 Tamsulosin Hcl 0.4 Mg Capsule PO 0.8 mg DAILY@1700 DANIEL Administration Topiramate 25 mg 09/30/20 21:00 10/01/20 08:56 Topiramate 25 Mg Tablet PO 25 mg BID DANIEL Administration Labs CBC & Chem 7: 10/01/20 05:32 10/01/20 05:32 Microbiology Microbiology Results: Microbiology 09/30/20 08:32 Blood - Venous Blood Culture - Preliminary No growth after 24 hours. 09/30/20 06:40 Blood - Venous Blood Culture - Preliminary No growth after 24 hours. Assessment and Plan (1) Multifocal pneumonia: Status: Acute (2) Hypoxia: Status: Acute (3) Swallowing problem: Status: Acute Assessment and Plan: 84 y/o male with an extended PMHX who [facility] due to shortness of breath, hypoxia and altered mentation Multifocal pneumonia likely aspiration Acute hypoxic respiratory failure CT scan of the chest consistent with multifocal pneumonia Continue IV Zosyn Negative COVID the test ID evaluation follow-up culture seen by speech recommended pureed and nectar thick liquids aspiration precaution Metabolic encephalopathy More awake today Likely secondary to infection Seroquel dose reduced COPD exacerbation improving continue oxygen supplementation continue nebulizer Gout Continue allopurinol Alzheimer disease continue with escitalopram continue with lithium continue with risperidone BPH Continue Flomax DVT PPX Lovenox
[2020-10-01] MEDS: Tamsulosin HCL 0.4 MG CAPSULE 0.8 MG PO (15:59)
[2020-10-01] MEDS: Enoxaparin Sodium 40 MG/0.4 ML SYRINGE SUBCUT (17:45)
[2020-10-01] MEDS: Atorvastatin Calcium 40 MG TABLET PO (21:41)
[2020-10-01] MEDS: risperiDONE 1 MG TABLET PO (21:41)
[2020-10-02] VITALS (7 sets, daily range): BP systolic 124–178; BP diastolic 58–83; PULSE 67–87; RESP 18–19; TEMP 36.1–36.9; O2SAT 95–100
[2020-10-02] MEDS: 0.9 % Sodium Chloride Flush 3 ML SYRINGE IVFLUSH ×5 (00:29→23:52)
[2020-10-02] MEDS: Piperacillin Sodium/Tazobactam 3.375 GM in 0.9 % Sodium Chloride 50 ML IV ×5 (00:29→23:52)
[2020-10-02] MEDS: Levothyroxine Sodium 88 MCG TABLET PO (06:00)
[2020-10-02] MEDS: Albuterol/Iprat 2.5/0.5MG 3 ML AMPUL.NEB INHALE (07:32)
[2020-10-02 08:41] LABS: MANUAL DIFF FLAG NO
[2020-10-02 08:44] LABS: Basophils Absolute Auto 0.1 X10*3/uL (0.0-0.2); Basophils Percent Auto 0.3 % (0-2); Eosinophils Absolute Auto 0.5 X10*3/uL (0.0-0.4); Hematocrit 34.3 % (42-52); Hemoglobin 10.4 g/dl (14.0-18.0); Imm Gran Abs Auto 0.08 X10*3/uL (0.00-0.03); Imm Gran Pct Auto 0.5 % (0.0-0.4); Lymphocytes Absolute Auto 2.5 X10*3/uL (1.2-4.9); Lymphocytes Percent Auto 14.3 % (20-40); Mean Corpuscular HGB Conc 30.3 g/dl (31.0-36.0); Mean Corpuscular Hemoglobin 25.6 pg (27.0-33.0); Mean Corpuscular Volume 84.3 fL (80-98); Mean Platelet Volume 11.4 fL (9.4-12.4); Monocytes Absolute Auto 1.3 X10*3/uL (0.1-1.2); Monocytes Percent Auto 7.6 % (2-11); Neutrophils Absolute Auto 13.1 X10*3/uL (2.0-8.3); Neutrophils Percent Auto 74.3 % (45-73); Platelet Count 376 X10*3/uL (160-400); Red Blood Count 4.07 X10*6/uL (4.60-5.80); Red Cell Distribution Width 17.7 % (11.0-16.0); White Blood Count 17.6 X10*3/uL (4.8-10.8)
--- NOTE | 2020-10-02 08:55 | MHC.CM.PN ---
NURSE DIGITAL ENGINEER NOTE ELECTRONIC MEDICAL RECORD REVIEWED ALONG WITH CASE DISCUSSED WITH STAFF NURSE, PATIENT RESIDES FROM [facility], HE WAS SENT TO THE HOSPITAL PER DOCUMENTATION [id number] DIFFICULTY BREATHING, (DX WITH ?ASPIRATION, MULTI FOCAL PNA HYPOXIA LIKELY ASPIRATION)CONTINUES ON IV ABX , ID CONSULT CALLED PATIENT CONTINUES ON OXYGEN, MORE AWAKES SEQUEL DOSE HAS BEEN LOWERED, CONTINUE HIS NSG HOME MEDICATION, HAS GUARDIAN TYLER FRANCOIS. CARE MANGER TO CONTINUE TO FOLLOW DISCHARGE PLAN RETURN BACK TO [facility] AND WILL NEED ACTION BELKIS ZACARIAS , ONCE READY FOR DISCHARGE WILL NOTIFY GUARDIAN,
[2020-10-02] MEDS: Topiramate 25 MG TABLET PO ×2 (09:07→21:26)
[2020-10-02] MEDS: amLODIPine Besylate 5 MG TABLET PO (09:07)
[2020-10-02] MEDS: amLODIPine Besylate 2.5 MG TABLET PO (09:07)
[2020-10-02] MEDS: Famotidine 20 MG TABLET PO ×2 (09:07→21:26)
[2020-10-02] MEDS: Sodium Bicarbonate 650 MG TABLET PO ×3 (09:07→21:26)
[2020-10-02] MEDS: Escitalopram Oxalate 5 MG TABLET 2.5 MG PO (09:08)
[2020-10-02] MEDS: allopurinoL 100 MG TABLET PO (09:08)
[2020-10-02] MEDS: QUEtiapine Fumarate 25 MG TABLET PO ×3 (09:08→21:26)
[2020-10-02 09:09] LABS: Anion Gap 11 (12-20); Blood Urea Nitrogen 16 mg/dL (9-16); Calcium 8.8 mg/dL (8.4-10.2); Carbon Dioxide 19 mmol/L (22-29); Chloride 118 mmol/L (96-108); Creatinine Clr Calc Pharmacy 53.5; Estimated Glomerular Filt Rate > 60; Glucose Random 89 mg/dL (60-115); Potassium 4.1 mmol/L (3.3-5.1); Sodium 144 mmol/L (135-145)
--- NOTE | 2020-10-02 11:11 | MHC.SLORD ---
HOME SECURITY ALARM INSTALLER spoke with pt's RN regarding tolerance to current diet recommendation. Pt is tolerating pureed solids and nectar thick liquids without difficulty. Pt tolerated meds in applesauce this morning. Pt's has little appetite and requires encouragement for PO intake. At this time, HOME SECURITY ALARM INSTALLER continues to recommend PUREED (NDD1) solids and NECTAR THICK liquids with pills CRUSHED IN PUREE. Total assistance and strict aspiration precautions apply. Name: Mega Melgar Date of : 1935 Age: 85 Date of Registration: 09/30/20 Speech Language Pathology Order Status:
[2020-10-02] MEDS: LORazepam 2 MG/ML VIAL 0.5 MG IVPUSH (13:12)
[2020-10-02] MEDS: Loperamide HCl 2 MG CAPSULE PO (13:22)
--- NOTE | 2020-10-02 14:39 | HO.PM.IMPN ---
Subjective Subjective Date of Service: 10/02/20 Interval History: patient seen and examined at bedside patient still requiring oxygen remains confused Physical Exam Vital Signs: Vital Signs: Last Vital Signs Temp 98.5 F 10/02/20 11:33 Pulse 83 10/02/20 11:33 Resp 19 10/02/20 11:33 BP 178/76 H 10/02/20 11:33 Pulse Ox 97 10/02/20 11:33 Body Mass Index 24.3 Const: Other: Constitutional : Alert, nonverbal, not in distress Neck : Normal inspection, Supple Cardiovascular : RRR, S1 S2, no lower extremity edema Respiratory : Good bilateral air entry, bilateral basal crackles mainly on right-side, bilateral scattered wheezes or rhonchi Gastrointestinal: soft, lax, Normal bowel sounds, Non tender Skin : Warm/Dry, No rash Neurological : Alert & nonverbal, No focal deficit Objective Data Current Medications Generic Name Dose Route Start Last Admin Trade Name Freq PRN Reason Stop Dose Admin Acetaminophen 650 mg 09/30/20 17:18 Acetaminophen 325 Mg Tablet PO Q4H PRN fever/mild pain Albuterol/Ipratropium 3 ml 09/30/20 14:00 10/02/20 07:32 Albuterol/Iprat 2.5/0.5mg 3 Ml Ampul.Neb INHALE 3 ml RQ6H WHILE AWAKE DANIEL Administration Allopurinol 100 mg 10/01/20 09:00 10/02/20 09:08 Allopurinol 100 Mg Tablet PO 100 mg DAILY DANIEL Administration Amlodipine Besylate 2.5 mg 10/01/20 09:00 10/02/20 09:07 Amlodipine Besylate 2.5 Mg Tablet PO 2.5 mg DAILY DANIEL Administration Protocol Amlodipine Besylate 5 mg 10/01/20 09:00 10/02/20 09:07 Amlodipine Besylate 5 Mg Tablet PO 5 mg DAILY DANIEL Administration Protocol Artificial Tears 1 drop 09/30/20 17:18 Artificial Tears 15 Ml Drops EYE-BOTH Q8H PRN Dry Eyes Atorvastatin Calcium 40 mg 09/30/20 21:00 10/01/20 21:41 Atorvastatin Calcium 40 Mg Tablet PO 40 mg BEDTIME DANIEL Administration Bisacodyl 5 mg 09/30/20 17:18 Bisacodyl 5 Mg Tablet. PO Q24H PRN Constipation Bisacodyl 10 mg 09/30/20 17:18 Bisacodyl 10 Mg Supp.Rect [place] Q24H PRN Constipation Cyanocobalamin 1,000 mcg 09/30/20 17:18 09/30/20 18:20 Cyanocobalamin (Vitamin B-12) 1,000 Mcg/Ml Vial IM 1,000 mcg Q42D DANIEL Administration Enoxaparin Sodium 40 mg 09/30/20 18:00 10/01/20 17:45 Enoxaparin Sodium 40 Mg/0.4 Ml Syringe SUBCUT 40 mg Q24H DANIEL Administration Escitalopram Oxalate 2.5 mg 10/01/20 09:00 10/02/20 09:08 Escitalopram Oxalate 5 Mg Tablet PO 2.5 mg DAILY DANIEL Administration Famotidine 20 mg 09/30/20 21:00 10/02/20 09:07 Famotidine 20 Mg Tablet PO 20 mg BID DANIEL Administration Piperacillin Sod/Tazobactam 50 mls @ 100 mls/hr 09/30/20 18:00 10/02/20 12:37 Sod 3.375 gm/ Sodium Chloride IV Infused Q6H DANIEL Infusion Ibuprofen 600 mg 09/30/20 19:00 Ibuprofen Oral Susp 200 Mg/10 Ml Oral.Susp PO Q6H PRN Pain (Scale Score 4-6) Levothyroxine Sodium 88 mcg 10/01/20 11:30 10/02/20 06:00 Levothyroxine Sodium 88 Mcg Tablet PO 88 mcg [id number] DANIEL Administration [place] Carbonate 300 mg 09/30/20 21:00 10/02/20 09:34 [place] Carbonate 300 Mg Capsule PO Not Given BID DANIEL Loperamide HCl 2 mg 09/30/20 17:18 10/02/20 13:22 Loperamide Hcl 2 Mg Capsule PO 2 mg Q6H PRN Administration Diarrhea Ondansetron HCl 4 mg 09/30/20 17:18 Ondansetron Hcl 4 Mg/2 Ml Vial IVPUSH Q8H PRN Nausea and Vomiting Pharmacy Consult 1 each 09/30/20 08:59 Consult Rx Vancomycin Dosing MISCELLANE DAILY PRN Consult order Pharmacy Consult 1 each 09/30/20 09:00 Consult Rx Perform Med Rec MISCELLANE ONCE PRN Consult order Potassium Chloride 20 meq 10/01/20 09:00 10/02/20 09:34 Potassium Chloride Er 10 Meq Capsule.Er PO Not Given DAILY DANIEL Quetiapine Fumarate 25 mg 09/30/20 17:18 10/02/20 09:08 Quetiapine Fumarate 25 Mg Tablet PO 25 mg TID DANIEL Administration Risperidone 1 mg 09/30/20 21:00 10/01/20 21:41 Risperidone 1 Mg Tablet PO 1 mg BEDTIME DANIEL Administration Senna 8.6 mg 09/30/20 17:18 Sennosides 8.6 Mg Tablet PO Q24H PRN Constipation Sodium Bicarbonate 650 mg 09/30/20 17:18 10/02/20 09:07 Sodium Bicarbonate 650 Mg Tablet PO 650 mg TID DANIEL Administration Sodium Chloride 3 ml 09/30/20 17:18 10/02/20 09:06 0.9 % Sodium Chloride Flush 3 Ml Syringe IVFLUSH 3 ml QSHIFT DANIEL Administration Sodium Chloride 2 spray 09/30/20 17:18 Sodium Chloride 0.65 % Nasal 44 Ml Sprbtl NOSTRIL-B Q4H PRN Dry Nasal Passages Tamsulosin HCl 0.8 mg 09/30/20 17:18 10/01/20 15:59 Tamsulosin Hcl 0.4 Mg Capsule PO 0.8 mg DAILY@1700 DANIEL Administration Topiramate 25 mg 09/30/20 21:00 10/02/20 09:07 Topiramate 25 Mg Tablet PO 25 mg BID DANIEL Administration Labs CBC & Chem 7: 10/02/20 08:35 10/02/20 08:35 Microbiology Microbiology Results: Microbiology 09/30/20 08:32 Blood - Venous Blood Culture - Preliminary No growth after 48 hours. 09/30/20 06:40 Blood - Venous Blood Culture - Preliminary No growth after 48 hours. Assessment and Plan (1) Multifocal pneumonia: Status: Acute (2) Hypoxia: Status: Acute (3) Swallowing problem: Status: Acute Assessment and Plan: 84 y/o male with an extended PMHX who [facility] due to shortness of breath, hypoxia and altered mentation Multifocal pneumonia likely aspiration Acute hypoxic respiratory failure CT scan of the chest consistent with multifocal pneumonia Continue IV Zosyn Negative COVID the test ID evaluation follow-up culture seen by speech recommended pureed and nectar thick liquids aspiration precaution Metabolic encephalopathy improving Likely secondary to infection Seroquel dose reduced COPD exacerbation improving continue oxygen supplementation continue nebulizer Gout Continue allopurinol Alzheimer disease continue with escitalopram continue with lithium continue with risperidone BPH Continue Flomax DVT PPX Lovenox
[2020-10-02] MEDS: Tamsulosin HCL 0.4 MG CAPSULE 0.8 MG PO (16:17)
[2020-10-02] MEDS: Enoxaparin Sodium 40 MG/0.4 ML SYRINGE SUBCUT (18:30)
[2020-10-02] MEDS: Atorvastatin Calcium 40 MG TABLET PO (21:26)
[2020-10-02] MEDS: risperiDONE 1 MG TABLET PO (21:26)
[2020-10-02] MEDS: Lithium Carbonate 300 MG CAPSULE PO (21:46)
[2020-10-03] VITALS (10 sets, daily range): BP systolic 106–171; BP diastolic 49–74; PULSE 66–87; RESP 16–19; TEMP 36–36.7; O2SAT 90–99
[2020-10-03] MEDS: Levothyroxine Sodium 88 MCG TABLET PO (06:11)
[2020-10-03] MEDS: Piperacillin Sodium/Tazobactam 3.375 GM in 0.9 % Sodium Chloride 50 ML IV ×3 (06:11→18:25)
[2020-10-03] MEDS: Albuterol/Iprat 2.5/0.5MG 3 ML AMPUL.NEB INHALE ×3 (08:19→21:17)
--- NOTE | 2020-10-03 10:28 | MHC.SLORD ---
PARKING LOT SPOTTER attempted dysphagia treatment. Patient was awoken and repositioned upright in bed. However, patient refused to open his mouth to accept PO trials this morning. Not appropriate for dysphagia treatment secondary to lethargy and mental status. Will follow up tomorrow morning. Per sitter who had fed patient, he ate 50% of his breakfast this morning. He reportedly required very small bites of food at a time due to lethargic state. He tolerated nectar thick liquids without difficulty. Patient is currently on PUREED solids NDD1 and NECTAR THICK liquids and requires 1:1 assistance feeding. He appears to be on appropriate diet textures. Name: Mega Melgar Date of : 1935 Age: 85 Date of Registration: 09/30/20 Speech Language Pathology Order Status:
[2020-10-03 10:45] LABS: MANUAL DIFF FLAG NO
[2020-10-03 10:51] LABS: Basophils Absolute Auto 0.1 X10*3/uL (0.0-0.2); Basophils Percent Auto 0.8 % (0-2); Eosinophils Absolute Auto 0.5 X10*3/uL (0.0-0.4); Eosinophils Percent Auto 3.4 % (0-4); Hematocrit 36.6 % (42-52); Imm Gran Abs Auto 0.05 X10*3/uL (0.00-0.03); Imm Gran Pct Auto 0.3 % (0.0-0.4); Lymphocytes Absolute Auto 2.8 X10*3/uL (1.2-4.9); Lymphocytes Percent Auto 17.5 % (20-40); Mean Corpuscular HGB Conc 30.1 g/dl (31.0-36.0); Mean Corpuscular Hemoglobin 25.4 pg (27.0-33.0); Mean Corpuscular Volume 84.5 fL (80-98); Mean Platelet Volume 11.4 fL (9.4-12.4); Monocytes Absolute Auto 1.2 X10*3/uL (0.1-1.2); Monocytes Percent Auto 7.7 % (2-11); Neutrophils Absolute Auto 11.1 X10*3/uL (2.0-8.3); Neutrophils Percent Auto 70.3 % (45-73); Platelet Count 427 X10*3/uL (160-400); Red Blood Count 4.33 X10*6/uL (4.60-5.80); Red Cell Distribution Width 18.2 % (11.0-16.0); White Blood Count 15.8 X10*3/uL (4.8-10.8)
[2020-10-03] MEDS: Sodium Bicarbonate 650 MG TABLET PO ×3 (11:02→21:28)
[2020-10-03] MEDS: amLODIPine Besylate 2.5 MG TABLET PO (11:02)
[2020-10-03] MEDS: Lithium Carbonate 300 MG CAPSULE PO ×2 (11:03→21:28)
[2020-10-03] MEDS: allopurinoL 100 MG TABLET PO (11:03)
[2020-10-03] MEDS: Acetaminophen 325 MG TABLET 650 MG PO (11:03)
[2020-10-03] MEDS: Sennosides 8.6 MG TABLET PO (11:03)
[2020-10-03] MEDS: QUEtiapine Fumarate 25 MG TABLET PO ×3 (11:03→21:28)
[2020-10-03] MEDS: amLODIPine Besylate 5 MG TABLET PO (11:03)
[2020-10-03] MEDS: Topiramate 25 MG TABLET PO ×2 (11:03→21:28)
[2020-10-03] MEDS: Famotidine 20 MG TABLET PO ×2 (11:04→21:28)
[2020-10-03] MEDS: Escitalopram Oxalate 5 MG TABLET 2.5 MG PO (11:04)
--- NOTE | 2020-10-03 12:06 | HO.PM.IMPN ---
Subjective Subjective Date of Service: 10/03/20 Interval History: patient seen and examined at bedside patient remains confused Physical Exam Vital Signs: Vital Signs: Last Vital Signs Temp 97.3 F 10/03/20 11:18 Pulse 81 10/03/20 11:18 Resp 16 10/03/20 11:18 BP 171/74 H 10/03/20 11:18 Pulse Ox 99 10/03/20 11:18 Body Mass Index 24.3 Cardio: Other: Constitutional : Alert, nonverbal, not in distress Neck : Normal inspection, Supple Cardiovascular : RRR, S1 S2, no lower extremity edema Respiratory : Good bilateral air entry, bilateral basal crackles mainly on right-side, bilateral scattered wheezes or rhonchi Gastrointestinal: soft, lax, Normal bowel sounds, Non tender Skin : Warm/Dry, No rash Neurological : Alert & nonverbal, No focal deficit Objective Data Current Medications Generic Name Dose Route Start Last Admin Trade Name Freq PRN Reason Stop Dose Admin Acetaminophen 650 mg 09/30/20 17:18 10/03/20 11:03 Acetaminophen 325 Mg Tablet PO 650 mg Q4H PRN Administration fever/mild pain Albuterol/Ipratropium 3 ml 09/30/20 14:00 10/03/20 08:19 Albuterol/Iprat 2.5/0.5mg 3 Ml Ampul.Neb INHALE 3 ml RQ6H WHILE AWAKE DANIEL Administration Allopurinol 100 mg 10/01/20 09:00 10/03/20 11:03 Allopurinol 100 Mg Tablet PO 100 mg DAILY DANIEL Administration Amlodipine Besylate 2.5 mg 10/01/20 09:00 10/03/20 11:02 Amlodipine Besylate 2.5 Mg Tablet PO 2.5 mg DAILY DANIEL Administration Protocol Amlodipine Besylate 5 mg 10/01/20 09:00 10/03/20 11:03 Amlodipine Besylate 5 Mg Tablet PO 5 mg DAILY DANIEL Administration Protocol Artificial Tears 1 drop 09/30/20 17:18 Artificial Tears 15 Ml Drops EYE-BOTH Q8H PRN Dry Eyes Atorvastatin Calcium 40 mg 09/30/20 21:00 10/02/20 21:26 Atorvastatin Calcium 40 Mg Tablet PO 40 mg BEDTIME DANIEL Administration Bisacodyl 5 mg 09/30/20 17:18 Bisacodyl 5 Mg Tablet.Dr PO Q24H PRN Constipation Bisacodyl 10 mg 09/30/20 17:18 Bisacodyl 10 Mg Supp.Rect [place] Q24H PRN Constipation Cyanocobalamin 1,000 mcg 09/30/20 17:18 09/30/20 18:20 Cyanocobalamin (Vitamin B-12) 1,000 Mcg/Ml Vial IM 1,000 mcg Q42D DANIEL Administration Enoxaparin Sodium 40 mg 09/30/20 18:00 10/02/20 18:30 Enoxaparin Sodium 40 Mg/0.4 Ml Syringe SUBCUT 40 mg Q24H DANIEL Administration Escitalopram Oxalate 2.5 mg 10/01/20 09:00 10/03/20 11:04 Escitalopram Oxalate 5 Mg Tablet PO 2.5 mg DAILY DANIEL Administration Famotidine 20 mg 09/30/20 21:00 10/03/20 11:04 Famotidine 20 Mg Tablet PO 20 mg BID DANIEL Administration Piperacillin Sod/Tazobactam 50 mls @ 100 mls/hr 09/30/20 18:00 10/03/20 11:43 Sod 3.375 gm/ Sodium Chloride IV Infused Q6H DANIEL Infusion Ibuprofen 600 mg 09/30/20 19:00 Ibuprofen Oral Susp 200 Mg/10 Ml Oral.Susp PO Q6H PRN Pain (Scale Score 4-6) Levothyroxine Sodium 88 mcg 10/01/20 11:30 10/03/20 06:11 Levothyroxine Sodium 88 Mcg Tablet PO 88 mcg [id number] DANIEL Administration [place] Carbonate 300 mg 09/30/20 21:00 10/03/20 11:03 [place] Carbonate 300 Mg Capsule PO 300 mg BID DANIEL Administration Loperamide HCl 2 mg 09/30/20 17:18 10/02/20 13:22 Loperamide Hcl 2 Mg Capsule PO 2 mg Q6H PRN Administration Diarrhea Ondansetron HCl 4 mg 09/30/20 17:18 Ondansetron Hcl 4 Mg/2 Ml Vial IVPUSH Q8H PRN Nausea and Vomiting Pharmacy Consult 1 each 09/30/20 08:59 Consult Rx Vancomycin Dosing MISCELLANE DAILY PRN Consult order Pharmacy Consult 1 each 09/30/20 09:00 Consult Rx Perform Med Rec MISCELLANE ONCE PRN Consult order Potassium Chloride 20 meq 10/01/20 09:00 10/03/20 11:02 Potassium Chloride Er 10 Meq Capsule.Er PO 20 meq DAILY DANIEL Administration Quetiapine Fumarate 25 mg 09/30/20 17:18 10/03/20 11:03 Quetiapine Fumarate 25 Mg Tablet PO 25 mg TID DANIEL Administration Risperidone 1 mg 09/30/20 21:00 10/02/20 21:26 Risperidone 1 Mg Tablet PO 1 mg BEDTIME DANIEL Administration Senna 8.6 mg 09/30/20 17:18 10/03/20 11:03 Sennosides 8.6 Mg Tablet PO 8.6 mg Q24H PRN Administration Constipation Sodium Bicarbonate 650 mg 09/30/20 17:18 10/03/20 11:02 Sodium Bicarbonate 650 Mg Tablet PO 650 mg TID DANIEL Administration Sodium Chloride 3 ml 09/30/20 17:18 10/02/20 23:52 0.9 % Sodium Chloride Flush 3 Ml Syringe IVFLUSH 3 ml QSHIFT DANIEL Administration Sodium Chloride 2 spray 09/30/20 17:18 Sodium Chloride 0.65 % Nasal 44 Ml Sprbtl NOSTRIL-B Q4H PRN Dry Nasal Passages Tamsulosin HCl 0.8 mg 09/30/20 17:18 10/02/20 16:17 Tamsulosin Hcl 0.4 Mg Capsule PO 0.8 mg DAILY@1700 DANIEL Administration Topiramate 25 mg 09/30/20 21:00 10/03/20 11:03 Topiramate 25 Mg Tablet PO 25 mg BID DANIEL Administration Labs CBC & Chem 7: 10/03/20 10:41 10/02/20 08:35 Microbiology Microbiology Results: Microbiology 09/30/20 08:32 Blood - Venous Blood Culture - Preliminary No growth after 48 hours. 09/30/20 06:40 Blood - Venous Blood Culture - Preliminary No growth after 48 hours. Assessment and Plan (1) Multifocal pneumonia: Status: Acute (2) Hypoxia: Status: Acute (3) Swallowing problem: Status: Acute Assessment and Plan: 84 y/o male with an extended PMHX who presented from [facility] due to shortness of breath, hypoxia and altered mentation Multifocal pneumonia likely aspiration improving Acute hypoxic respiratory failure CT scan of the chest consistent with multifocal pneumonia Continue IV Zosyn Negative COVID the test Cultures preliminary negative seen by speech recommended pureed and nectar thick liquids aspiration precaution Wean down oxygen as tolerated Metabolic encephalopathy improving Likely secondary to infection Seroquel dose reduced COPD exacerbation improving continue oxygen supplementation continue nebulizer Gout Continue allopurinol Alzheimer disease continue with escitalopram continue with lithium continue with risperidone BPH Continue Flomax Hypertension Continue amlodipine DVT PPX Lovenox
[2020-10-03] MEDS: 0.9 % Sodium Chloride Flush 3 ML SYRINGE IVFLUSH ×3 (12:18→21:35)
[2020-10-03] MEDS: Tamsulosin HCL 0.4 MG CAPSULE 0.8 MG PO (16:18)
[2020-10-03] MEDS: Enoxaparin Sodium 40 MG/0.4 ML SYRINGE SUBCUT (18:25)
[2020-10-03] MEDS: risperiDONE 1 MG TABLET PO (21:28)
[2020-10-03] MEDS: Atorvastatin Calcium 40 MG TABLET PO (21:28)
[2020-10-04] VITALS (9 sets, daily range): BP systolic 91–168; BP diastolic 51–72; PULSE 72–82; RESP 13–24; TEMP 34.9–36.8; O2SAT 92–99
--- NOTE | 2020-10-04 | ECG_ITS ---
Test Reason : PROLONGED QTC Blood Pressure : / mmHG Vent. Rate : 074 BPM Atrial Rate : 074 BPM P-R Int : 188 ms QRS Dur : 134 ms QT Int : 470 ms P-R-T Axes : 001 105 019 degrees QTc Int : 522 ms Normal sinus rhythm Right bundle branch block Abnormal ECG When compared with ECG of 30-SEP-2020 07:25, No significant changes seen Referred By: Germain Tilley Electronically Signed By:ANA QUINONES
[2020-10-04] MEDS: Piperacillin Sodium/Tazobactam 3.375 GM in 0.9 % Sodium Chloride 50 ML IV ×4 (01:08→23:41)
[2020-10-04] MEDS: Levothyroxine Sodium 88 MCG TABLET PO (05:48)
[2020-10-04] MEDS: Albuterol/Iprat 2.5/0.5MG 3 ML AMPUL.NEB INHALE ×2 (07:29→19:27)
[2020-10-04] MEDS: QUEtiapine Fumarate 25 MG TABLET PO ×2 (08:56→20:34)
[2020-10-04] MEDS: Lithium Carbonate 300 MG CAPSULE PO ×2 (08:56→20:33)
[2020-10-04] MEDS: Sodium Bicarbonate 650 MG TABLET PO ×2 (08:56→20:34)
[2020-10-04] MEDS: 0.9 % Sodium Chloride Flush 3 ML SYRINGE IVFLUSH ×3 (08:57→23:43)
[2020-10-04] MEDS: allopurinoL 100 MG TABLET PO (08:57)
[2020-10-04] MEDS: amLODIPine Besylate 2.5 MG TABLET PO (08:57)
[2020-10-04] MEDS: amLODIPine Besylate 5 MG TABLET PO (08:57)
[2020-10-04] MEDS: Topiramate 25 MG TABLET PO ×2 (08:57→20:34)
[2020-10-04] MEDS: Famotidine 20 MG TABLET PO ×2 (08:57→20:34)
[2020-10-04] MEDS: Escitalopram Oxalate 5 MG TABLET 2.5 MG PO (08:57)
[2020-10-04] MEDS: LORazepam 0.5 MG TABLET PO (12:47)
--- NOTE | 2020-10-04 13:05 | MHC.CM.PN ---
Addendum entered by Kaya Taylor 10/04/20 13:35: FAXED TO THE [facility] ATTENTION KIN NOTIFIED OF POTENTIAL DISCHARGE THIS WEEKEND Original Note: NURSE RECLAIMER NOTE ELECTRONIC MEDICAL RECORD REVIEWED PATIENT RESIDES AT [facility], PATIENT WITH COGNITIVE COMMUNICATION DISORDER,OROPHARYNGEAL PHASE DYSPHASIA RECMENDING PUREED SOLIDS AND NECTAR THICK LIQUIDS RECOMMENDED AFTER BEDSIDE DYSPHAGIA PATIENTS BASELINE BALANCED DIET GROUND MECHANICAL MECHANICAL ALTERED SOLIDS AND NECTAR THICK LIQUIDS PATIENT IS NOW ON ROOM AIR BILATERAL BASAL CRACKLES ON RIGHT SIDE BILATERAL SCATTERED WHEEZES RHONCHI, ALERT NON VERBAL PATIENT VERY CONFUSED TODAY ORDERING IMAGING STUDIES DISCHARGE PLAN RETURN BACK TO [facility] IN [place] , WILL,NEED BLS TRANSPORTATION FAXED UPDATED CLINICALS TO THEM ON 10/04/2020 HE WILL NEED REPEAT COVID TEST BEFORE DISCHARGING
--- NOTE | 2020-10-04 13:27 | HO.PM.IMPN ---
Subjective Subjective Date of Service: 10/04/20 Interval History: patient seen and examined at bedside patient remains confused Noticed to be hallucinating and has gaze preference Physical Exam Vital Signs: Vital Signs: Last Vital Signs Temp 97.1 F 10/04/20 11:48 Pulse 75 10/04/20 11:48 Resp 24 H 10/04/20 11:48 BP 91/66 10/04/20 11:48 Pulse Ox 97 10/04/20 11:48 Body Mass Index 24.3 Const: Other: Constitutional : Alert, nonverbal, not in distress Neck : Normal inspection, Supple Cardiovascular : RRR, S1 S2, no lower extremity edema Respiratory : Good bilateral air entry, bilateral basal crackles mainly on right-side, bilateral scattered wheezes or rhonchi Gastrointestinal: soft, lax, Normal bowel sounds, Non tender Skin : Warm/Dry, No rash Neurological : Alert & nonverbal, No focal deficit Objective Data Current Medications Generic Name Dose Route Start Last Admin Trade Name Freq PRN Reason Stop Dose Admin Acetaminophen 650 mg 09/30/20 17:18 10/03/20 11:03 Acetaminophen 325 Mg Tablet PO 650 mg Q4H PRN Administration fever/mild pain Albuterol/Ipratropium 3 ml 09/30/20 14:00 10/04/20 07:29 Albuterol/Iprat 2.5/0.5mg 3 Ml Ampul.Neb INHALE 3 ml RQ6H WHILE AWAKE DANIEL Administration Allopurinol 100 mg 10/01/20 09:00 10/04/20 08:57 Allopurinol 100 Mg Tablet PO 100 mg DAILY DANIEL Administration Amlodipine Besylate 2.5 mg 10/01/20 09:00 10/04/20 08:57 Amlodipine Besylate 2.5 Mg Tablet PO 2.5 mg DAILY DANIEL Administration Protocol Amlodipine Besylate 5 mg 10/01/20 09:00 10/04/20 08:57 Amlodipine Besylate 5 Mg Tablet PO 5 mg DAILY DANIEL Administration Protocol Artificial Tears 1 drop 09/30/20 17:18 Artificial Tears 15 Ml Drops EYE-BOTH Q8H PRN Dry Eyes Atorvastatin Calcium 40 mg 09/30/20 21:00 10/03/20 21:28 Atorvastatin Calcium 40 Mg Tablet PO 40 mg BEDTIME DANIEL Administration Bisacodyl 5 mg 09/30/20 17:18 Bisacodyl 5 Mg Tablet.Dr PO Q24H PRN Constipation Bisacodyl 10 mg 09/30/20 17:18 Bisacodyl 10 Mg Supp.Rect [place] Q24H PRN Constipation Cyanocobalamin 1,000 mcg 09/30/20 17:18 09/30/20 18:20 Cyanocobalamin (Vitamin B-12) 1,000 Mcg/Ml Vial IM 1,000 mcg Q42D DANIEL Administration Enoxaparin Sodium 40 mg 09/30/20 18:00 10/03/20 18:25 Enoxaparin Sodium 40 Mg/0.4 Ml Syringe SUBCUT 40 mg Q24H DANIEL Administration Escitalopram Oxalate 2.5 mg 10/01/20 09:00 10/04/20 08:57 Escitalopram Oxalate 5 Mg Tablet PO 2.5 mg DAILY DANIEL Administration Famotidine 20 mg 09/30/20 21:00 10/04/20 08:57 Famotidine 20 Mg Tablet PO 20 mg BID DANIEL Administration Piperacillin Sod/Tazobactam 50 mls @ 100 mls/hr 09/30/20 18:00 10/04/20 12:49 Sod 3.375 gm/ Sodium Chloride IV Not Given Q6H [facility] Ibuprofen 600 mg 09/30/20 19:00 Ibuprofen Oral Susp 200 Mg/10 Ml Oral.Susp PO Q6H PRN Pain (Scale Score 4-6) Levothyroxine Sodium 88 mcg 10/01/20 11:30 10/04/20 05:48 Levothyroxine Sodium 88 Mcg Tablet PO 88 mcg [id number] DANIEL Administration [place] Carbonate 300 mg 09/30/20 21:00 10/04/20 08:56 [place] Carbonate 300 Mg Capsule PO 300 mg BID DANIEL Administration Loperamide HCl 2 mg 09/30/20 17:18 10/02/20 13:22 Loperamide Hcl 2 Mg Capsule PO 2 mg Q6H PRN Administration Diarrhea Ondansetron HCl 4 mg 09/30/20 17:18 Ondansetron Hcl 4 Mg/2 Ml Vial IVPUSH Q8H PRN Nausea and Vomiting Pharmacy Consult 1 each 09/30/20 08:59 Consult Rx Vancomycin Dosing MISCELLANE DAILY PRN Consult order Pharmacy Consult 1 each 09/30/20 09:00 Consult Rx Perform Med Rec MISCELLANE ONCE PRN Consult order Potassium Chloride 20 meq 10/01/20 09:00 10/04/20 08:57 Potassium Chloride Er 10 Meq Capsule.Er PO 20 meq DAILY DANIEL Administration Quetiapine Fumarate 25 mg 09/30/20 17:18 10/04/20 08:56 Quetiapine Fumarate 25 Mg Tablet PO 25 mg TID DANIEL Administration Risperidone 1 mg 09/30/20 21:00 10/03/20 21:28 Risperidone 1 Mg Tablet PO 1 mg BEDTIME DANIEL Administration Senna 8.6 mg 09/30/20 17:18 10/03/20 11:03 Sennosides 8.6 Mg Tablet PO 8.6 mg Q24H PRN Administration Constipation Sodium Bicarbonate 650 mg 09/30/20 17:18 10/04/20 08:56 Sodium Bicarbonate 650 Mg Tablet PO 650 mg TID DANIEL Administration Sodium Chloride 3 ml 09/30/20 17:18 10/04/20 08:57 0.9 % Sodium Chloride Flush 3 Ml Syringe IVFLUSH 3 ml QSHIFT DANIEL Administration Sodium Chloride 2 spray 09/30/20 17:18 Sodium Chloride 0.65 % Nasal 44 Ml Sprbtl NOSTRIL-B Q4H PRN Dry Nasal Passages Tamsulosin HCl 0.8 mg 09/30/20 17:18 10/03/20 16:18 Tamsulosin Hcl 0.4 Mg Capsule PO 0.8 mg DAILY@1700 DANIEL Administration Topiramate 25 mg 09/30/20 21:00 10/04/20 08:57 Topiramate 25 Mg Tablet PO 25 mg BID DANIEL Administration Labs CBC & Chem 7: 10/03/20 10:41 10/02/20 08:35 Microbiology Microbiology Results: Microbiology 09/30/20 08:32 Blood - Venous Blood Culture - Preliminary No growth after 48 hours. 09/30/20 06:40 Blood - Venous Blood Culture - Preliminary No growth after 48 hours. Assessment and Plan (1) Multifocal pneumonia: Status: Acute (2) Hypoxia: Status: Acute (3) Swallowing problem: Status: Acute Assessment and Plan: 84 y/o male with an extended PMHX who presented from [facility] due to shortness of breath, hypoxia and altered mentation Multifocal pneumonia likely aspiration improving Acute hypoxic respiratory failure CT scan of the chest consistent with multifocal pneumonia Continue IV Zosyn Negative COVID the test Cultures preliminary negative seen by speech recommended pureed and nectar thick liquids aspiration precaution Wean down oxygen as tolerated Metabolic encephalopathy Appears to be hallucination Will check CT head COPD exacerbation improving continue oxygen supplementation continue nebulizer Gout Continue allopurinol Alzheimer disease continue with escitalopram continue with lithium continue with risperidone BPH Continue Flomax Hypertension Continue amlodipine DVT PPX Lovenox
[2020-10-04] MEDS: Tamsulosin HCL 0.4 MG CAPSULE 0.8 MG PO (16:18)
--- NOTE | 2020-10-04 17:36 | P.EN_ITS ---
Event Note Date of Service: 10/04/20 Event Note: Patient was more confused this morning, also noted patient was garcia ving hallucinations and has left gaze preference, no focal deficit , CT head was done shows subdural hematoma, case was discussed with Neurosurgery at [facility] with neurosurgery ARTURO [place] , imaging was reviewed by Neurosurgery recommended subdural hematoma appears to be subacute to chronic does not appear to be acute and there is no mass effect recommended monitoring and no neurosurgical interve ntion at this time , if patient's mental status worsens then recommended repeat ct head and if hematoma worsen or there is midline shift then patient will be transferred to [facility] Patient seen and examined at bedside Patient was little sleepy but arousable received Ativan, no focal deficit, remains confused, CVS rate and rhythm regular lungs clear Subdural hematoma subacute to chronic , will monitor on telemetry, neuro check, case discussed with Neurology, will monitor closely if mental status worse Will repeat CT head, neurosurgery at [facility] aware Patient's guardian Mr. Castillo was updated his contact number is [phone].
[2020-10-04 19:39] LABS: MANUAL DIFF FLAG NO
[2020-10-04 19:51] LABS: Basophils Absolute Auto 0.1 X10*3/uL (0.0-0.2); Basophils Percent Auto 0.7 % (0-2); Eosinophils Absolute Auto 0.7 X10*3/uL (0.0-0.4); Eosinophils Percent Auto 5.6 % (0-4); Hematocrit 32.7 % (42-52); Hemoglobin 9.6 g/dl (14.0-18.0); Imm Gran Abs Auto 0.04 X10*3/uL (0.00-0.03); Imm Gran Pct Auto 0.3 % (0.0-0.4); Lymphocytes Absolute Auto 2.7 X10*3/uL (1.2-4.9); Lymphocytes Percent Auto 22.1 % (20-40); Mean Corpuscular HGB Conc 29.4 g/dl (31.0-36.0); Mean Corpuscular Hemoglobin 24.9 pg (27.0-33.0); Mean Corpuscular Volume 84.9 fL (80-98); Mean Platelet Volume 11.8 fL (9.4-12.4); Monocytes Absolute Auto 1.1 X10*3/uL (0.1-1.2); Neutrophils Absolute Auto 7.5 X10*3/uL (2.0-8.3); Neutrophils Percent Auto 62.3 % (45-73); Platelet Count 372 X10*3/uL (160-400); Red Blood Count 3.85 X10*6/uL (4.60-5.80); Red Cell Distribution Width 18.3 % (11.0-16.0); White Blood Count 12.1 X10*3/uL (4.8-10.8)
[2020-10-04 20:13] LABS: Anion Gap 10 (12-20); Blood Urea Nitrogen 16 mg/dL (9-16); Calcium 8.5 mg/dL (8.4-10.2); Carbon Dioxide 22 mmol/L (22-29); Chloride 122 mmol/L (96-108); Creatinine Clr Calc Pharmacy 46.7; Estimated Glomerular Filt Rate > 60; Glucose Random 79 mg/dL (60-115); Potassium 4.6 mmol/L (3.3-5.1); Sodium 149 mmol/L (135-145)
[2020-10-04] MEDS: risperiDONE 1 MG TABLET PO (20:34)
[2020-10-04] MEDS: Atorvastatin Calcium 40 MG TABLET PO (20:34)
[2020-10-05] VITALS (11 sets, daily range): BP systolic 126–170; BP diastolic 59–76; PULSE 63–74; RESP 16–20; TEMP 36.2–36.7; O2SAT 93–98
--- NOTE | 2020-10-05 | ECG_ITS ---
Test Reason : PROLONG QTC Blood Pressure : / mmHG Vent. Rate : 072 BPM Atrial Rate : 072 BPM P-R Int : 200 ms QRS Dur : 122 ms QT Int : 464 ms P-R-T Axes : 035 -52 008 degrees QTc Int : 508 ms Sinus rhythm with occasional Premature ventricular complexes and Premature atrial complexes Left axis deviation Right bundle branch block Abnormal ECG No significant changes when compared with the previous EKG of october 04 2020 Referred By: Germain Tilley Electronically Signed By:ANA QUINONES
[2020-10-05] MEDS: Levothyroxine Sodium 88 MCG TABLET PO (05:21)
[2020-10-05] MEDS: Piperacillin Sodium/Tazobactam 3.375 GM in 0.9 % Sodium Chloride 50 ML IV ×4 (05:21→23:20)
[2020-10-05] MEDS: Albuterol/Iprat 2.5/0.5MG 3 ML AMPUL.NEB INHALE ×3 (07:41→21:18)
[2020-10-05 09:17] LABS: Lithium 0.71 mmol/L (0.60-1.20)
[2020-10-05] MEDS: 0.9 % Sodium Chloride Flush 3 ML SYRINGE IVFLUSH ×2 (09:41→16:32)
[2020-10-05] MEDS: Sodium Bicarbonate 650 MG TABLET PO ×3 (09:42→20:01)
[2020-10-05] MEDS: Famotidine 20 MG TABLET PO ×2 (09:43→20:01)
[2020-10-05] MEDS: allopurinoL 100 MG TABLET PO (09:43)
[2020-10-05] MEDS: Topiramate 25 MG TABLET PO ×2 (09:43→20:01)
[2020-10-05] MEDS: amLODIPine Besylate 2.5 MG TABLET PO (09:44)
[2020-10-05] MEDS: Escitalopram Oxalate 5 MG TABLET 2.5 MG PO (09:44)
[2020-10-05] MEDS: Lithium Carbonate 300 MG CAPSULE PO ×2 (09:45→20:01)
[2020-10-05] MEDS: amLODIPine Besylate 5 MG TABLET PO (09:46)
[2020-10-05] MEDS: QUEtiapine Fumarate 25 MG TABLET PO ×3 (09:46→20:01)
--- NOTE | 2020-10-05 10:01 | P.CNNE_ITS ---
History of Present Illness Data of Consult Service Date: 10/05/20 Primary Care Provider: Unknown Physician 85 years old man resident of senior care not able to provide any history with underlying multifactorial dementia had change in mental status with eyes deviating to 1 side and had a head CT done. This head CT revealed finding prompting this consultation. Symptoms or signs of eye deviation lasted briefly. There was no witnessing of any obvious convulsion. He was not in any distress and unable to provide history. Review of Systems Review of Systems: Unable to do review of system with him. [facility] Past Medical History Medical History Alzheimer disease Chronic pain COPD (chronic obstructive pulmonary disease) COVID-19 CVA (cerebral vascular accident) Dysphagia GERD (gastroesophageal reflux disease) Gout Hypokalemia Hypothyroid Leukocytosis Normocytic anemia Pneumonia Social History Social History Household Members: Caregiver Housing: Custodial Do you presently have visiting nurse or other home services: Yes Unable to assess alcohol history related to: Unable to respond Alcohol intake: never Smoking Status: Unknown if ever smoked Use of substances other than those prescribed or required for medical reasons: Unable to respond Currently Displaying Signs/Symptoms of Drug Intoxication Withdrawal: No Advance Directives: No Advance Directives Information Provided: No Do you have thoughts of harming others: None Do you have a plan to hurt others: No Plan Recently lost weight without trying: Unsure service: No Current occupational status: disabled Meds Allergies Allergy/AdvReac Type Severity Reaction Status Date / Time No Known Allergies Allergy Verified 08/12/20 16:36 [No Known Allergies*] Active Medications: Current Medications Generic Name Dose Route Start Last Admin Trade Name Freq PRN Reason Stop Dose Admin Acetaminophen 650 mg 09/30/20 17:18 10/03/20 11:03 Acetaminophen 325 Mg Tablet PO 650 mg Q4H PRN Administration fever/mild pain Albuterol/Ipratropium 3 ml 09/30/20 14:00 10/05/20 07:41 Albuterol/Iprat 2.5/0.5mg 3 Ml Ampul.Neb INHALE 3 ml RQ6H WHILE AWAKE DANIEL Administration Allopurinol 100 mg 10/01/20 09:00 10/04/20 08:57 Allopurinol 100 Mg Tablet PO 100 mg DAILY DANIEL Administration Amlodipine Besylate 2.5 mg 10/01/20 09:00 10/04/20 08:57 Amlodipine Besylate 2.5 Mg Tablet PO 2.5 mg DAILY DANIEL Administration Protocol Amlodipine Besylate 5 mg 10/01/20 09:00 10/04/20 08:57 Amlodipine Besylate 5 Mg Tablet PO 5 mg DAILY DANIEL Administration Protocol Artificial Tears 1 drop 09/30/20 17:18 Artificial Tears 15 Ml Drops EYE-BOTH Q8H PRN Dry Eyes Atorvastatin Calcium 40 mg 09/30/20 21:00 10/04/20 20:34 Atorvastatin Calcium 40 Mg Tablet PO 40 mg BEDTIME DANIEL Administration Bisacodyl 5 mg 09/30/20 17:18 Bisacodyl 5 Mg Tablet.Dr PO Q24H PRN Constipation Bisacodyl 10 mg 09/30/20 17:18 Bisacodyl 10 Mg Supp.Rect ID Q24H PRN Constipation Cyanocobalamin 1,000 mcg 09/30/20 17:18 09/30/20 18:20 Cyanocobalamin (Vitamin B-12) 1,000 Mcg/Ml Vial IM 1,000 mcg Q42D DANIEL Administration Escitalopram Oxalate 2.5 mg 10/01/20 09:00 10/04/20 08:57 Escitalopram Oxalate 5 Mg Tablet PO 2.5 mg DAILY DANIEL Administration Famotidine 20 mg 09/30/20 21:00 10/04/20 20:34 Famotidine 20 Mg Tablet PO 20 mg BID DANIEL Administration Piperacillin Sod/Tazobactam 50 mls @ 100 mls/hr 09/30/20 18:00 10/05/20 06:06 Sod 3.375 gm/ Sodium Chloride IV Infused Q6H DANIEL Infusion Levothyroxine Sodium 88 mcg 10/01/20 11:30 10/05/20 05:21 Levothyroxine Sodium 88 Mcg Tablet PO 88 mcg [id number] DANIEL Administration [place] Carbonate 300 mg 09/30/20 21:00 10/04/20 20:33 [place] Carbonate 300 Mg Capsule PO 300 mg BID DANIEL Administration Loperamide HCl 2 mg 09/30/20 17:18 10/02/20 13:22 Loperamide Hcl 2 Mg Capsule PO 2 mg Q6H PRN Administration Diarrhea Ondansetron HCl 4 mg 09/30/20 17:18 Ondansetron Hcl 4 Mg/2 Ml Vial IVPUSH Q8H PRN Nausea and Vomiting Pharmacy Consult 1 each 09/30/20 08:59 Consult Rx Vancomycin Dosing MISCELLANE DAILY PRN Consult order Pharmacy Consult 1 each 09/30/20 09:00 Consult Rx Perform Med Rec MISCELLANE ONCE PRN Consult order Potassium Chloride 20 meq 10/01/20 09:00 10/04/20 08:57 Potassium Chloride Er 10 Meq Capsule.Er PO 20 meq DAILY DANIEL Administration Quetiapine Fumarate 25 mg 09/30/20 17:18 10/04/20 20:34 Quetiapine Fumarate 25 Mg Tablet PO 25 mg TID DANIEL Administration Risperidone 1 mg 09/30/20 21:00 10/04/20 20:34 Risperidone 1 Mg Tablet PO 1 mg BEDTIME DANIEL Administration Senna 8.6 mg 09/30/20 17:18 10/03/20 11:03 Sennosides 8.6 Mg Tablet PO 8.6 mg Q24H PRN Administration Constipation Sodium Bicarbonate 650 mg 09/30/20 17:18 10/04/20 20:34 Sodium Bicarbonate 650 Mg Tablet PO 650 mg TID DANIEL Administration Sodium Chloride 3 ml 09/30/20 17:18 10/04/20 23:43 0.9 % Sodium Chloride Flush 3 Ml Syringe IVFLUSH 3 ml QSHIFT DANIEL Administration Sodium Chloride 2 spray 09/30/20 17:18 Sodium Chloride 0.65 % Nasal 44 Ml Sprbtl NOSTRIL-B Q4H PRN Dry Nasal Passages Tamsulosin HCl 0.8 mg 09/30/20 17:18 10/04/20 16:18 Tamsulosin Hcl 0.4 Mg Capsule PO 0.8 mg DAILY@1700 DANIEL Administration Topiramate 25 mg 09/30/20 21:00 10/04/20 20:34 Topiramate 25 Mg Tablet PO 25 mg BID DANIEL Administration Home Medications Medication Instructions Recorded Confirmed Last Taken Type Incruse Ellipta 1 inh INHALATION DAILY 07/14/20 09/30/20 Unknown History allopurinol 100 mg PO DAILY 07/14/20 09/30/20 Unknown History amlodipine 2.5 mg PO DAILY 07/14/20 09/30/20 Unknown History atorvastatin 40 mg PO BEDTIME 07/14/20 09/30/20 Unknown History escitalopram oxalate 2.5 mg PO DAILY 07/14/20 09/30/20 Unknown History famotidine 20 mg PO BID 07/14/20 09/30/20 Unknown History levothyroxine 88 mcg PO [id number] 07/14/20 09/30/20 Unknown History lithium carbonate 300 mg PO BID 07/14/20 09/30/20 Unknown History potassium chloride 20 meq PO DAILY 07/14/20 09/30/20 Unknown History quetiapine 100 mg PO TID 07/14/20 09/30/20 Unknown History risperidone 1 mg PO BEDTIME 07/14/20 09/30/20 Unknown History tamsulosin 0.8 mg PO DAILY@1700 07/14/20 09/30/20 Unknown History topiramate 25 mg PO BID 07/14/20 09/30/20 Unknown History sennosides [senna] 8.6 mg PO Q24H PRN 07/15/20 09/30/20 Unknown History Calazime Skin Protectant Paste 1 applic TOPICAL QSHIFT 09/30/20 09/30/20 Unknown History acetaminophen 650 mg PO Q4H PRN 09/30/20 09/30/20 Unknown History amlodipine 5 mg PO DAILY 09/30/20 09/30/20 Unknown History bisacodyl 5 mg PO Q24H PRN 09/30/20 09/30/20 Unknown History bisacodyl 10 mg ID Q24H PRN 09/30/20 09/30/20 Unknown History cyanocobalamin (vitamin B-12) 1,000 mcg IM Q42D 09/30/20 09/30/20 Unknown History doxycycline hyclate 100 mg PO BID 09/30/20 09/30/20 Unknown History ibuprofen 600 mg PO Q6H PRN 09/30/20 09/30/20 Unknown History lanolin qytfqdv-fk-d.pet-ceres 1 appl TOPICAL Q1H PRN 09/30/20 09/30/20 Unknown History [Hydrocerin (with petrolatum)] lanolin nvonkuj-fz-q.pet-ceres 1 appl TOPICAL QPM 09/30/20 09/30/20 Unknown History [Hydrocerin (with petrolatum)] loperamide 2 mg PO Q6H PRN 09/30/20 09/30/20 Unknown History polyvinyl alcohol [Artificial 1 drp OPHTHALMIC (EYE) Q8H PRN 09/30/20 09/30/20 Unknown History Tears (polyvin alc)] sodium chloride [[place] Nasal] 2 spray INTRANASAL Q4H PRN 09/30/20 09/30/20 Unknown History Physical Exam Vital Signs: Vital Signs: Last Vital Signs Temp 98 F 10/05/20 07:58 Pulse 70 10/05/20 07:58 Resp 18 10/05/20 07:58 BP 138/62 10/05/20 07:58 Pulse Ox 95 10/05/20 07:58 Body Mass Index 24.3 He was alert and awake looking around did not make an eye contact and did not follow commands. He did not speak and did not comprehend. There was no eye deviation. He was moving eyes spontaneously on both sides. Visual burns were difficult to determine. Face was symmetrical. He was moving his hands for examination was not possible as he did not follow any commands. Legs were flexed and he was laying on his side. Plantars were flexors. Results Labs CBC & Chem 7: 10/04/20 19:23 10/04/20 19:23 Labs: Short CBC 10/04/20 Range/Units 19:23 WBC 12.1 H (4.8-10.8) X10*3/uL Hgb 9.6 L (14.0-18.0) g/dl Hct 32.7 L (42-52) % Plt Count 372 (160-400) X10*3/uL BMP 10/04/20 19:23 Sodium 149 H Potassium 4.6 Chloride 122 H Carbon Dioxide 22 BUN 16 Creatinine 1.10 Calcium 8.5 Microbiology Microbiology Results: Microbiology 09/30/20 06:40 Blood - Venous Blood Culture - Final No growth after 5 days. 09/30/20 08:32 Blood - Venous Blood Culture - Preliminary No growth after [address], compared to the CT done in July of last year, revealed a moderate size chronic left frontal area subdural hemorrhage or subdural fluid collection which was mostly hypodense suggestive of hygroma. Assessment and Plan (1) Subdural hemorrhage: Status: Acute 85 years old man with underlying multifactorial dementia was admitted hospital for unrelated reason but had an episode of eyes deviation and change in mental status, which prompted a head CT showing a moderate size chronic left frontal subdural fluid collection, probably a chronic subdural hemorrhage. There was no mass effect and at this time in this patient surgical intervention was not needed. Sometime this kind of pathology can cause seizure disorder and that might be the reason for his symptoms. If he had another similar episode, I would recommend starting him on levetiracetam 250 mg twice a day. Procedures Date of Service Date of Service: 10/05/20
[2020-10-05] MEDS: Dextrose 5 % 1,000 ML 75 ML IVCONT ×2 (11:41→23:21)
--- NOTE | 2020-10-05 12:36 | HO.PM.IMPN ---
Subjective Subjective Date of Service: 10/05/20 Interval History: Patient seen and examined at bedside patient remains confused Patient is less agitated today Physical Exam Vital Signs: Vital Signs: Last Vital Signs Temp 97.1 F 10/05/20 11:01 Pulse 70 10/05/20 11:01 Resp 16 10/05/20 11:01 BP 144/64 H 10/05/20 11:01 Pulse Ox 96 10/05/20 11:01 Body Mass Index 24.3 Const: Other: Constitutional : Alert, nonverbal, not in distress Neck : Normal inspection, Supple Cardiovascular : RRR, S1 S2, no lower extremity edema Respiratory : Good bilateral air entry, bilateral basal crackles mainly on right-side, bilateral scattered wheezes or rhonchi Gastrointestinal: soft, lax, Normal bowel sounds, Non tender Skin : Warm/Dry, No rash Neurological : Alert & nonverbal, No focal deficit Objective Data Current Medications Generic Name Dose Route Start Last Admin Trade Name Freq PRN Reason Stop Dose Admin Acetaminophen 650 mg 09/30/20 17:18 10/03/20 11:03 Acetaminophen 325 Mg Tablet PO 650 mg Q4H PRN Administration fever/mild pain Albuterol/Ipratropium 3 ml 09/30/20 14:00 10/05/20 07:41 Albuterol/Iprat 2.5/0.5mg 3 Ml Ampul.Neb INHALE 3 ml RQ6H WHILE AWAKE DANIEL Administration Allopurinol 100 mg 10/01/20 09:00 10/05/20 09:43 Allopurinol 100 Mg Tablet PO 100 mg DAILY DANIEL Administration Amlodipine Besylate 2.5 mg 10/01/20 09:00 10/05/20 09:44 Amlodipine Besylate 2.5 Mg Tablet PO 2.5 mg DAILY DANIEL Administration Protocol Amlodipine Besylate 5 mg 10/01/20 09:00 10/05/20 09:46 Amlodipine Besylate 5 Mg Tablet PO 5 mg DAILY DANIEL Administration Protocol Artificial Tears 1 drop 09/30/20 17:18 Artificial Tears 15 Ml Drops EYE-BOTH Q8H PRN Dry Eyes Atorvastatin Calcium 40 mg 09/30/20 21:00 10/04/20 20:34 Atorvastatin Calcium 40 Mg Tablet PO 40 mg BEDTIME DANIEL Administration Bisacodyl 5 mg 09/30/20 17:18 Bisacodyl 5 Mg Tablet.Dr PO Q24H PRN Constipation Bisacodyl 10 mg 09/30/20 17:18 Bisacodyl 10 Mg Supp.Rect [place] Q24H PRN Constipation Cyanocobalamin 1,000 mcg 09/30/20 17:18 09/30/20 18:20 Cyanocobalamin (Vitamin B-12) 1,000 Mcg/Ml Vial IM 1,000 mcg Q42D DANIEL Administration Escitalopram Oxalate 2.5 mg 10/01/20 09:00 10/05/20 09:44 Escitalopram Oxalate 5 Mg Tablet PO 2.5 mg DAILY DANIEL Administration Famotidine 20 mg 09/30/20 21:00 10/05/20 09:43 Famotidine 20 Mg Tablet PO 20 mg BID DANIEL Administration Piperacillin Sod/Tazobactam 50 mls @ 100 mls/hr 09/30/20 18:00 10/05/20 11:41 Sod 3.375 gm/ Sodium Chloride IV 100 mls/hr Q6H DANIEL Administration Dextrose 1,000 mls @ 75 mls/hr 10/05/20 11:15 10/05/20 11:41 D5w IVCONT 10/06/20 00:00 75 mls/hr .[id number] DANIEL Administration Levothyroxine Sodium 88 mcg 10/01/20 11:30 10/05/20 05:21 Levothyroxine Sodium 88 Mcg Tablet PO 88 mcg [id number] DANIEL Administration [place] Carbonate 300 mg 09/30/20 21:00 10/05/20 09:45 [place] Carbonate 300 Mg Capsule PO 300 mg BID DANIEL Administration Loperamide HCl 2 mg 09/30/20 17:18 10/02/20 13:22 Loperamide Hcl 2 Mg Capsule PO 2 mg Q6H PRN Administration Diarrhea Ondansetron HCl 4 mg 09/30/20 17:18 Ondansetron Hcl 4 Mg/2 Ml Vial IVPUSH Q8H PRN Nausea and Vomiting Pharmacy Consult 1 each 09/30/20 08:59 Consult Rx Vancomycin Dosing MISCELLANE DAILY PRN Consult order Pharmacy Consult 1 each 09/30/20 09:00 Consult Rx Perform Med Rec MISCELLANE ONCE PRN Consult order Potassium Chloride 20 meq 10/01/20 09:00 10/05/20 09:42 Potassium Chloride Er 10 Meq Capsule.Er PO 20 meq DAILY DANIEL Administration Quetiapine Fumarate 25 mg 09/30/20 17:18 10/05/20 09:46 Quetiapine Fumarate 25 Mg Tablet PO 25 mg TID DANIEL Administration Risperidone 1 mg 09/30/20 21:00 10/04/20 20:34 Risperidone 1 Mg Tablet PO 1 mg BEDTIME DANIEL Administration Senna 8.6 mg 09/30/20 17:18 10/03/20 11:03 Sennosides 8.6 Mg Tablet PO 8.6 mg Q24H PRN Administration Constipation Sodium Bicarbonate 650 mg 09/30/20 17:18 10/05/20 09:42 Sodium Bicarbonate 650 Mg Tablet PO 650 mg TID DANIEL Administration Sodium Chloride 3 ml 09/30/20 17:18 10/05/20 09:41 0.9 % Sodium Chloride Flush 3 Ml Syringe IVFLUSH 3 ml QSHIFT DANIEL Administration Sodium Chloride 2 spray 09/30/20 17:18 Sodium Chloride 0.65 % Nasal 44 Ml Sprbtl NOSTRIL-B Q4H PRN Dry Nasal Passages Tamsulosin HCl 0.8 mg 09/30/20 17:18 10/04/20 16:18 Tamsulosin Hcl 0.4 Mg Capsule PO 0.8 mg DAILY@1700 DANIEL Administration Topiramate 25 mg 09/30/20 21:00 10/05/20 09:43 Topiramate 25 Mg Tablet PO 25 mg BID DANIEL Administration Labs CBC & Chem 7: 10/04/20 19:23 10/04/20 19:23 Microbiology Microbiology Results: Microbiology 09/30/20 08:32 Blood - Venous Blood Culture - Final No growth after 5 days. 09/30/20 06:40 Blood - Venous Blood Culture - Final No growth after 5 days. Assessment and Plan (1) Multifocal pneumonia: Status: Acute (2) Hypoxia: Status: Acute (3) Swallowing problem: Status: Acute Assessment and Plan: 84 y/o male with an extended PMHX who [facility] due to shortness of breath, hypoxia and altered mentation Multifocal pneumonia likely aspiration improving Acute hypoxic respiratory failure resolved CT scan of the chest consistent with multifocal pneumonia Continue IV Zosyn day 5 switch to p.o. Augmentin on discharge Negative COVID the test Cultures negative seen by speech recommended pureed and nectar thick liquids aspiration precaution Wean off from Oxy Patient appears to be more confused yesterday CT head was done CT head shows subdural hematoma Case was discussed with Neurosurgery at [facility] per neurosurgery subdural hematoma is subacute to chronic and given no midline shift recommended no surgical intervention for now,, if mental status worsens recommended repeating CT head, Seen by Neurology Will monitor Neuro check Lovenox was stopped Hypernatremia Sodium 149 today Will start D5 Monitor sodium Avoid over-correction Metabolic encephalopathy improving Monitor mental status COPD exacerbation improving improving continue oxygen supplementation continue nebulizer Gout Continue allopurinol Prolonged QTC Seroquel dose was reduced Monitor QTC Alzheimer disease continue with escitalopram continue with lithium continue with risperidone BPH Continue Flomax Hypertension Continue amlodipine DVT PPX Venodyne, Lovenox stopped given subdural hematoma
[2020-10-05] MEDS: Tamsulosin HCL 0.4 MG CAPSULE 0.8 MG PO (16:18)
[2020-10-05] MEDS: Atorvastatin Calcium 40 MG TABLET PO (20:01)
[2020-10-05] MEDS: risperiDONE 1 MG TABLET PO (20:01)
[2020-10-06] VITALS (9 sets, daily range): BP systolic 135–164; BP diastolic 56–82; PULSE 62–78; RESP 18–25; TEMP 36.4–36.6; O2SAT 94–100
[2020-10-06] MEDS: Piperacillin Sodium/Tazobactam 3.375 GM in 0.9 % Sodium Chloride 50 ML IV ×4 (05:37→22:33)
[2020-10-06] MEDS: Levothyroxine Sodium 88 MCG TABLET PO (05:38)
[2020-10-06] MEDS: Albuterol/Iprat 2.5/0.5MG 3 ML AMPUL.NEB INHALE ×3 (07:21→19:14)
[2020-10-06] MEDS: 0.9 % Sodium Chloride Flush 3 ML SYRINGE IVFLUSH ×3 (07:49→21:42)
[2020-10-06] MEDS: Escitalopram Oxalate 5 MG TABLET 2.5 MG PO (07:49)
[2020-10-06] MEDS: Lithium Carbonate 300 MG CAPSULE PO (07:50)
[2020-10-06] MEDS: amLODIPine Besylate 5 MG TABLET PO (07:50)
[2020-10-06] MEDS: Topiramate 25 MG TABLET PO ×2 (07:50→21:42)
[2020-10-06] MEDS: allopurinoL 100 MG TABLET PO (07:50)
[2020-10-06] MEDS: QUEtiapine Fumarate 25 MG TABLET PO ×3 (07:50→21:42)
[2020-10-06] MEDS: Famotidine 20 MG TABLET PO ×2 (07:50→21:42)
[2020-10-06] MEDS: amLODIPine Besylate 2.5 MG TABLET PO (07:50)
[2020-10-06] MEDS: Sodium Bicarbonate 650 MG TABLET PO ×3 (07:51→21:41)
[2020-10-06 09:03] LABS: Blood Urea Nitrogen 13 mg/dL (9-16); Calcium 8.3 mg/dL (8.4-10.2); Creatinine Clr Calc Pharmacy 44.3; Estimated Glomerular Filt Rate 60; Glucose Random 88 mg/dL (60-115)
[2020-10-06 09:18] LABS: Anion Gap 12 (12-20); Carbon Dioxide 20 mmol/L (22-29); Chloride 122 mmol/L (96-108); Potassium 4.2 mmol/L (3.3-5.1); Sodium 150 mmol/L (135-145)
--- NOTE | 2020-10-06 10:43 | P.PNIM_ITS ---
Subjective Subjective Date of Service: 10/06/20 Interval History: unable to report Cardiovascular Cardiovascular: Reports no additional cardiovascular complaints Gastrointestinal Gastrointestinal: Reports no additional gastrointestinal complaints Physical Exam Vital Signs: Vital Signs: Last Vital Signs Temp 97.8 F 10/06/20 07:09 Pulse 70 10/06/20 07:50 Resp 18 10/06/20 07:09 BP 151/67 H 10/06/20 07:50 Pulse Ox 96 10/06/20 07:09 Body Mass Index 24.3 General: minimally verbal, no acute distress Resp: diminished CVS: S1,S2,RRR GI: soft, non tender, non distended Neuro: motor grossly intact Psych: impaired insight Objective Data Current Medications Generic Name Dose Route Start Last Admin Trade Name Freq PRN Reason Stop Dose Admin Acetaminophen 650 mg 09/30/20 17:18 10/03/20 11:03 Acetaminophen 325 Mg Tablet PO 650 mg Q4H PRN Administration fever/mild pain Albuterol/Ipratropium 3 ml 09/30/20 14:00 10/06/20 07:21 Albuterol/Iprat 2.5/0.5mg 3 Ml Ampul.Neb INHALE 3 ml RQ6H WHILE AWAKE DANIEL Administration Allopurinol 100 mg 10/01/20 09:00 10/06/20 07:50 Allopurinol 100 Mg Tablet PO 100 mg DAILY DANIEL Administration Amlodipine Besylate 2.5 mg 10/01/20 09:00 10/06/20 07:50 Amlodipine Besylate 2.5 Mg Tablet PO 2.5 mg DAILY DANIEL Administration Protocol Amlodipine Besylate 5 mg 10/01/20 09:00 10/06/20 07:50 Amlodipine Besylate 5 Mg Tablet PO 5 mg DAILY DANIEL Administration Protocol Artificial Tears 1 drop 09/30/20 17:18 Artificial Tears 15 Ml Drops EYE-BOTH Q8H PRN Dry Eyes Atorvastatin Calcium 40 mg 09/30/20 21:00 10/05/20 20:01 Atorvastatin Calcium 40 Mg Tablet PO 40 mg BEDTIME DANIEL Administration Bisacodyl 5 mg 09/30/20 17:18 Bisacodyl 5 Mg Tablet.Dr PO Q24H PRN Constipation Bisacodyl 10 mg 09/30/20 17:18 Bisacodyl 10 Mg Supp.Rect [place] Q24H PRN Constipation Cyanocobalamin 1,000 mcg 09/30/20 17:18 09/30/20 18:20 Cyanocobalamin (Vitamin B-12) 1,000 Mcg/Ml Vial IM 1,000 mcg Q42D DANIEL Administration Escitalopram Oxalate 2.5 mg 10/01/20 09:00 10/06/20 07:49 Escitalopram Oxalate 5 Mg Tablet PO 2.5 mg DAILY DANIEL Administration Famotidine 20 mg 09/30/20 21:00 10/06/20 07:50 Famotidine 20 Mg Tablet PO 20 mg BID DANIEL Administration Piperacillin Sod/Tazobactam 50 mls @ 100 mls/hr 09/30/20 18:00 10/06/20 06:16 Sod 3.375 gm/ Sodium Chloride IV Infused Q6H DANIEL Infusion Dextrose 1,000 mls @ 125 mls/hr 10/06/20 10:30 D5w IVCONT .Q8H DANIEL Levothyroxine Sodium 88 mcg 10/01/20 11:30 10/06/20 05:38 Levothyroxine Sodium 88 Mcg Tablet PO 88 mcg [id number] DANIEL Administration [employer] Carbonate 300 mg 09/30/20 21:00 10/06/20 07:50 [employer] Carbonate 300 Mg Capsule PO 300 mg BID DANIEL Administration Loperamide HCl 2 mg 09/30/20 17:18 10/02/20 13:22 Loperamide Hcl 2 Mg Capsule PO 2 mg Q6H PRN Administration Diarrhea Ondansetron HCl 4 mg 09/30/20 17:18 Ondansetron Hcl 4 Mg/2 Ml Vial IVPUSH Q8H PRN Nausea and Vomiting Pharmacy Consult 1 each 09/30/20 08:59 Consult Rx Vancomycin Dosing MISCELLANE DAILY PRN Consult order Pharmacy Consult 1 each 09/30/20 09:00 Consult Rx Perform Med Rec MISCELLANE ONCE PRN Consult order Potassium Chloride 20 meq 10/01/20 09:00 10/06/20 07:49 Potassium Chloride Er 10 Meq Capsule.Er PO 20 meq DAILY DANIEL Administration Quetiapine Fumarate 25 mg 09/30/20 17:18 10/06/20 07:50 Quetiapine Fumarate 25 Mg Tablet PO 25 mg TID DANIEL Administration Risperidone 1 mg 09/30/20 21:00 10/05/20 20:01 Risperidone 1 Mg Tablet PO 1 mg BEDTIME DANIEL Administration Senna 8.6 mg 09/30/20 17:18 10/03/20 11:03 Sennosides 8.6 Mg Tablet PO 8.6 mg Q24H PRN Administration Constipation Sodium Bicarbonate 650 mg 09/30/20 17:18 10/06/20 07:51 Sodium Bicarbonate 650 Mg Tablet PO 650 mg TID DANIEL Administration Sodium Chloride 3 ml 09/30/20 17:18 10/06/20 07:49 0.9 % Sodium Chloride Flush 3 Ml Syringe IVFLUSH 3 ml QSHIFT DANIEL Administration Sodium Chloride 2 spray 09/30/20 17:18 Sodium Chloride 0.65 % Nasal 44 Ml Sprbtl NOSTRIL-B Q4H PRN Dry Nasal Passages Tamsulosin HCl 0.8 mg 09/30/20 17:18 10/05/20 16:18 Tamsulosin Hcl 0.4 Mg Capsule PO 0.8 mg DAILY@1700 DANIEL Administration Topiramate 25 mg 09/30/20 21:00 10/06/20 07:50 Topiramate 25 Mg Tablet PO 25 mg BID DANIEL Administration Labs CBC & Chem 7: 10/04/20 19:23 10/06/20 07:52 Microbiology Microbiology Results: Microbiology 09/30/20 08:32 Blood - Venous Blood Culture - Final No growth after 5 days. 09/30/20 06:40 Blood - Venous Blood Culture - Final No growth after 5 days. Assessment and Plan (1) Multifocal pneumonia: Status: Acute (2) Hypoxia: Status: Deleted (3) Swallowing problem: Status: Deleted Assessment and Plan: 84 y/o male with an extended PMHX who presented from [facility] due to shortness of breath, hypoxia and altered mentation Multifocal pneumonia likely aspiration improving Acute hypoxic respiratory failure resolved CT scan of the chest consistent with multifocal pneumonia Continue IV Zosyn day 6 switch to p.o. Augmentin on discharge Negative COVID the test Cultures negative seen by speech recommended pureed and nectar thick liquids aspiration precaution Wean off from Oxy subdural hematoma Case was discussed with Neurosurgery at [facility] per neurosurgery subdural hematoma is subacute to chronic and given no midline shift recommended no surgical intervention for now,, if mental status worsens recommended repeating CT head, Seen by Neurology Will monitor Neuro check Lovenox was stopped metabolic encephalopathy due to Hypernatremia, likely from poor intake, but patient on lithium, rule out nephrogenic DI, check urine sodiuum and osm Sodium 150 today increase d5w to 125cc/hr Monitor sodium COPD stable Gout Continue allopurinol Prolonged QTC Seroquel dose was reduced Alzheimer disease continue with escitalopram continue with lithium continue with risperidone BPH Continue Flomax Hypertension Continue amlodipine DVT PPX Venodyne, Lovenox stopped given subdural hematoma
[2020-10-06] MEDS: Dextrose 5 % 1,000 ML 125 ML IVCONT ×2 (11:06→18:18)
[2020-10-06 12:10] LABS: Osmolality Urine 413 mosm/kg (373-1093)
[2020-10-06] MEDS: Tamsulosin HCL 0.4 MG CAPSULE 0.8 MG PO (16:07)
[2020-10-06] MEDS: Atorvastatin Calcium 40 MG TABLET PO (21:42)
[2020-10-06] MEDS: risperiDONE 1 MG TABLET PO (21:42)
[2020-10-06] MEDS: Lithium Carbonate 300 MG TABLET PO (22:33)
[2020-10-07] VITALS (7 sets, daily range): BP systolic 127–162; BP diastolic 58–68; PULSE 62–76; RESP 16–20; TEMP 35.7–36.6; O2SAT 92–99
[2020-10-07] MEDS: Piperacillin Sodium/Tazobactam 3.375 GM in 0.9 % Sodium Chloride 50 ML IV ×2 (04:55→12:09)
[2020-10-07] MEDS: Dextrose 5 % 1,000 ML 125 ML IVCONT (04:55)
[2020-10-07 06:46] LABS: Basophils Absolute Auto 0.1 X10*3/uL (0.0-0.2); Basophils Percent Auto 0.5 % (0-2); MANUAL DIFF FLAG SCAN; PLT CLUMP 1; SCAN SMEAR FLAG 1
[2020-10-07 06:48] LABS: Eosinophils Absolute Auto 0.6 X10*3/uL (0.0-0.4); Eosinophils Percent Auto 5.5 % (0-4); Hematocrit 32.2 % (42-52); Hemoglobin 9.5 g/dl (14.0-18.0); Imm Gran Abs Auto 0.05 X10*3/uL (0.00-0.03); Imm Gran Pct Auto 0.5 % (0.0-0.4); Lymphocytes Absolute Auto 2.4 X10*3/uL (1.2-4.9); Lymphocytes Percent Auto 23.7 % (20-40); Mean Corpuscular HGB Conc 29.5 g/dl (31.0-36.0); Mean Corpuscular Volume 84.7 fL (80-98); Monocytes Absolute Auto 0.8 X10*3/uL (0.1-1.2); Monocytes Percent Auto 8.1 % (2-11); Neutrophils Absolute Auto 6.3 X10*3/uL (2.0-8.3); Neutrophils Percent Auto 61.7 % (45-73); Red Cell Distribution Width 18.2 % (11.0-16.0); White Blood Count 10.2 X10*3/uL (4.8-10.8)
[2020-10-07 07:39] LABS: SLIDE REVIEW VERIFIED
[2020-10-07] MEDS: Albuterol/Iprat 2.5/0.5MG 3 ML AMPUL.NEB INHALE (07:54)
[2020-10-07 08:26] LABS: Anion Gap 9 (12-20); Blood Urea Nitrogen 11 mg/dL (9-16); Carbon Dioxide 21 mmol/L (22-29); Chloride 116 mmol/L (96-108); Creatinine Clr Calc Pharmacy 46.7; Estimated Glomerular Filt Rate > 60; Glucose Random 102 mg/dL (60-115); Potassium 3.6 mmol/L (3.3-5.1); Sodium 142 mmol/L (135-145)
[2020-10-07] MEDS: allopurinoL 100 MG TABLET PO (08:33)
[2020-10-07] MEDS: 0.9 % Sodium Chloride Flush 3 ML SYRINGE IVFLUSH (08:33)
[2020-10-07] MEDS: Escitalopram Oxalate 5 MG TABLET 2.5 MG PO (08:34)
[2020-10-07] MEDS: Famotidine 20 MG TABLET PO (08:34)
[2020-10-07] MEDS: Lithium Carbonate 300 MG TABLET PO (08:34)
[2020-10-07] MEDS: QUEtiapine Fumarate 25 MG TABLET PO (08:34)
[2020-10-07] MEDS: Sodium Bicarbonate 650 MG TABLET PO (08:34)
[2020-10-07] MEDS: amLODIPine Besylate 2.5 MG TABLET PO (08:34)
[2020-10-07] MEDS: Topiramate 25 MG TABLET PO (08:34)
[2020-10-07] MEDS: amLODIPine Besylate 5 MG TABLET PO (08:35)
--- NOTE | 2020-10-07 12:10 | MHC.SLORD ---
Patient is currently on PUREED (NDD1) solids and NECTAR THICK liquids. At [facility], patient's baseline was ground solids/nectar thick liquids. Per RN, patient is tolerating current diet without difficulty. RN reports that plan is for discharge today. Name: Mega Melgar Date of : 1935 Age: 85 Date of Registration: 09/30/20 Speech Language Pathology Order Status:
[2020-10-07 12:42] LABS: COVID-19 Test Negative (Negative)
--- NOTE | 2020-10-07 12:46 | PM.DS ---
DS: Providers Provider Date of Service: 10/07/20 Date of admission: 09/30/20 13:43 Primary care physician: Unknown Physician Consults: 10/04/20 15:24 Consult to Neurology Routine Consulting Provider: [facility] Reason for consultation: subdural hematoma DS: Diagnosis Discharge Diagnosis (1) Multifocal pneumonia: Status: Acute (2) Hypoxia: Status: Deleted (3) Swallowing problem: Status: Deleted DS: Medications Discharge Medications Home Medications: Home Medications Medication Instructions Recorded Confirmed Incruse Ellipta 1 inh INHALATION DAILY 07/14/20 09/30/20 allopurinol 100 mg PO DAILY 07/14/20 09/30/20 amlodipine 2.5 mg PO DAILY 07/14/20 09/30/20 atorvastatin 40 mg PO BEDTIME 07/14/20 09/30/20 escitalopram oxalate 2.5 mg PO DAILY 07/14/20 09/30/20 famotidine 20 mg PO BID 07/14/20 09/30/20 levothyroxine 88 mcg PO SUTUWETHFRSA 07/14/20 09/30/20 lithium carbonate 300 mg PO BID 07/14/20 09/30/20 potassium chloride 20 meq PO DAILY 07/14/20 09/30/20 quetiapine 100 mg PO TID 07/14/20 09/30/20 risperidone 1 mg PO BEDTIME 07/14/20 09/30/20 tamsulosin 0.8 mg PO DAILY@1700 07/14/20 09/30/20 topiramate 25 mg PO BID 07/14/20 09/30/20 sennosides [senna] 8.6 mg PO Q24H PRN 07/15/20 09/30/20 Calazime Skin Protectant Paste 1 applic TOPICAL QSHIFT 09/30/20 09/30/20 Hydrocerin (with petrolatum) 1 appl TOPICAL Q1H PRN 09/30/20 09/30/20 Hydrocerin (with petrolatum) 1 appl TOPICAL QPM 09/30/20 09/30/20 acetaminophen 650 mg PO Q4H PRN 09/30/20 09/30/20 amlodipine 5 mg PO DAILY 09/30/20 09/30/20 bisacodyl 5 mg PO Q24H PRN 09/30/20 09/30/20 bisacodyl 10 mg ND Q24H PRN 09/30/20 09/30/20 cyanocobalamin (vitamin B-12) 1,000 mcg IM Q42D 09/30/20 09/30/20 ibuprofen 600 mg PO Q6H PRN 09/30/20 09/30/20 loperamide 2 mg PO Q6H PRN 09/30/20 09/30/20 polyvinyl alcohol [Artificial 1 drp OPHTHALMIC (EYE) Q8H PRN 09/30/20 09/30/20 Tears (polyvin alc)] sodium chloride [Deep Sea Nasal] 2 spray INTRANASAL Q4H PRN 09/30/20 09/30/20 Previous Rx's Medication Instructions Recorded sodium bicarbonate 650 mg PO TID #30 tab 07/17/20 DS: Summary Hospital Course Hospital Course: HPI 85 years old male with PMH of Alzheimer, it TBI, dysphagia, type 2 diabetes, CAD, COPD among others who presents to the hospital from [facility] after noticed to have difficulty breathing, wheezing and low oxygen level. Patient unable to provide any history so it was taken mainly from ED provider and EMS notes. The patient was noticed to have a drop in his home oxygen level to 80s on room associated with difficulty breathing and wheezes. He was evaluated by EMS and brought to the hospital. In emergency as CT scan of the chest was consistent with multiple lobe pneumonia is of upper and lower lobes associated with significantly elevated WBCs. O2 sat was acceptable at room air. Admitted for further evaluation and treatment. hospital course 85-year-old male admitted with multifocal pneumonia and acute hypoxic respiratory failure patient was started on IV Zosyn and oxygen supplementation and cultures were sent, cultures remain negative, patient was seen by speech given concern for aspiration, speech recommended pureed solid and nectar thick liquids, patient was weaned off from oxygen, cultures remain negative, patient completed 7 days of IV Zosyn, patient also found to have metabolic encephalopathy, patient seems to be more confused likely combination of pneumonia and hypernatremia, CT head was done shows subdural hematoma, case was discussed with Neurosurgery ARTURO vallejo at [facility] recommended given subdural hematoma likely subacute to chronic and no midline shift recommended no surgical intervention, patient remains confused but was alert, mental status remains stable, patient was seen by Neurology and cleared for discharge, [facility], patient will need repeat CT head in 2-3 weeks for follow-upon subdural hematoma , avoid antiplatelet and anticoagulants patient also noticed to have prolonged QTC, Seroquel dose was reduced, repeat EKG shows improvement in kg QTC patient was also treated for mild COPD exacerbation , patient's breathing improved patient was stable discharged back to facility patient will need follow-up with Neurosurgery at [facility] in 2-[address] Valentino Time Spent with Patient Time attestation: Total time spent providing and/or coordinating discharge services: Discharge coordination time: Greater than 30 minutes Physical Exam Vital Signs: Vital Signs: Last Vital Signs Temp 97 F 10/07/20 10:56 Pulse 62 10/07/20 10:56 Resp 20 10/07/20 10:56 BP 155/59 H 10/07/20 10:56 Pulse Ox 99 10/07/20 10:56 Body Mass Index 24.3 DS: Data Data Completed and Pending Labs on day of discharge: Laboratory Results - last 24 hr 10/07/20 10/07/20 10/07/20 05:28 05:28 07:50 WBC 10.2 RBC 3.80 L Hgb 9.5 L Hct 32.2 L MCV 84.7 MCH 25.0 L MCHC 29.5 L RDW 18.2 H Plt Count TNP MPV Not Reportable Immature Gran % (Auto) 0.5 H Neut % (Auto) 61.7 Lymph % (Auto) 23.7 Knott % (Auto) 8.1 Eos % (Auto) 5.5 H Baso % (Auto) 0.5 Lymph # (Auto) 2.4 Knott # (Auto) 0.8 Eos # (Auto) 0.6 H Baso # (Auto) 0.1 Abs Immat Gran (auto) 0.05 H Absolute Neuts (auto) 6.3 Absolute Nucleated RBC 0.000 Nucleated RBC % (auto) 0.0 Smear Tech's Comments VERIFIED Sodium Cancelled 142 Potassium Cancelled 3.6 Chloride Cancelled 116 H Carbon Dioxide Cancelled 21 L Anion Gap Cancelled 9 L BUN Cancelled 11 Creatinine Cancelled 1.10 Estim Creat Clear Calc Cancelled 46.7 Estimated GFR Cancelled > 60 Random Glucose 102 Fasting Glucose Cancelled Calcium Cancelled 8.0 L COVID-19 ([facility]) COVID-19 Clin Com 10/07/20 Unknown WBC RBC Hgb Hct MCV MCH MCHC RDW Plt Count MPV Immature Gran % (Auto) Neut % (Auto) Lymph % (Auto) Knott % (Auto) Eos % (Auto) Baso % (Auto) Lymph # (Auto) Knott # (Auto) Eos # (Auto) Baso # (Auto) Abs Immat Gran (auto) Absolute Neuts (auto) Absolute Nucleated RBC Nucleated RBC % (auto) Smear Tech's Comments Sodium Potassium Chloride Carbon Dioxide Anion Gap BUN Creatinine Estim Creat Clear Calc Estimated GFR Random Glucose Fasting Glucose Calcium COVID-19 (ALEVRTO) Negative COVID-19 Clin Com See Note Discharge Plan Discharge Anticipated Discharge Date/Time: 10/07/20 11:41 Patient Disposition: er [facility] Referrals: Physician,Unknown [Primary Care Provider] - Discharge Medications: Continued acetaminophen 325 mg Tablet 650 mg PO Q4H PRN (Reason: fever/mild pain) RF: 0 polyvinyl alcohol [Artificial Tears (polyvin alc)] 1.4 % Drops 1 drp OPHTHALMIC (EYE) Q8H PRN (Reason: Dry Eyes) RF: 0 amlodipine 5 mg Tablet 5 mg PO DAILY RF: 0 bisacodyl 10 mg Suppository 10 mg ND Q24H PRN (Reason: Constipation) RF: 0 bisacodyl 5 mg Tablet,Delayed Release (Dr/Ec) 5 mg PO Q24H PRN (Reason: Constipation) RF: 0 cyanocobalamin (vitamin B-12) 1,000 mcg/mL Solution 1,000 mcg IM Q42D RF: 0 ibuprofen 100 mg/5 mL Suspension 600 mg PO Q6H PRN (Reason: Pain (Scale Score 4-6)) RF: 0 sodium chloride [Deep Sea Nasal] 0.65 % Aerosol,[place] 2 spray INTRANASAL Q4H PRN (Reason: Dry Nasal Passages) RF: 0 Hydrocerin (with petrolatum) Cream 1 appl TOPICAL QPM RF: 0 Calazime Skin Protectant Paste 1 applic topical QSHIFT RF: 0 loperamide 2 mg Capsule 2 mg PO Q6H PRN (Reason: Diarrhea) RF: 0 Hydrocerin (with petrolatum) Cream 1 appl TOPICAL Q1H PRN (Reason: Dry Skin) RF: 0 allopurinol 100 mg tablet 100 mg PO DAILY RF: 0 atorvastatin 40 mg tablet 40 mg PO BEDTIME RF: 0 amlodipine 2.5 mg tablet 2.5 mg PO DAILY RF: 0 famotidine 20 mg tablet 20 mg PO BID RF: 0 escitalopram oxalate 5 mg tablet 2.5 mg PO DAILY RF: 0 Incruse Ellipta 62.5 mcg/actuation blister with device 1 inh inhalation DAILY RF: 0 levothyroxine 88 mcg tablet 88 mcg PO SUTUWETHFRSA RF: 0 potassium chloride 10 mEq capsule, extended release 20 meq PO DAILY RF: 0 topiramate 25 mg tablet 25 mg PO BID RF: 0 quetiapine 100 mg tablet 100 mg PO TID RF: 0 tamsulosin 0.4 mg capsule 0.8 mg PO DAILY@1700 RF: 0 lithium carbonate 300 mg capsule 300 mg PO BID RF: 0 risperidone 1 mg tablet 1 mg PO BEDTIME RF: 0 sennosides [senna] 8.6 mg Tablet 8.6 mg PO Q24H PRN (Reason: Constipation) RF: 0 sodium bicarbonate 650 mg Tablet 650 mg PO TID Qty: 30 RF: 0 Discontinued doxycycline hyclate 100 mg Tablet 100 mg PO BID RF: 0 Discharge Orders: Discharge Order (Routine); Ordered 10/07/20 Ordered By: Germain Tilley Activity on Discharge: As tolerated Stand Alone Forms: Patient Portal Discharge page Health Concerns: aspiration subdural hematoma Plan of Treatment: modified diet , follow up at [facility]
== END 2020-10-07 14:48 | disposition skilled nursing facility (03) | DRG 193 ==
LOC: HO.ED 10:32 → HO.EDOVER 14:05 → HO.S3 15:16 → HO.IMC 10-04 16:36
PROVIDERS: Internal Medicine; Admitting Provider Student in an Organized Health Care Education/Training Program; Emergency Provider Student in an Organized Health Care Education/Training Program; PCP Hospitalist; Visit Provider Internal Medicine
DX: J18.9 Pneumonia, unspecified organism (principal); J96.01 Acute respiratory failure with hypoxia; G93.41 Metabolic encephalopathy; I62.03 Nontraumatic chronic subdural hemorrhage; J44.1 Chronic obstructive pulmonary disease with (acute) exacerbation; E87.0 Hyperosmolality and hypernatremia; J44.0 Chronic obstructive pulmonary disease with (acute) lower respiratory infection; J69.0 Pneumonitis due to inhalation of food and vomit; K21.9 Gastro-esophageal reflux disease without esophagitis; M10.9 Gout, unspecified; N40.0 Benign prostatic hyperplasia without lower urinary tract symptoms; E03.9 Hypothyroidism, unspecified; G30.9 Alzheimer's disease, unspecified; Z20.822 Contact with and (suspected) exposure to COVID-19; R94.31 Abnormal electrocardiogram [ECG] [EKG]; F02.80 Dementia in other diseases classified elsewhere, unspecified severity, without behavioral disturbance, psychotic disturbance, mood disturbance, and anxiety; I25.10 Atherosclerotic heart disease of native coronary artery without angina pectoris; Z79.890 Hormone replacement therapy; Z79.899 Other long term (current) drug therapy
CPT/HCPCS: 0241U; 36415; 70450; 71045; 71250; 74150; 80048; 80053; 80178; 81001; 81003; 83605; 83735; 83880; 83935; 84300; 85025; 85060; 87040; 87635; 92610; 93005; 94640; 96365; 96368; 99285; J1650; J2060; J2543; J3370

== ENCOUNTER 2020-10-29 16:41 | Emergency (ER) | payer MEDICARE, MEDICAID, SELFPAY ==
--- NOTE | ~2020-10-29 | XR_ITS ---
EXAMINATION: XR CHEST CLINICAL INFORMATION: Shortness of breath COMPARISON: Chest radiograph 09/30/[address] chest 09/30/2020 TECHNIQUE: Frontal view of the chest was obtained. FINDINGS: The lungs are hypoinflated, more so than previously seen. Patchy bilateral airspace disease is again noted, with improvement in the left upper lobe but otherwise not significantly different allowing for inspiratory changes and technique. No pleural effusions are seen. No pneumothorax is seen. Heart size mildly enlarged. XR/XR chest 1V IMPRESSION: Continued presence of bilateral patchy airspace disease, improved in the left upper lobe.
[2020-10-29 16:48] VITALS: BP 98/45; PULSE 105; RESP 25; TEMP 37.3; O2SAT 100; BMI 22.7
--- NOTE | 2020-10-29 17:50 | ECG_ITS ---
Test Reason : AMS Blood Pressure : / mmHG Vent. Rate : 095 BPM Atrial Rate : 095 BPM P-R Int : 170 ms QRS Dur : 118 ms QT Int : 420 ms P-R-T Axes : 030 -50 029 degrees QTc Int : 527 ms Normal sinus rhythm Right bundle branch block Left anterior fascicular block Bifascicular block Abnormal ECG When compared with ECG of 05-OCT-2020 13:37, Premature ventricular complexes are no longer Present Premature atrial complexes are no longer Present ST now depressed in Anterior leads Referred By: Peggy Post Electronically Signed By:Too Terry
--- NOTE | 2020-10-29 17:50 | ED_ITS ---
HPI - Altered Mental Status General Chief Complaint: Altered Mental Status Stated Complaint: AMS,COMBATIVE,DIFF BREATHING Time Seen by Provider: 10/29/20 17:42 History of Present Illness HPI narrative: Patient is an 85-year-old male with a history of dementia. History of COPD. History of being combative at the skilled nursing. Was also noted to have nausea vomiting. Sent in for further evaluation. No fever no chills. Patient is noted to be very agitated. Also had nausea vomiting. Patient unable to give detailed history. He has a long history of dementia. He is from a skilled nursing. Patient unable to give detailed history secondary to dementia. In addition to COPD patient also has a history of coronary artery disease, subdural hematoma, seizure, hyperlipidemia, hypertension, hypothyroid. Multiple CVAs in the past. Unable to ascertain as to what kind of deficit patient has on a chronic basis. Related Data Home Medications Medication Instructions Recorded Confirmed Incruse Ellipta 1 inh INHALATION DAILY 07/14/20 09/30/20 allopurinol 100 mg PO DAILY 07/14/20 09/30/20 amlodipine 2.5 mg PO DAILY 07/14/20 09/30/20 atorvastatin 40 mg PO BEDTIME 07/14/20 09/30/20 escitalopram oxalate 2.5 mg PO DAILY 07/14/20 09/30/20 famotidine 20 mg PO BID 07/14/20 09/30/20 levothyroxine 88 mcg PO SUTUWETHFRSA 07/14/20 09/30/20 lithium carbonate 300 mg PO BID 07/14/20 09/30/20 potassium chloride 20 meq PO DAILY 07/14/20 09/30/20 risperidone 1 mg PO BEDTIME 07/14/20 09/30/20 tamsulosin 0.8 mg PO DAILY@1700 07/14/20 09/30/20 topiramate 25 mg PO BID 07/14/20 09/30/20 sennosides [senna] 8.6 mg PO Q24H PRN 07/15/20 09/30/20 Calazime Skin Protectant Paste 1 applic TOPICAL QSHIFT 09/30/20 09/30/20 Hydrocerin (with petrolatum) 1 appl TOPICAL Q1H PRN 09/30/20 09/30/20 Hydrocerin (with petrolatum) 1 appl TOPICAL QPM 09/30/20 09/30/20 acetaminophen 650 mg PO Q4H PRN 09/30/20 09/30/20 amlodipine 5 mg PO DAILY 09/30/20 09/30/20 bisacodyl 5 mg PO Q24H PRN 09/30/20 09/30/20 bisacodyl 10 mg AR Q24H PRN 09/30/20 09/30/20 cyanocobalamin (vitamin B-12) 1,000 mcg IM Q42D 09/30/20 09/30/20 loperamide 2 mg PO Q6H PRN 09/30/20 09/30/20 polyvinyl alcohol [Artificial 1 drp OPHTHALMIC (EYE) Q8H PRN 09/30/20 09/30/20 Tears (polyvin alc)] sodium chloride [Deep Sea Nasal] 2 spray INTRANASAL Q4H PRN 09/30/20 09/30/20 Previous Rx's Medication Instructions Recorded sodium bicarbonate 650 mg PO TID #30 tab 07/17/20 quetiapine 25 mg PO TID #0 tab 10/07/20 Allergies Allergy/AdvReac Type Severity Reaction Status Date / Time No Known Allergies Allergy Verified 08/12/20 16:36 [No Known Allergies*] Review of Systems Review of Systems: Yes Unobtainable due to mental status PMFSH Past Medical History Medical History Alzheimer disease CAD (coronary artery disease) Chronic pain COPD (chronic obstructive pulmonary disease) COVID-19 CVA (cerebral vascular accident) Dysphagia GERD (gastroesophageal reflux disease) Gout Hypothyroid Pneumonia Social History Social History Household Members: Caregiver Housing: Skilled Nursing Alcohol intake: never Smoking Status: Unknown if ever smoked Use of substances other than those prescribed or required for medical reasons: No Any prior treatment program specific to substance use: No Advance Directives: No Advance Directives Information Provided: Yes service: No Current occupational status: disabled Physical Exam Vital Signs: Vital Signs: Last Vital Signs Temp 99.1 F 10/29/20 16:48 Pulse 105 H 10/29/20 16:48 Resp 25 H 10/29/20 16:48 BP 98/45 L 10/29/20 16:48 Pulse Ox 100 10/29/20 16:48 Body Mass Index 22.7 Appearance: Alert. Oriented to self only, no acute distress Eyes: Pupils equal, round and reactive to light. ENT: Pharynx normal. Neck: Normal inspection. Neck supple. No lymph nodes noted. No crepitus CVS: Normal heart rate and rhythm. Pulses normal. Normal S1 and S2 Respiratory: Diminished breath sounds bilaterally Abdomen: Soft and nontender. No rigidity. No distention. good BS x4 Skin: Skin warm and dry. Normal skin color. Normal skin turgor. Extremities: No lower extremity edema. Neurovascular intact to all extremities. No Lacerations. No Rash Neuro: Contracted, oriented to self only. Moves extremities Course Course Course Narrative: 7:20- Patient's blood gas showed a pH of 7.1. With a normal pCO2. Labs are pending. Multiple nurse has attempted IV line and also blood draw. Unfortunately we were unsuccessful. Will attempt to place a central line. CT scan still pending Procedures Intubation Time out performed: No sedative: none Laryngoscope: Fouzia ET Tube Size: 7.5 ET Tube Uncuffed: No Tube Secured Depth (cm): 23 Tube Secured Location: lips Tube Placement Confirmation: visualized tube passing through cords Patient Tolerated Procedure: well Intubation Complications: none Additional Comments: Patient vomiting copiously. Intubated to protect airway due to the altered mental status cardiac arrest and airway protection MDM - Altered Mental Status MDM Narrative Medical decision making narrative: Question change in mental status. Patient is nauseous vomiting. Labs ordered. CT scan of the head and abdomen ordered. Given history of COPD an ABG was ordered initially. The pH was 7.1. The pCO2 was normal. There is no CO2 retention noted. Unsure as to nature of the acidosis. Lactate is pending. Having difficulty obtaining blood work. Was about to put in a central line. Patient went into cardiac arrest. Went to a bradycardic pattern. Epinephrine and atropine was given. Patient nauseous vomiting large amount of yellow content. Patient was emergently intubated using a 7.5 ET tube. Turn to the side suction vigorously. CPR was then put back in progress. Patient is now in an asystolic pattern. Bicarb given. Calcium given for possible hyperkalemia. CPR in progress. Two additional rounds of epinephrine given. Patient in asystole. Echocardiogram was done. There was no cardiac activity. Given patient's extensive past medical history. The code was called at 20:21. Patient's case discussed with Jonathan Ayala, the machine presser for patient. Lab Data Labs: Lab Results 10/29/20 10/29/20 10/29/20 Range/Units 18:27 18:41 19:09 O2 Saturation 74.0 93.0 % ABG pH at Pt Temp 7.07 L* 7.10 L* (7.35-7.45) ABG pH (Temp Correct) 7.07 L* 7.11 L* (7.35-7.45) ABG pCO2 at Pt Temp 41 40 (32-45) mmHg ABG pCO2 (Temp Corrct 41 39 (32-45) mmHg ABG pO2 at Pt Temp 58 L 93 (83-108) mmHg ABG pO2 (Temp Correct 57 L 90 (83-108) ABG HCO3 12 L 13 L (22-26) mmol/L ABG Base Excess (Actual) -16.9 -16.0 mmol/L POC Glucose 169 H (60-115) mg/dL Critical Care Time Critical Care Time Total Critical Care Time: 40 Attestation: I have personally provided 40 minutes of critical care time exclu sive of time spent on separately billable procedures. Time includes review of lab data, radiology results, discussion with consultants, and monitoring for potential decompensation. Interventions were performed as documented above Discharge Plan Discharge Clinical Impression: Cardiac arrest Patient Disposition:
[2020-10-29] MEDS: 0.9 % Sodium Chloride 500 ML 999 ML IV (18:32)
[2020-10-29 18:37] LABS: ABG Base Excess -16.9 mmol/L; ABG HCO3 12 mmol/L (22-26); ABG pCO2 41 mmHg (32-45); ABG pCO2 TC 41 mmHg (32-45); ABG pH 7.07 (7.35-7.45); ABG pH TC 7.07 (7.35-7.45); ABG pO2 58 mmHg (83-108); ABG pO2 TC 57 (83-108)
[2020-10-29 18:37] LABS: ABG Refer to POC result
[2020-10-29 18:44] LABS: Glucose, Whole Blood 169 mg/dL (60-115)
--- NOTE | 2020-10-29 19:00 | PC.NURSE ---
Late entry note: Pt presented to the ED from [facility], with reports of aggression towards staff at the facility. He is lethargic at this time, with vague responses to questions. He will nod his head indicating that he is not in pain, and mumbles his name when asked what his name is. Vital signs at time of triage were stable, with the exception of RR which was elevated. Skin appeared mottled, and pt was a difficult IV stick. A 22 gauge IV was established, but blood draw was initially unable to be obtained. Care turned over to night RN.
[2020-10-29 19:07] VITALS: O2SAT 96
[2020-10-29 19:18] LABS: ABG Refer to POC result
[2020-10-29 19:20] LABS: ABG HCO3 13 mmol/L (22-26); ABG pCO2 40 mmHg (32-45); ABG pCO2 TC 39 mmHg (32-45); ABG pH TC 7.11 (7.35-7.45); ABG pO2 93 mmHg (83-108); ABG pO2 TC 90 (83-108)
[2020-10-29 19:26] VITALS: BP 96/27; PULSE 97; RESP 30; TEMP 36.4; O2SAT 95
--- NOTE | 2020-10-29 19:30 | PC.NURSE ---
Edy is intermittently answering questions, dvaid that is latvian speaking was communicating with the patient with the same intermittent responses. This RN asked the patient is he was in pain or difficulty breathing and the patient looked at this RN and shook his head no. This RN and david are attempting to obtain bloodwork at this time.
--- NOTE | 2020-10-29 19:45 | PC.NURSE ---
This RN, two RN's prior and three ED Techs have attempted to obtain bloodwork which was unsuccessful. Patient is maintaining his airway, with multiple areas attempted to place to obtain an accurate sp02 reading which intermittently gives a good pleth, patients maintaining an sp02 of 92-95% on 2L via NC. Dr Post is aware and this RN is getting the supplies needed to place a central line.
[2020-10-29 19:56] VITALS: BP 124/49; PULSE 81; RESP 20; O2SAT 95
[2020-10-29 20:08] VITALS: O2SAT 62
--- NOTE | 2020-10-29 20:10 | PC.NURSE ---
This RN, two RN's prior and three ED Techs have attempted to obtain bloodwork which was unsuccessful. Patient is maintaining his airway, with multiple areas attempted to place to obtain an accurate sp02 reading which intermittently gives a good pleth, patients maintaining an sp02 of 92-95% on 2L via NC. Will make Dr Post aware.
--- NOTE | 2020-10-29 20:18 | PC.NURSE ---
[facility] [address] [facility] APPOINTED GUARDIAN. TYLER GUTIERREZ. FULL CODE.
--- NOTE | 2020-10-29 21:17 | PC.NURSE ---
Patient was declined at this time By [facility].
--- NOTE | 2020-10-29 22:14 | PC.NURSE ---
HOME IS [address] [place] [address]. [facility]/ THIS IS PER [facility] STAFF, ALVARO [phone]
== END 2020-10-29 22:00 | disposition expired ==
PROVIDERS: Nurse Practitioner Family; Emergency Provider Emergency Medicine Emergency Medical Services; PCP Hospitalist
DX: I46.9 Cardiac arrest, cause unspecified (principal); Z79.899 Other long term (current) drug therapy
CPT/HCPCS: 31500; 51702; 71045; 82947; 93005; 96360; 99284; 99291; J0171; J0461